=== PATIENT | female | born 1935 | race Caucasian/White ===

== ENCOUNTER 2016-10-30 19:25 | Inpatient (IN) ==
[2016-10-30 20:06] LABS: Basophils % 0.4 %; Eosinophils % 0.4 %; Hematocrit 40.5 % (35.3-44.9); Hemoglobin 13.5 g/dL (11.5-15.4); Immature Granulocytes % 0.4 % (0-4); Immature Platelets 3.4 % (1.1-6.1); Lymphocytes # 0.3 K/mcL (0.6-4.6); Mean Corpuscular HGB Conc 33.3 g/dL (31.6-35.5); Mean Corpuscular Volume 92.9 fL (83.0-100.0); Mean Platelet Volume 10.3 fL (9.4-12.4); Monocytes # 0.4 K/mcL (0.0-1.3); Monocytes % 6.9 %; Neutrophils # 4.7 K/mcL (1.6-8.9); Platelet Count 122 K/mcL (140-400); Red Blood Count 4.36 M/mcL (3.82-4.97); Red Cell Distribution Width 12.3 % (11.5-14.5); Segmented Neutrophils % 86.9 %
[2016-10-30] MEDS ORDERED: Acetaminophen 325 MG TABLET PO ONE (20:22)
[2016-10-30 20:23] LABS: Alanine Aminotransferase 12 Units/L (0-55); Albumin 3.7 g/dL (3.5-5.0); Albumin/Globulin Ratio 1.2 (1.1-2.2); Alkaline Phosphatase 88 Units/L (38-126); Aspartate Amino Transferase 28 Units/L (5-34); BUN/Creatinine Ratio 19 (6-26); Bilirubin,Total 0.8 mg/dL (0.2-1.2); Blood Urea Nitrogen 14 mg/dL (7-20); Calcium 8.6 mg/dL (8.6-10.8); Carbon Dioxide 18 mEq/L (19-29); Chloride 105 mEq/L (98-109); Glucose 116 mg/dL (70-99); Osmolality,Calculated 283 (280-300); Potassium 3.7 mEq/L (3.5-4.5); Sodium 136 mEq/L (136-145); Total Protein 6.7 g/dL (6.0-8.3); eGFR For African Americans > 60 (> 60); eGFR For Non-African Americans > 60 (> 60)
--- NOTE | 2016-10-30 20:27 | Emergency Department Note ---
Disposition Clinical Impression: Influenza B Disposition: Admitted As Inpatient Condition: Fair General Adult HPI - General Chief complaint: ED Weakness Stated complaint: generalized weakness Time Seen by Provider: 10/30/16 19:27 Source: patient, EMS Limitations: no limitations Nursing Notes Reviewed: Yes Vital Signs Reviewed: Yes - History of Present Illness HPI Narrative: 81 year old female with a past medical history of thyroid disease and HTN presented to the ED with a 4-5 day history of a non-productive cough that is causing headaches. She is also complaining of generalized fatigue and weakness. She has tried taking codeine to improve her cough but states that it did not relieve her symptoms. Associated fever and myalgias. Patient denies fever, chest pain, nausea, vomiting, diarrhea, and urinary symptoms. Pain Scale: 0 - Related Data Home Medications Medication Instructions Recorded Confirmed Clorazepate Dipotassium [Tranxene 7.5 mg PO BID PRN 10/30/16 10/30/16 T-Tab] Metoprolol XL (24 HR) Succ [Toprol 25 mg PO DAILY 10/30/16 10/30/16 XL] Sertraline [Zoloft] 25 mg PO DAILY 10/30/16 10/30/16 Allergies Allergy/AdvReac Type Severity Reaction Status Date / Time No Known Allergies Allergy Verified 10/30/16 19:29 All systems ED: reviewed and negative except as stated. Constitutional: Reports: chills, weakness Eyes: Denies: eye pain ENT ED: Denies: ear pain Cardiovascular: Denies: chest pain Respiratory: Reports: cough. Denies: dyspnea Gastrointestinal: Denies: abdominal pain, nausea Genitourinary: Denies: urgency, dysuria Musculoskeletal: Reports: other (myalgias) Integumentary: Denies: rash Neurological: Reports: headache Endocrine: Denies: fatigue Past Medical History - Past Medical History Attestation: Yes The following information was validated with the patient. Source: patient Medical history: Reports: hypertension, thyroid disease Psychiatric history: Reports: anxiety POSTER history: Reports: non-contributory - Social History Smoking Status: Never smoker Smokeless Tobacco Status: No Alcohol use: Reports: none Drug use: Reports: none Physical Exam - General Limitations: no limitations General appearance: alert, in no apparent distress - Head Head exam: atraumatic, normocephalic - Eye Eye exam: Present: normal appearance - ENT ENT exam: normal exam, normal oropharynx - Neck Neck exam: Present: normal inspection - Chest Chest inspection: Present: normal inspection, symmetric chest wall rise. Absent : tenderness - Respiratory Respiratory exam: Present: normal lung sounds bilaterally. Absent: respiratory distress, wheezes - Cardiovascular Cardiovascular exam: Present: normal rhythm, tachycardia - Abdominal Exam Abdominal exam: Present: soft, Non-Tender - Extremities Exam Extremities exam: Present: normal inspection. Absent: tenderness - Back Exam Back exam: Present: normal inspection. Absent: tenderness - Neurological Exam Neurological exam: Present: alert, oriented X3 - Psychiatric Psychiatric exam: Present: normal affect, normal mood Course - Reevaluation(s) Reevaluation #1: Patient has persistent tachycardia despite fluids. Patient's headache has required Tylenol as well as Toradol but remains. Discussed disposition with her and her family at this time she feels she is not to take care of herself and her has concerns about taking care of her home. In light of the patient's persistent tachycardia and influenza B+, it is reasonable to bring the patient in for continued observation and gentle fluid hydration. - Consultations Consultation #1: Dr. Iraheta accepts. Vital Signs Temperature 99.0 F 10/30/16 19:26 Pulse Rate 120 10/30/16 19:26 Respiratory Rate 28 10/30/16 19:26 Blood Pressure 152/81 10/30/16 19:26 O2 Sat by Pulse Oximetry 96 10/30/16 19:26 Temperature 98.1 F 10/31/16 00:49 Pulse Rate 101 10/31/16 00:49 Respiratory Rate 14 10/31/16 00:49 Blood Pressure 111/70 10/31/16 00:49 O2 Sat by Pulse Oximetry 95 10/31/16 00:49 Oxygen Delivery Oxygen Delivery Room Air Medical Decision Making - Medical Records Medical records reviewed: Yes I reviewed the patient's medical records. - Lab Data Lab results reviewed: Yes I reviewed the patient's lab results. Result diagrams: 10/30/16 19:57 10/30/16 19:57 Lab Results 10/30/16 10/30/16 10/30/16 Range/Units 19:34 19:57 19:57 WBC 5.4 (4.3-11.1) K/mcL RBC 4.36 (3.82-4.97) M/mcL Hgb 13.5 (11.5-15.4) g/dL Hct 40.5 (35.3-44.9) % MCV 92.9 (83.0-100.0) fL MCH 31.0 (28.0-33.3) pg MCHC 33.3 (31.6-35.5) g/dL RDW 12.3 (11.5-14.5) % Plt Count 122 L (140-400) K/mcL MPV 10.3 (9.4-12.4) fL Immature Gran % 0.4 (0-4) % Seg Neutrophils % 86.9 % Lymphocytes % 5.0 % Monocytes % 6.9 % Eosinophils % 0.4 % Basophils % 0.4 % Neutrophils # 4.7 (1.6-8.9) K/mcL Lymphocytes # 0.3 L (0.6-4.6) K/mcL Monocytes # 0.4 (0.0-1.3) K/mcL Eosinophils # 0.0 (0.0-0.6) K/mcL Basophils # 0.0 (0.0-0.2) K/mcL Immature Plt Fraction 3.4 (1.1-6.1) % Sodium 136 (136-145) mEq/L Potassium 3.7 (3.5-4.5) mEq/L Chloride 105 (98-109) mEq/L Carbon Dioxide 18 L (19-29) mEq/L BUN 14 (7-20) mg/dL Creatinine 0.72 (0.57-1.11) mg/dL Est GFR ( Amer) > 60 (> 60) Est GFR (Non-Af Amer) > 60 (> 60) BUN/Creatinine Ratio 19 (6-26) Glucose 116 H (70-99) mg/dL POC Glucose 120 H (58-89) Calculated Osmolality 283 (280-300) Calcium 8.6 (8.6-10.8) mg/dL Total Bilirubin 0.8 (0.2-1.2) mg/dL AST 28 (5-34) Units/L ALT 12 (0-55) Units/L Alkaline Phosphatase 88 (38-126) Units/L Troponin I (0-0.03) ng/mL Serum Total Protein 6.7 (6.0-8.3) g/dL Albumin 3.7 (3.5-5.0) g/dL Globulin 3.0 (2.4-3.5) g/dL Albumin/Globulin Ratio 1.2 (1.1-2.2) TSH 0.686 (0.350-4.840) mcIU/mL Ur Specimen Adequacy Urine Color (Yellow) Urine Clarity (Clear) Urine pH (5.0-8.0) pH Units Ur Specific Hammond (1.010-1.025) Urine Protein (Neg-Trace) mg/dL Urine Glucose (UA) (Normal) mg/dL Urine Ketones (Negative) mg/dL Urine Blood (Negative) Urine Nitrite (Negative) Urine Bilirubin (Negative) Urine Urobilinogen (Normal) mg/dL Ur Leukocyte Esterase (Negative) Urine Microscopic RBC (0-3) per hpf Urine Microscopic WBC (0-3) per hpf Ur Squamous Epith Cells (None-Few) per lpf Urine Bacteria (None-Few) per hpf Hyaline Casts (None-Few) per lpf Ur Culture Indicated? (NO) 10/30/16 10/30/16 Range/Units 19:57 22:41 WBC (4.3-11.1) K/mcL RBC (3.82-4.97) M/mcL Hgb (11.5-15.4) g/dL Hct (35.3-44.9) % MCV (83.0-100.0) fL MCH (28.0-33.3) pg MCHC (31.6-35.5) g/dL RDW (11.5-14.5) % Plt Count (140-400) K/mcL MPV (9.4-12.4) fL Immature Gran % (0-4) % Seg Neutrophils % % Lymphocytes % % Monocytes % % Eosinophils % % Basophils % % Neutrophils # (1.6-8.9) K/mcL Lymphocytes # (0.6-4.6) K/mcL Monocytes # (0.0-1.3) K/mcL Eosinophils # (0.0-0.6) K/mcL Basophils # (0.0-0.2) K/mcL Immature Plt Fraction (1.1-6.1) % Sodium (136-145) mEq/L Potassium (3.5-4.5) mEq/L Chloride (98-109) mEq/L Carbon Dioxide (19-29) mEq/L BUN (7-20) mg/dL Creatinine (0.57-1.11) mg/dL Est GFR ( Amer) (> 60) Est GFR (Non-Af Amer) (> 60) BUN/Creatinine Ratio (6-26) Glucose (70-99) mg/dL POC Glucose (58-89) Calculated Osmolality (280-300) Calcium (8.6-10.8) mg/dL Total Bilirubin (0.2-1.2) mg/dL AST (5-34) Units/L ALT (0-55) Units/L Alkaline Phosphatase (38-126) Units/L Troponin I 0.00 (0-0.03) ng/mL Serum Total Protein (6.0-8.3) g/dL Albumin (3.5-5.0) g/dL Globulin (2.4-3.5) g/dL Albumin/Globulin Ratio (1.1-2.2) TSH (0.350-4.840) mcIU/mL Ur Specimen Adequacy Urine Color Yellow (Yellow) Urine Clarity Cloudy A (Clear) Urine pH 6.0 (5.0-8.0) pH Units Ur Specific Hammond 1.022 (1.010-1.025) Urine Protein 30 H (Neg-Trace) mg/dL Urine Glucose (UA) Normal (Normal) mg/dL Urine Ketones >=160 H (Negative) mg/dL Urine Blood Large H (Negative) Urine Nitrite Negative (Negative) Urine Bilirubin Negative (Negative) Urine Urobilinogen Normal (Normal) mg/dL Ur Leukocyte Esterase Negative (Negative) Urine Microscopic RBC 0-3 (0-3) per hpf Urine Microscopic WBC 0-3 (0-3) per hpf Ur Squamous Epith Cells Many H (None-Few) per lpf Urine Bacteria None Seen (None-Few) per hpf Hyaline Casts None Seen (None-Few) per lpf Ur Culture Indicated? NO (NO) - Radiology Data Radiology results reviewed: Yes I reviewed the patient's radiology results. Attestation Statement - Attestation Attestation: For this encounter, I have reviewed the resident, BAGGAGE [employer]ER, or PA documentation, treatment plan, and medical decision making; and I have had face to face time with this patient. 81-year-old female presents with weakness and fatigue increasing over the past 2 -3 days. Patient states her symptoms have been present for the past week however are worse over the past couple days. Patient is tachycardic on the initial evaluation which improved mildly with IV fluids. Patient has lungs that are clear to auscultation bilaterally. Laboratory evaluation revealed influenza which is a likely cause of her symptoms. Patient is a high risk patient and will be given Tamiflu. After the treatment with IV fluids the patient improved mildly but did not feel safe returning home and had difficulty with ambulation. Patient felt comfortable with the plan for admission to the hospital for IV hydration and further evaluation and observation.
[2016-10-30] MEDS ORDERED: 0.9 % Sodium Chloride 1,000 ML IV ONE (21:00)
[2016-10-30 21:03] LABS: Thyroid Stimulating Hormone 0.686 mcIU/mL (0.350-4.840)
[2016-10-30] MEDS ORDERED: 0.9 % Sodium Chloride 500 ML IV ONE (21:32)
[2016-10-30] MEDS ORDERED: Ketorolac 15 MG/ML VIAL IVP ONE (21:52)
[2016-10-30 22:49] LABS: Bilirubin,Urine Negative (Negative); Blood,Urine Large (Negative); Clarity,Urine Cloudy (Clear); Color,Urine Yellow (Yellow); Glucose,Urine (UA) Normal (Normal); Ketones,Urine >=160 mg/dL (Negative); Leukocyte Esterase,Urine Negative (Negative); Nitrite,Urine Negative (Negative); Protein,Urine 30 mg/dL (Neg-Trace); Specific Gravity,Urine 1.022 (1.010-1.025); Urobilinogen,Urine Normal (Normal)
[2016-10-30 22:51] LABS: Bacteria,Urine None Seen per hpf (None-Few); Hyaline Casts,Urine None Seen per lpf (None-Few); RBC,Urine 0-3 per hpf (0-3); Squamous Epithelial Cell,Urine Many per lpf (None-Few); WBC,Urine 0-3 per hpf (0-3)
[2016-10-31] MEDS ORDERED: Acetaminophen 325 MG TABLET PO PRN (00:57)
[2016-10-31] MEDS ORDERED: *HR* Morphine 2 MG/ML SYRINGE IVP PRN (00:57)
[2016-10-31] MEDS ORDERED: *HR* OxyCODONE Immed Rel 5 MG TABLET PO PRN (00:57)
[2016-10-31] MEDS ORDERED: Pantoprazole 40 MG VIAL IVP STA (00:57)
[2016-10-31] MEDS ORDERED: Naloxone 0.4 MG/ML INJ IVP PRN (00:57)
[2016-10-31] MEDS ORDERED: Ipratropium/Albuterol Neb 3 ML IH PRN (01:00)
[2016-10-31] MEDS ORDERED: 0.9 % Sodium Chloride 1,000 ML IVC SCH (01:00)
[2016-10-31] MEDS ORDERED: Benzonatate 100 MG CAPSULE PO PRN ×2 (01:00→01:17)
[2016-10-31] MEDS ORDERED: Dextromethorphan Polistrx(12h) 30 MG/5 ML UDC PO PRN (01:17)
--- NOTE | 2016-10-31 01:23 | Internal Med History&Physical ---
Date of Encounter: 11/27/16 Time of Encounter: 23:00 Assessment and Plan (1) SIRS due to infectious process with acute organ dysfunction Status: Acute . (2) Metabolic acidosis Status: Acute . (3) Thrombocytopenia Status: Acute . (4) Frail elderly Status: Acute . (5) Influenza B Status: Acute . (6) Dehydration symptoms Status: Acute . (7) Cephalgia Status: Acute . Qualifiers: Headache type: unspecified Headache chronicity pattern: acute headache Intractability: not intractable Qualified Code(s): R51 - Headache (8) Acute viral syndrome Status: Acute . Internal Medicine - H&P: HPI Chief complaint: Generalized weakness Admitted From: Emergency Dept Plans for Post Hospital Care: Home History of present illness: Ms. Burdick is a 81 year old female with history notable for hypertension, depression and anxiety, H/O subclinical thyroid disorder, prior history of shingles, osteoarthritis, osteopenia, nonsmoker. The patient was visited and interviewed and examined. The patient is admitted to [facility] via the emergency department when she presents via EMS services from home with a five-day history of increasing generalized weakness nonproductive cough shortness of breath chills myalgias and malaise. Symptoms are worsened in the last 2 days. Cough noteworthy for aggravation of increasing headache frequency. Trial of codeine to suppress cough of the ineffective. No overt fevers nausea vomiting abdominal pain diarrhea or constipation or urinary symptoms reported. No focus of chest pain syncopal or presyncopal complaints noted. Findings In the ED: Vital signs no temperature 99 pulse 100-120 respirations 24- 28 BP 150-152/68-81. O2 saturation 96% room air. CBC 5.4 hemoglobin 13.5 platelets 122,000. Differential normal. Metabolic panel normal except carbon dioxide 18. BUN 14 creatinine 0.72. Glucose 116 osmolality 283. Hepatic function normal. Rapid influenza A and B swab positive for "B". Chest x-ray demonstrated no acute cardiopulmonary process. Cardiac and mediastinal silhouettes normal. Scattered calcified granulomata. Lung burgess clear. No evidence for effusion pneumothorax. Osseous structures are stable. Cumulative laboratory and radiographic data base will be considered and discussed. Pertinent ancillary medical records including ECW and PCI documentation when available was reviewed and considered. Given the patient's presenting concerns, past medical history, clinical findings and symptoms, she is admitted at this time will undergo further evaluation and disposition. Orders were written as per the computerized physician food service order clerk system.......................................................................... .................... Consultative opinions will be sought as clinical circumstances justify. Pain management needs will be addressed. Laboratory+ radiographic data base will be updated as appropriate. Studies include: Cultures of blood and urine and sputum cardiac injury panel, BNP, troponin metabolic and hematologic panel, magnesium phosphorus, ionized calcium , thyroid panel lipid profile, A1c C-peptide, CRP sedimentation rate, respiratory infection profile, respiratory virus panel, blood gas, lactic acid, serologies, etc. Precautions: Aspiration, fall, delirium protocol/surveillance initiated. Telemetry with continuous hemodynamic monitoring and pulse oximetry initiated. Empiric antibiotic coverage: Intravenous Rocephin and azithromycin pending culture data. Oral Tamiflu therapy initiated. Special studies: CT chest, chest x-ray, telemetry, EKG. Pulmonary toilet: Incentive spirometry, aerosol bronchodilator, mucolytic, antitussive, supplemental oxygen. Corticosteroid therapy. CPAP/BiPAP supplemental oxygen delivery employed. Aerosol Mucomyst therapy may be employed. Fluid and electrolyte repletion efforts will proceed. Careful attention to fluid balance and renal recovery will be emphasized. Avoidance of nephrotoxic exposure and adverse drug drug interaction in the setting of impaired renal function will be monitored closely. Acute coronary syndrome protocol/surveillance initiated. DVT and PUD prophylaxis initiated: PPI therapy, intermittent pneumatic cuffs. Subcutaneous heparin was held due to thrombocytopenia. Early ambulation will be encouraged. Immunization updates recommended. Influenza and pneumococcal vaccinations as part of ongoing preventative healthcare recommendations strongly recommended. Smoking cessation counseling briefly addressed. Patient is a nonsmoker. Advanced care directive discussion briefly addressed. Patient does not declare any healthcare restrictions at this time. Cardiovascular risk appraisal and cardiovascular risk reduction efforts will be emphasized. Physical +occupational therapy may be counseled to evaluate patient's functional capacity and progressi mobility of her circumstances justify. Nutrition/dietary education counseling may be considered as circumstances justify. Outpatient medication schedules will be reviewed, confirmed and facilitated as appropriate. Reconciliation of home treatments including adjustments, substitutions and reintroduction into the treatment regimen will address necessary maintenance therapies for chronic pre-existing medical conditions. Plan of care has been reviewed and discussed in detail with the patient. Questions addressed. Hospital course dictated by clinical findings, treatment response and potential consultative interventions. Patient is at risk for further acute clinical decline due to her age, chief complaints and comorbid conditions. Condition is serious. Prognosis is guarded. CODE STATUS is full. Past Med Surg Social Fam HX - Past Medical History Source: old records reviewed Medical history: arthritis, hypertension, osteoporosis, thyroid disease, other ( H/O shingles) Psychiatric history: anxiety, depression - Past Surgical History Surgical History: appendectomy, cholecystectomy, other - Social History Smoking Status: Never smoker Smokeless Tobacco Status: No Alcohol use: none Drug use: none Occupational status: retired Current living situation: With Family Activity Level: Independent ambulation, Mostly sedentary Recent Out of Country Travel Within the Last 8 Weeks: No Exposure or Possible Exposure to Illness During Travel: No Internal Medicine - H&P: Meds Clorazepate Dipotassium [Tranxene T-Tab] 7.5 mg PO BID PRN 10/30/16 [History] Metoprolol XL (24 HR) Succ [Toprol Xl] 25 mg PO DAILY 10/30/16 [History] Sertraline [Zoloft] 25 mg PO DAILY 10/30/16 [History] Calcium Carbonate [Tums] 1,000 mg PO TID 30 Days 11/05/16 [Rx] Lactobacillus [Culturelle] 2 each PO DAILY 30 Days 11/05/16 [Rx] Allergies No Known Allergies Allergy (Verified 10/30/16 19:29) All Systems PM: A 10-system review of systems was performed and is negative for pertinent findings except as documented above in the HPI. - Constitutional Constitutional: chills, malaise, weakness, no fever(s), no night sweats - EENT Eyes: as per HPI, no change in vision, no discharge, no pain, no photophobia Ears: as per HPI, no ear discharge, no ear pain, no tinnitus Nose, mouth and throat: as per HPI, nasal congestion, post-nasal drip, sinus pain, no dysphagia, no nasal discharge, no neck pain, no sore throat - Cardiovascular Cardiovascular ROS IM: as per HPI, no chest pain, no diaphoresis, no dyspnea, no edema, no lightheadedness, no palpitations, no syncope - Respiratory Respiratory: as per HPI, cough, dyspnea, dyspnea on exertion, wheezing, chest congestion, no hemoptysis, no excessive phlegm production - Gastrointestinal Gastrointestinal: as per HPI, no abdominal pain, no diarrhea, no hematemesis, no hematochezia, no melena, no nausea, no vomiting - Genitourinary Genitourinary: as per HPI, no change in urinary stream, no dysuria, no flank pain, no hematuria - Musculoskeletal Musculoskeletal ROS IM: as per HPI, myalgias, no numbness, no tingling - Integumentary Integumentary IM: as per HPI, no rash, no unusual bruising - Neurological Neurological ROS: as per HPI, headache(s), no confusion, no convulsions, no focal weakness, no numbness, no tingling, no tremor(s) - Psychiatric Psychiatric: as per HPI - Endocrine Endocrine IM: as per HPI - Hematologic/Lymphatic Hematologic/Lymphatic: as per HPI, no easy bruising - Allergic/Immunologic Allergic/Immunologic: as per HPI - Constitutional Vitals: Temp Pulse Resp BP Pulse Ox 98.1 F 101 14 111/70 95 10/31/16 00:49 10/31/16 00:49 10/31/16 00:49 10/31/16 00:49 10/31/16 00:49 General appearance: Present: cooperative, mild distress, A&O X 3, pleasant, answers questions appropriately - Head Head exam: Present: atraumatic, normocephalic - Eye Eye exam: Present: EOMI, PERRL, conjuntiva pink, sclera anicteric Pupils: Present: normal accommodation, PERRL - ENT ENT exam: Present: mucous membranes moist, normal oropharynx - Neck Neck exam general surgery: Present: full ROM, supple, trachea midline. Absent: lymphadenopathy - Respiratory Respiratory exam: Present: decreased breath sounds, rhonchi, wheezes. Absent: accessory muscle use, rales - Cardiovascular Cardiovascular exam: Present: distant heart sounds, RRR, +S1, +S2. Absent: diastolic murmur, gallop, rubs, systolic murmur - GI/Abdominal GI/Abdominal exam: Present: normal bowel sounds, soft, no peritoneal signs. Absent: distended, tenderness - Extremities Exam Extremities exam: Present: full ROM, warm, radial pulses palpable and symetrical. Absent: calf tenderness, cyanotic, pedal edema - Neurological Exam Neurological exam: Present: alert, CN II-XII intact, oriented X3, no focal deficits. Absent: pronater drift, facial droop, speech deficit - Psychiatric Psychiatric exam: Present: normal affect, normal mood - Skin Skin exam: Present: dry, intact, warm. Absent: petechiae, rash, urticaria, vesicles Internal Med - H&P Results - Labs CBC & Chem 7: 11/05/16 08:59 11/05/16 08:59 - Impressions Vital Signs Temp Pulse Resp BP Pulse Ox 10/31/16 00:49 98.1 F 101 14 111/70 95 10/30/16 23:42 0 0/0 10/30/16 23:37 103 16 130/58 98 10/30/16 22:00 108 20 142/64 97 10/30/16 21:30 108 22 134/52 95 10/30/16 21:00 112 24 131/57 96 10/30/16 20:00 112 24 150/68 96 10/30/16 19:26 99.0 F 120 28 152/81 96 Intake and Output 10/30/16 10/30/16 10/31/16 15:59 23:59 07:59 Intake Total 500 / 500 0 / 0 Output Total 0 / 0 Balance 500 / 500 0 / 0 Intake: IV Fluids 500 / 500 0.9 % Sodium Chloride 500 500 / 500 ML @ 9999 mls/hr IV BOLUS ONE Rx#:[id number] Oral 0 / 0 Output: Urine 0 / 0 Other: Weight 94 kg 45.7 kg Blood Glucose* 120 Patient Weight 10/31/16 23:59 Weight 45.7 kg Short CBC 10/30/16 Range/Units 19:57 WBC 5.4 (4.3-11.1) K/mcL Hgb 13.5 (11.5-15.4) g/dL Hct 40.5 (35.3-44.9) % Plt Count 122 L (140-400) K/mcL Neutrophils # 4.7 (1.6-8.9) K/mcL BMP 10/30/16 Range/Units 19:57 Sodium 136 (136-145) mEq/L Potassium 3.7 (3.5-4.5) mEq/L Chloride 105 (98-109) mEq/L Carbon Dioxide 18 L (19-29) mEq/L BUN 14 (7-20) mg/dL Creatinine 0.72 (0.57-1.11) mg/dL Glucose 116 H (70-99) mg/dL Calcium 8.6 (8.6-10.8) mg/dL Cardiac Enzymes 10/30/16 Range/Units 19:57 Troponin I 0.00 (0-0.03) ng/mL Liver Function 10/30/16 Range/Units 19:57 Total Bilirubin 0.8 (0.2-1.2) mg/dL AST 28 (5-34) Units/L ALT 12 (0-55) Units/L Alkaline Phosphatase 88 (38-126) Units/L Albumin 3.7 (3.5-5.0) g/dL Urine 10/30/16 Range/Units 22:41 Urine Color Yellow (Yellow) Urine Clarity Cloudy A (Clear) Urine pH 6.0 (5.0-8.0) pH Units Ur Specific [place] 1.022 (1.010-1.025) Urine Protein 30 H (Neg-Trace) mg/dL Urine Glucose (UA) Normal (Normal) mg/dL Abnormal lab results Plt Count 122 K/mcL (140-400) L 10/30/16 19:57 Lymphocytes # 0.3 K/mcL (0.6-4.6) L 10/30/16 19:57 Carbon Dioxide 18 mEq/L (19-29) L 10/30/16 19:57 Glucose 116 mg/dL (70-99) H 10/30/16 19:57 POC Glucose 120 (58-89) H 10/30/16 19:34 Urine Clarity Cloudy (Clear) A 10/30/16 22:41 Urine Protein 30 mg/dL (Neg-Trace) H 10/30/16 22:41 Urine Ketones >=160 mg/dL (Negative) H 10/30/16 22:41 Urine Blood Large (Negative) H 10/30/16 22:41 Ur Squamous Epith Cells Many per lpf (None-Few) H 10/30/16 22:41 Allergies Allergy/AdvReac Type Severity Reaction Status Date / Time No Known Allergies Allergy Verified 10/30/16 19:29 Laboratory Results WBC 5.4 K/mcL (4.3-11.1) 10/30/16 19:57 RBC 4.36 M/mcL (3.82-4.97) 10/30/16 19:57 Hgb 13.5 g/dL (11.5-15.4) 10/30/16 19:57 Hct 40.5 % (35.3-44.9) 10/30/16 19:57 MCV 92.9 fL (83.0-100.0) 10/30/16 19:57 MCH 31.0 pg (28.0-33.3) 10/30/16 19:57 MCHC 33.3 g/dL (31.6-35.5) 10/30/16 19:57 RDW 12.3 % (11.5-14.5) 10/30/16 19:57 Plt Count 122 K/mcL (140-400) L 10/30/16 19:57 MPV 10.3 fL (9.4-12.4) 10/30/16 19:57 Immature Gran % 0.4 % (0-4) 10/30/16 19:57 Seg Neutrophils % 86.9 % 10/30/16 19:57 Lymphocytes % 5.0 % 10/30/16 19:57 Monocytes % 6.9 % 10/30/16 19:57 Eosinophils % 0.4 % 10/30/16 19:57 Basophils % 0.4 % 10/30/16 19:57 Neutrophils # 4.7 K/mcL (1.6-8.9) 10/30/16 19:57 Lymphocytes # 0.3 K/mcL (0.6-4.6) L 10/30/16 19:57 Monocytes # 0.4 K/mcL (0.0-1.3) 10/30/16 19:57 Eosinophils # 0.0 K/mcL (0.0-0.6) 10/30/16 19:57 Basophils # 0.0 K/mcL (0.0-0.2) 10/30/16 19:57 Immature Plt Fraction 3.4 % (1.1-6.1) 10/30/16 19:57 Sodium 136 mEq/L (136-145) 10/30/16 19:57 Potassium 3.7 mEq/L (3.5-4.5) 10/30/16 19:57 Chloride 105 mEq/L (98-109) 10/30/16 19:57 Carbon Dioxide 18 mEq/L (19-29) L 10/30/16 19:57 BUN 14 mg/dL (7-20) 10/30/16 19:57 Creatinine 0.72 mg/dL (0.57-1.11) 10/30/16 19:57 Est GFR ( Amer) > 60 (> 60) 10/30/16 19:57 Est GFR (Non-Af Amer) > 60 (> 60) 10/30/16 19:57 BUN/Creatinine Ratio 19 (6-26) 10/30/16 19:57 Glucose 116 mg/dL (70-99) H 10/30/16 19:57 POC Glucose 120 (58-89) H 10/30/16 19:34 Calculated Osmolality 283 (280-300) 10/30/16 19:57 Calcium 8.6 mg/dL (8.6-10.8) 10/30/16 19:57 Total Bilirubin 0.8 mg/dL (0.2-1.2) 10/30/16 19:57 AST 28 Units/L (5-34) 10/30/16 19:57 ALT 12 Units/L (0-55) 10/30/16 19:57 Alkaline Phosphatase 88 Units/L (38-126) 10/30/16 19:57 Troponin I 0.00 ng/mL (0-0.03) 10/30/16 19:57 Serum Total Protein 6.7 g/dL (6.0-8.3) 10/30/16 19:57 Albumin 3.7 g/dL (3.5-5.0) 10/30/16 19:57 Globulin 3.0 g/dL (2.4-3.5) 10/30/16 19:57 Albumin/Globulin Ratio 1.2 (1.1-2.2) 10/30/16 19:57 TSH 0.686 mcIU/mL (0.350-4.840) 10/30/16 19:57 Ur Specimen Adequacy 10/30/16 22:41 Urine Color Yellow (Yellow) 10/30/16 22:41 Urine Clarity Cloudy (Clear) A 10/30/16 22:41 Urine pH 6.0 pH Units (5.0-8.0) 10/30/16 22:41 Ur Specific [place] 1.022 (1.010-1.025) 10/30/16 22:41 Urine Protein 30 mg/dL (Neg-Trace) H 10/30/16 22:41 Urine Glucose (UA) Normal mg/dL (Normal) 10/30/16 22:41 Urine Ketones >=160 mg/dL (Negative) H 10/30/16 22:41 Urine Blood Large (Negative) H 10/30/16 22:41 Urine Nitrite Negative (Negative) 10/30/16 22:41 Urine Bilirubin Negative (Negative) 10/30/16 22:41 Urine Urobilinogen Normal mg/dL (Normal) 10/30/16 22:41 Ur Leukocyte Esterase Negative (Negative) 10/30/16 22:41 Urine Microscopic RBC 0-3 per hpf (0-3) 10/30/16 22:41 Urine Microscopic WBC 0-3 per hpf (0-3) 10/30/16 22:41 Ur Squamous Epith Cells Many per lpf (None-Few) H 10/30/16 22:41 Urine Bacteria None Seen per hpf (None-Few) 10/30/16 22:41 Hyaline Casts None Seen per lpf (None-Few) 10/30/16 22:41 Ur Culture Indicated? NO (NO) 10/30/16 22:41 Impressions Chest X-Ray 10/30/16 19:45 IMPRESSION: No acute cardiopulmonary disease. D/ / Domenic Shoemaker MD / Domenic Sohemaker MD Interpreting Provider: Domenic Shoemaker MD ................................................................................ ................................................................................ .................................................... Allergies No Known Allergies Allergy (Verified 10/30/16 19:29) Home Medications Medication Instructions Recorded Confirmed Type Clorazepate Dipotassium [Tranxene 7.5 mg PO BID PRN 10/30/16 10/30/16 History T-Tab] Metoprolol XL (24 HR) Succ [Toprol 25 mg PO DAILY 10/30/16 10/30/16 History XL] Sertraline [Zoloft] 25 mg PO DAILY 10/30/16 10/30/16 History I & O 10/28/16 10/29/16 10/30/16 10/31/16 23:59 23:59 23:59 23:59 Intake Total 500 / 500 0 / 0 Output Total 0 / 0 Balance 500 / 500 0 / 0 Weight 94 kg 45.7 kg Intake: IV Fluids 500 / 500 0.9 % Sodium Chloride 500 500 / 500 ML @ 9999 mls/hr IV BOLUS ONE Rx#:[id number] Oral 0 / 0 Output: Urine 0 / 0 Other: Blood Glucose* 120 Medications Acetaminophen (Tylenol) 650 mg PO Q6HR PRN PRN Reason: Mild Pain (1-3) Stop: 05/02/17 00:58 Albuterol/Ipratropium (Duoneb) 3 ml IH [id number] PRN; Protocol PRN Reason: Shortness Of Breath/Wheezing Stop: 05/02/17 01:01 Benzonatate (Tessalon) 100 mg PO TID DIMITRI Stop: 05/02/17 01:31 Benzonatate (Tessalon) 100 mg PO TID PRN PRN Reason: Cough Stop: 05/02/17 01:01 Clorazepate Dipotassium (Tranxene) 7.5 mg PO BID PRN PRN Reason: Anxiety Dextromethorphan Polistirix (Delsym 12-Hr) 30 mg PO Q12HR PRN PRN Reason: Cough Stop: 05/02/17 01:18 Docusate Sodium (Colace) 100 mg PO BID PRN PRN Reason: Constipation Stop: 05/02/17 00:58 Famotidine (Pepcid) 20 mg IVP Q12HR [facility] Stop: 05/02/17 06:01 Guaifenesin (Mucinex) 600 mg PO BID [facility] Stop: 05/02/17 01:01 Heparin Sodium (Porcine) (Heparin) 5,000 unit SQ Q12HCO [facility] Stop: 05/02/17 07:01 Sodium Chloride (0.9 % Sodium Chloride) 1,000 mls @ 100 mls/hr IVC .Q10H [facility] Stop: 05/02/17 01:01 Azithromycin 500 mg/ Dextrose 250 mls @ 252 mls/hr IVPB Q24H [facility] Stop: 05/02/17 09:01 Ceftriaxone Sodium 1,000 mg/ (Dextrose) 100 mls @ 200 mls/hr IVPB Q24H [facility] Stop: 05/02/17 02:01 Loratadine (Claritin) 10 mg PO DAILY [facility] PRN Reason: Protocol Stop: 05/02/17 09:01 Metoprolol Succinate (Toprol Xl) 25 mg PO DAILY [facility] Stop: 05/02/17 09:01 Montelukast Sodium (Singulair) 10 mg PO HS [facility] Stop: 05/02/17 01:31 Morphine Sulfate (Morphine Sulfate) 2 mg IVP Q4HR PRN PRN Reason: Severe Pain (7-10) Stop: 05/02/17 00:58 Naloxone HCl (Narcan) 0.4 mg IVP Q2MIN PRN PRN Reason: Opioid Reversal Stop: 05/02/17 00:58 Ondansetron HCl (Zofran) 4 mg IVP Q8HR PRN PRN Reason: Nausea And Vomiting Stop: 05/02/17 00:58 Oseltamivir Phosphate (Tamiflu) 75 mg PO BID [facility] Stop: 11/04/16 09:01 Oxycodone HCl (Roxicodone) 5 mg PO Q6HR PRN PRN Reason: Moderate Pain (4-6) Stop: 05/02/17 00:58 Sertraline HCl (Zoloft) 25 mg PO DAILY [facility] Stop: 05/02/17 09:01 Discontinued Medications Acetaminophen (Tylenol) 650 mg PO ONCE ONE Stop: 10/30/16 20:23 Last Admin: 10/30/16 20:31 Dose: 650 mg Re-Assess: [facility] Pain Assessment Document 10/30/16 21:16 BAS (Rec: 10/30/16 21:51 BAS [id number]) Patient's Stated Pain Level Pain Intensity 4 Benzonatate (Tessalon) 200 mg PO TID PRN PRN Reason: Cough Stop: 05/02/17 01:01 Sodium Chloride (0.9 % Sodium Chloride) 1,000 mls @ 9,999 mls/hr IV BOLUS ONE Stop: 10/30/16 21:05 Sodium Chloride (0.9 % Sodium Chloride) 500 mls @ 9,999 mls/hr IV BOLUS ONE Stop: 10/30/16 21:34 Last Infusion: 10/30/16 23:40 Dose: 0 mls/hr Ketorolac Tromethamine (Toradol) 10 mg IVP ONCE ONE Stop: 10/30/16 21:53 Last Admin: 10/30/16 21:56 Dose: 10 mg Re-Assess: [facility] Pain Assessment Document 10/30/16 22:41 BAS (Rec: 10/30/16 22:49 [facility] [id number]) Patient's Stated Pain Level Pain Intensity 2 Re-Assess: Medication Waste Document 10/30/16 22:41 BAS (Rec: 10/30/16 22:49 [facility] [id number]) Waste Was medication wasted Yes Waste amount 5 Amount administered 10 Oseltamivir Phosphate (Tamiflu) 75 mg PO ONCE ONE Stop: 10/30/16 21:08 Last Admin: 10/30/16 21:11 Dose: 75 mg Pantoprazole Sodium (Protonix) 40 mg IVP NOW STA Stop: 10/31/16 00:58 Microbiology Results 10/30/16 20:19 Nasopharyngeal Influenza Types A,B Antigen (JAN) - Final Nursing Notes 10/30/16 23:00 Nurse Note by Laith Stack bag #1 of 0.9NS from EMs completed at this time. Initialized on 10/30/16 23:00 - END OF NOTE 10/30/16 22:47 Transport Report by Castro Wheeler Date: 10/30/16 Transport Method: Ambulatory No Known Allergies Allergy (Verified 10/30/16 19:29) Resuscitation Status 10/30/16 19:45 ECG 12 lead ECG [ECG] Stat Mode Of Transportation: Ambulatory Reason For Exam: weakness Exam Performed At:: [facility] Medical Oxygen: Mental Status: Fall Risk: Isolation: Nurse Required for Transport: No ___ Yes Limb Restrictions: No ___ Yes Behavioral issue/Risk for Elopement: No ___ Yes Telemetry Room Notification: Destination: MRI XRAY STRESS ULTRASOUND CT DIALYSIS ENDO OTHER: Depart Time: Nurse: Transporter: Arrive Time: Received by: ___ Return Time: Nurse: Transporter: ] Initialized on 02/20/17 22:47 - END OF NOTE 10/30/16 21:09 Nurse Note by Laith Stack A IVF hung per ems unclamped to a bolus rate Initialized on 10/30/16 21:09 - END OF NOTE 10/30/16 20:44 Nurse Note by Laith Stack A Patient placed in droplet precautions per facility policy Initialized on 10/30/16 20:44 - END OF NOTE Orders 10/30/16 19:34 POC Glucometer Test [POC] Routine 10/30/16 19:45 12 lead ECG assessment [RC] NOW XR chest 2V [XR] Stat Mode Of Transportation: Ambulatory Reason For Exam: cough. weakness Order Doctor: Bassam Celis Exam Performed At:: [facility] ECG 12 lead ECG [ECG] Stat Mode Of Transportation: Ambulatory Reason For Exam: weakness Exam Performed At:: [facility] 10/30/16 19:57 Complete Blood Count [HEME] Stat Comment: Specimen: Send someone from the department to collect Comprehensive Metabolic Panel Stat Comment: Specimen: Send someone from the department to collect Culture,Blood [BC] Stat Comment: JAN Source: Peripheral Venipuncture Quantity: 1 Specimen: Send someone from the department to collect Specimen Description: Thyroid Stimulating Hormone Stat Troponin I Stat Comment: Specimen: Send someone from the department to collect 10/30/16 20:19 Rapid Influenza [Influenza A/B Antigen] [VIR] Stat Comment: JAN Source: Nasopharyngeal Specimen: Send someone from the department to collect Specimen Description: 10/30/16 20:22 Acetaminophen [Tylenol] 650 mg PO ONCE ONE 10/30/16 21:00 0.9 % Sodium Chloride 1,000 ml IV BOLUS 10/30/16 21:07 Oseltamivir [Tamiflu] 75 mg PO ONCE ONE 10/30/16 21:32 0.9 % Sodium Chloride 500 ml IV BOLUS 10/30/16 21:52 Ketorolac [Toradol] 10 mg IVP ONCE ONE 10/30/16 22:[address] Stat Comment: Reason for Visit: Influenza B. Tachycardia. Weakness 10/30/16 22:41 Urinalysis Reflex Cult & Micro [URIN] Stat Comment: Specimen: Send someone from the department to collect Source of specimen:: Not Supplied 10/31/16 00:57 Bed rest [RC] .CONT Physician Instructions: Bed rest w/bedside commode [RC] .PRN Cardiac Monitoring Med/Surg [RC] .CONT Telemetry Reason: ACS/CP Continuous pulse oximetry [RC] CONT Comment: Measure intake and output [RC] QSHIFT Measure weight [RC] DAILY Oxygen via nasal cannula Nasal Cannula 2 lpm Comment: Titrate O2 to main O2 sat greater than: 92% Peripheral IV [RC] CONT Placement to Observation Routine Physician Instructions: Reason for Visit: Difficulty breathing. Is VTE Prophylaxis Indicated?: Yes RT has an order or consult [RC] NOW Vital Signs Assessment [RC] Q4H Acetaminophen [Tylenol] 650 mg PO Q6HR PRN Docusate [Colace] 100 mg PO BID PRN Morphine [Morphine Sulfate] 2 mg IVP Q4HR PRN Naloxone [Narcan] 0.4 mg IVP Q2MIN PRN Ondansetron [Zofran] 4 mg IVP Q8HR PRN OxyCODONE Immed Rel [Roxicodone] 5 mg PO Q6HR PRN Pantoprazole [Protonix] 40 mg IVP NOW STA 10/31/16 01:00 Apply anti-embolic stockings [RC] .NOW Incentive Spirometry [RC] .6 TIMES PER HR WHILE AWAKE Respiratory Infection Panel [MOLMIC] Stat Specimen: Send someone from the department to collect Viral Culture,Respiratory [] Stat Comment: [facility] Source: Nasopharyngeal Specimen: Send someone from the department to collect Specimen Description: 0.9 % Sodium Chloride 1,000 ml IVC 100 mls/hr Benzonatate [Tessalon] 200 mg PO TID PRN GuaiFENesin ER [Mucinex] 600 mg PO BID Ipratropium/Albuterol Neb [Duoneb] 3 ml IH [id number] PRN Up with Assist Daily Comment: Physician Instructions: 10/31/16 01:07 Consult to Nutrition [CONS] Stat Comment: Consulting Provider: NUTRITION Reason for Dietary Consult: MST Score 10/31/16 01:08 Clorazepate [Tranxene] 7.5 mg PO BID PRN How will this medication be supplied?: Pharmacy to Subsitute 10/31/16 01:17 Benzonatate [Tessalon] 100 mg PO TID PRN Dextromethorphan Polistrx(12h) [Delsym 12-HR] 30 mg PO Q12HR PRN 10/31/16 01:20 Aspiration precautions [RC] .CONTINUOUS Droplet precautions [RC] CONT Falls precautions (Lonny-Figueroa [RC] q12h 10/31/16 01:30 Benzonatate [Tessalon] 100 mg PO TID Montelukast [Singulair] 10 mg PO HS 10/31/16 02:00 Troponin I Q6H Comment: Specimen: Send someone from the department to collect CefTRIAXone [Rocephin] 1,000 mg D5% in Water (Mini-Bag+) [Dextrose 5% (Minibag +) 100 ML] 100 ml IVPB Q24H 10/31/16 04:00 B-Type Natriuretic Peptide AM 0400 Comment: Specimen: Send someone from the department to collect Basic Metabolic Panel AM 0400 Comment: Specimen: Send someone from the department to collect Complete Blood Count w/o Diff [HEME] AM 0400 Comment: Specimen: Send someone from the department to collect Magnesium AM 0400 Comment: Specimen: Send someone from the department to collect Phosphorous AM 0400 Comment: Specimen: Send someone from the department to collect 10/31/16 06:00 Famotidine [Pepcid] 20 mg IVP Q12HR 10/31/16 07:00 Heparin 5,000 unit SQ Q12HCO 10/31/16 08:00 Troponin I Q6H Comment: Specimen: Send someone from the department to collect 10/31/16 09:00 Azithromycin [Zithromax] 500 mg D5% in Water [Dextrose 5%] 250 ml IVPB Q24H Loratadine [Claritin] 10 mg PO DAILY Metoprolol XL (24 HR) Succ [Toprol XL] 25 mg PO DAILY Oseltamivir [Tamiflu] 75 mg PO BID Sertraline [Zoloft] 25 mg PO DAILY 10/31/16 14:00 Troponin I Q6H Comment: Specimen: Send someone from the department to collect 10/31/16 Breakfast Clear Liquid Diet Diet Modifications: 11/01/16 01:00 Up with Assist Daily Comment: Physician Instructions: 11/02/16 01:00 Up with Assist Daily Comment: Physician Instructions: Patient Problems Acute viral syndrome (Acute) Cephalgia (Acute) Dehydration symptoms (Acute) Frail elderly (Acute) Influenza B (Acute) Metabolic acidosis (Acute) SIRS due to infectious process with acute organ dysfunction (Acute) Thrombocytopenia (Acute) Vital Signs Temp Pulse Resp BP Pulse Ox 10/31/16 00:49 98.1 F 101 14 111/70 95 10/30/16 23:42 0 0/0 10/30/16 23:37 103 16 130/58 98 10/30/16 22:00 108 20 142/64 97 10/30/16 21:30 108 22 134/52 95 10/30/16 21:00 112 24 131/57 96 10/30/16 20:00 112 24 150/68 96 10/30/16 19:26 99.0 F 120 28 152/81 96 Laboratory Results 10/30/16 10/30/16 10/30/16 Range/Units 19:34 19:57 19:57 WBC 5.4 (4.3-11.1) K/mcL RBC 4.36 (3.82-4.97) M/mcL Hgb 13.5 (11.5-15.4) g/dL Hct 40.5 (35.3-44.9) % MCV 92.9 (83.0-100.0) fL MCH 31.0 (28.0-33.3) pg MCHC 33.3 (31.6-35.5) g/dL RDW 12.3 (11.5-14.5) % Plt Count 122 L (140-400) K/mcL MPV 10.3 (9.4-12.4) fL Immature Gran % 0.4 (0-4) % Seg Neutrophils % 86.9 % Lymphocytes % 5.0 % Monocytes % 6.9 % Eosinophils % 0.4 % Basophils % 0.4 % Neutrophils # 4.7 (1.6-8.9) K/mcL Lymphocytes # 0.3 L (0.6-4.6) K/mcL Monocytes # 0.4 (0.0-1.3) K/mcL Eosinophils # 0.0 (0.0-0.6) K/mcL Basophils # 0.0 (0.0-0.2) K/mcL Immature Plt Fraction 3.4 (1.1-6.1) % Sodium 136 (136-145) mEq/L Potassium 3.7 (3.5-4.5) mEq/L Chloride 105 (98-109) mEq/L Carbon Dioxide 18 L (19-29) mEq/L BUN 14 (7-20) mg/dL Creatinine 0.72 (0.57-1.11) mg/dL Est GFR ( Amer) > 60 (> 60) Est GFR (Non-Af Amer) > 60 (> 60) BUN/Creatinine Ratio 19 (6-26) Glucose 116 H (70-99) mg/dL POC Glucose 120 H (58-89) Calculated Osmolality 283 (280-300) Calcium 8.6 (8.6-10.8) mg/dL Total Bilirubin 0.8 (0.2-1.2) mg/dL AST 28 (5-34) Units/L ALT 12 (0-55) Units/L Alkaline Phosphatase 88 (38-126) Units/L Troponin I (0-0.03) ng/mL Serum Total Protein 6.7 (6.0-8.3) g/dL Albumin 3.7 (3.5-5.0) g/dL Globulin 3.0 (2.4-3.5) g/dL Albumin/Globulin Ratio 1.2 (1.1-2.2) TSH 0.686 (0.350-4.840) mcIU/mL Ur Specimen Adequacy Urine Color (Yellow) Urine Clarity (Clear) Urine pH (5.0-8.0) pH Units Ur Specific [place] (1.010-1.025) Urine Protein (Neg-Trace) mg/dL Urine Glucose (UA) (Normal) mg/dL Urine Ketones (Negative) mg/dL Urine Blood (Negative) Urine Nitrite (Negative) Urine Bilirubin (Negative) Urine Urobilinogen (Normal) mg/dL Ur Leukocyte Esterase (Negative) Urine Microscopic RBC (0-3) per hpf Urine Microscopic WBC (0-3) per hpf Ur Squamous Epith Cells (None-Few) per lpf Urine Bacteria (None-Few) per hpf Hyaline Casts (None-Few) per lpf Ur Culture Indicated? (NO) 10/30/16 10/30/16 Range/Units 19:57 22:41 WBC (4.3-11.1) K/mcL RBC (3.82-4.97) M/mcL Hgb (11.5-15.4) g/dL Hct (35.3-44.9) % MCV (83.0-100.0) fL MCH (28.0-33.3) pg MCHC (31.6-35.5) g/dL RDW (11.5-14.5) % Plt Count (140-400) K/mcL MPV (9.4-12.4) fL Immature Gran % (0-4) % Seg Neutrophils % % Lymphocytes % % Monocytes % % Eosinophils % % Basophils % % Neutrophils # (1.6-8.9) K/mcL Lymphocytes # (0.6-4.6) K/mcL Monocytes # (0.0-1.3) K/mcL Eosinophils # (0.0-0.6) K/mcL Basophils # (0.0-0.2) K/mcL Immature Plt Fraction (1.1-6.1) % Sodium (136-145) mEq/L Potassium (3.5-4.5) mEq/L Chloride (98-109) mEq/L Carbon Dioxide (19-29) mEq/L BUN (7-20) mg/dL Creatinine (0.57-1.11) mg/dL Est GFR ( Amer) (> 60) Est GFR (Non-Af Amer) (> 60) BUN/Creatinine Ratio (6-26) Glucose (70-99) mg/dL POC Glucose (58-89) Calculated Osmolality (280-300) Calcium (8.6-10.8) mg/dL Total Bilirubin (0.2-1.2) mg/dL AST (5-34) Units/L ALT (0-55) Units/L Alkaline Phosphatase (38-126) Units/L Troponin I 0.00 (0-0.03) ng/mL Serum Total Protein (6.0-8.3) g/dL Albumin (3.5-5.0) g/dL Globulin (2.4-3.5) g/dL Albumin/Globulin Ratio (1.1-2.2) TSH (0.350-4.840) mcIU/mL Ur Specimen Adequacy Urine Color Yellow (Yellow) Urine Clarity Cloudy A (Clear) Urine pH 6.0 (5.0-8.0) pH Units Ur Specific [place] 1.022 (1.010-1.025) Urine Protein 30 H (Neg-Trace) mg/dL Urine Glucose (UA) Normal (Normal) mg/dL Urine Ketones >=160 H (Negative) mg/dL Urine Blood Large H (Negative) Urine Nitrite Negative (Negative) Urine Bilirubin Negative (Negative) Urine Urobilinogen Normal (Normal) mg/dL Ur Leukocyte Esterase Negative (Negative) Urine Microscopic RBC 0-3 (0-3) per hpf Urine Microscopic WBC 0-3 (0-3) per hpf Ur Squamous Epith Cells Many H (None-Few) per lpf Urine Bacteria None Seen (None-Few) per hpf Hyaline Casts None Seen (None-Few) per lpf Ur Culture Indicated? NO (NO) Assessments/Treatments 12 lead ECG assessment Start: 10/30/16 19: 25 Freq: Status: Active Document 10/30/16 19:33 BAS (Rec: 10/30/16 19:34 BAS [id number]) EKG Time EKG Completed 19:31 EKG performed by Caroline VARELA EKG shown to and signed by Dr. Good Cardiac monitoring Start: 10/30/16 19: 25 Freq: Status: Active Document 10/30/16 19:30 BAS (Rec: 10/30/16 19:33 BAS [id number]) Cardiac Monitoring Heart Rate 118 Monitoring Method Telemetry Rhythm Sinus Tachycardia Monitor Number hardwire Collect Specimen Start: 10/30/16 19: 25 Freq: Status: Active Document 10/30/16 20:21 BAS (Rec: 10/30/16 20:22 BAS [id number]) Collect Specimen Right Nasal culture/flu swab collected as Yes ordered Specimen(s) labled in presence of Yes patient Specimen sent to lab via Tube system Document 10/30/16 22:43 BAS (Rec: 10/30/16 22:43 BAS [id number]) Collect Specimen Urine specimen collected as ordered Yes Urine specimen collected via Clean catch kit Urine tubes collected Urinalysis tube Urine culture tube Red top tube Specimen(s) labled in presence of Yes patient Specimen sent to lab via Tube system Critical Value Reporting Start: 10/30/16 20: 39 Freq: Status: Active Document 10/30/16 20:39 BAS (Rec: 10/30/16 20:39 BAS [id number]) Critical Values Reporting Test(s) and Results + flu B Time Results Received 20:39 Lab Results Repeated Back Yes Provider Notified Yes Time Provider Contacted 20:[address] Budi Time Provider Responded 20:39 Number of Attempts to Reach Provider 1 New Orders Received No ED Discharge Assessment Start: 10/30/16 19: 25 Freq: Status: Active Document 10/30/16 23:42 BAS (Rec: 10/30/16 23:43 BAS [id number]) ED Discharge Assessment ED Discharge Disposition Admitted Med Rec/Patient Pharmacy Completed? No Admitted to 3A Bed assigned 3a44 Transported by museum technician Report given to Nurse Care transferred to (name/credentials) Yumi RN Information relayed patient's care treatments medications given condition recent/anticipated changes Clinical Documentation Summary Provided Yes: emr Pain Scale 0 Pain Scale Used Standard (1-10) Blood Pressure 0/0 Heart rate 0 Respiratory Rate 0 Oxygen Saturation 0 Comment vitals deferred Critical Care Minutes 0 ED Weakness Assessment Start: 10/30/16 19: 25 Freq: Status: Active Document 10/30/16 19:30 BAS (Rec: 10/30/16 19:33 BAS [id number]) Weakness Assessment Symptoms/Complaint Generalized Weakness Duration Constant Level Of Consciousness Awake Alert Appropriate Follows Commands Patient Orientation Person Place Time right\\ Pupil Size (mm) 4 Pupil Reaction Brisk Pupil [place] PERRL Left Pupil Size (mm) 4 Pupil Reaction Brisk Pupil [place] PERRL Speech Pattern Clear Appropriate Coherent All Four Limbs Strength Severe Weakness Fall Precautions Acute Start: 10/30/16 23: 59 Freq: Q12H Status: Active Document 10/31/16 00:30 [id number] (Rec: 10/31/16 01:53 [id number]) [facility] Fall Risk Assessment Tool Age greater than or equal to 80 years (3 points) Fall History No falls within last 6 months (0 points) Elimination, Bowel, and Urine N/A (0 pts) Medications: Includes 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 IV infusions, chest tube, indwelling Mobility Requires assistance or supervision for transfer/ ambulation (2 points) Cognition N/A (0 points) Total Fall Risk Score 9 Fall Risk Category Moderate Risk (6-13) Fall Risk Interventions Low Risk Interventions Bed in lowest position Top side rails up x 2 Secure brake on bed Use properly fitting non-skid footwear Call light and frequently needed objects within reach Encourage patients/families to call for assistance when needed Fall education including risk assessment, injury risk and routine/ Inspect environment for safety and communication risk Supervise and assist with toileting/ADLs as needed Moderate Risk Interventions Institue fall-risk tooklit ( yellow flag, yellow non-skid socks and Falls precautions (Lonny-Figueroa) Start: 10/31/16 01: 20 Freq: q12h Status: Active Document 10/31/16 00:30 [id number] (Rec: 10/31/16 01:53 [id number]) Lonny-Figueroa Fall Risk Assessment Age 71 years or more Gender Female Mental Status: Oriented & Cooperative Physical Status: Generalized Muscle Weakness Elimination: Independent & Continent Impairments: None Gait or Balance: Unsteady walking, standing, walker, crutches, furniture History of falls in past 6 months No History Mood Stabilizer Medications Not taking prior to admission Benzodiazepines Not taking prior to admission Diuretics Not taking prior to admission Narcotics Taking prior to admission Sedatives/Hypnotics Not taking prior to admission Atypical Anti-Psychotics Not taking prior to admission Alcohol Withdrawal Protocol Not on Alcohol Withdrawal Protocol Fall Risk Score 8 Fall Risk Level High Risk Fall Prevention Interventions Interventions in Place Bed in lowest position Top side rails up times 2 Secure brake on bed Use properly fitting non-skid footwear Call light and frequently needed objects within reach *Call, Don't Fall* Sign posted in room Fall education information reviewed with patient and/or family Encourage patient to call for assistance if needed Inspect environment for safety during face/face handoff or change of s Supervise and assist with toileting/ADLS as needed Interventions in Place [place] fall-risk tool kit with yellow band Remain with patient during toileting Glucose, blood point of care measurement Start: 10/30/16 19: 25 Freq: Status: Active Document 10/30/16 19:35 BAS (Rec: 10/30/16 19:35 BAS [id number]) Blood Glucose Assessment Blood Glucose* 120 IV-Invasive Line Management Start: 10/30/16 23: 59 Freq: Q4H Status: Active Document 10/31/16 00:30 [id number] (Rec: 10/31/16 01:53 [id number]) IV/Invasive Line Assessment Date IV Line Discontinued 10/31/16 Time IV Line Discontinued 00:30 IV Line Discontinue Reason leaking Condition of IV Line Removed tip intact IV Line Removal Patient Tolerance Tolerated Well IV removed/ tip intact Bleeding Controlled Expresses Understanding Labs drawn from Line* No Initial Patient Assessment Start: 10/30/16 23: 59 Freq: .ONCE Status: Active Document 10/31/16 00:57 [id number] (Rec: 10/31/16 01:07 [id number]) General Questions Date of Arrival on Unit 10/31/16 Time of Arrival on Unit 00:30 Admitted From Emergency Dept Chief Complaint weakness and headache Onset of Chief Complaint 10/26/16 History Provided By Patient Orientation To Call Light Bed Phone TV Bathroom Smoking Policy Visiting Hours Procedures ID Bracelet On Emergency Contact Name karely burdick Relationship to Patient Emergency Contact Bands applied ID band Patient Health Portal Patient was provided information on Yes accessing patient portal Patient Requests Portal Enrollment No Reason No Portal Enrollment Patient Declines Malnutrition Screening Tool (MST) Have You Recently Lost Weight Without Yes Trying If Yes, How Much Weight Have You Lost 2-13 Pounds Have You Been Eating Poorly Because of a Yes Decreased Appetite MST Score 2 Advance Directives Advance Directives Yes Advance Directives Information Provided Yes Advance Directives on File No Living Will Yes Patient Rights Copy of Rights Given and Verbalizes Yes Understanding Tobacco Free [place]: Copy of [place] [employer] Yes Statement Given and Patient Verbalizes Understanding Communication Ability Primary Language Niuean Preferred Language Niuean Workshop Manager Required No Ability to Follow Directions Good Able to Read Yes Able to Write Yes Communication Tools None Learning Preferences One-on-One Instruction Hearing Ability Normal Visual Assistive Devices Glasses Pain Assessment Do You Have Any Ongoing (Chronic) Pain No Problems Educated on Pain Scale Yes Past Medical History Medical history hypertension thyroid disease Female Surgical History cholecystectomy Additional surgical history Psychiatric history anxiety Smoking Status Never smoker Smokeless Tobacco Status No Alcohol use none Drug use none Occupational status disabled Current living situation With Family Activity level Independent ambulation Recent Out of Country Travel Within the No Last 8 Weeks Exposure or Possible Exposure to Illness No During Travel Spiritual Needs Spiritual Referral None Psychosocial Over Age 75 and Lives Alone or Over Age Yes 80 Potential Need for Follow-up Care (ECF, No Home Health, ECT) Developmentally Disabled or History of No 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 Need or No Terminal Implications Responsible for Care of Others No Financial Concerns No Suspected Abuse or Neglect No Suicidal or Homicidal Ideation No Social Service Consult Needed No Functional Assessment Eating (Feeding) Ability Independent Bathing Ability Independent Upper Body Dressing Ability Independent Lower Body Dressing Ability Independent Ambulation Ability Independent Toileting Ability Independent Bladder Continent Bowel Continent Normal Bowel Pattern 1 to 3 Times Weekly Date of Last Known Bowel Movement 10/29/16 Intake and Output, Strict Start: 10/30/16 23: 59 Freq: Q8H Status: Active Document 10/31/16 00:49 LMO (Rec: 10/31/16 00:56 LMO [id number]) Intake and Output Intake, Oral Amount 0 Output, Urine Amount 0 Measure weight Start: 10/30/16 23: 59 Freq: Status: Active Document 10/31/16 00:56 LMO (Rec: 10/31/16 00:58 LMO [id number]) Height and Weight Weight 45.7 kg Weight Measurement Method Built in [place] [facility] [employer] Start: 10/30/16 22: 52 Freq: Status: Active Document 10/30/16 22:52 EJD (Rec: 10/30/16 22:52 EJD [id number]) Pharmacy Med Vdolg Tech Home Medicatons Reconciled? Yes Was this to catch up from previous day No Does patient take 10 or more medications No ? Does patient request medication No education Do home meds include Coumadin, Xarelto, No Pradaxa, Eliquis Added Patient Preferred Pharmacy Yes Verified Allergies Yes Would Patient Like to use [facility] No Patient Pharmacy Oxygen administration Start: 10/30/16 23: 59 Freq: Q12H Status: Active Document 10/31/16 00:30 [id number] (Rec: 10/31/16 01:53 [id number]) Oxygen Oxygen Delivery Method Room Air Patient Belongings Start: 10/30/16 23: 59 Freq: .ONCE Status: Active Document 10/31/16 00:57 [id number] (Rec: 10/31/16 01:07 [id number]) Patient Belongings Belongings With Patient on Admission Yes At Bedside Patient Belongings Pants Shirt Shoes Socks Belongings Comment watch Patient Rounding Start: 10/30/16 23: 59 Freq: Q1H Status: Active Document 10/31/16 00:30 [id number] (Rec: 10/31/16 01:53 [id number]) Hourly Rounding Hourly Rounding Checked for Patient Positioning Patient Personal Items Placed Within Reach Checked Patient Pain Level Hourly Rounding Completed Yes Patient Awake Equipment in Use Specialty Bed Safety Call Light Within Reach Bed Position Low Fall Precautions Phone Within Reach Bed Brake On Side Rails Up X2 Are the Floors Free From Trip Hazards? Yes Is the Room Free From Clutter? Yes Turn and Postion Bedrest No Turn Q 2HR No Patient Position Back Positioning Aides Pillows Document 10/31/16 00:49 LMO (Rec: 10/31/16 00:56 LMO [id number]) Hourly Rounding Hourly Rounding Checked for Patient Positioning Patient Personal Items Placed Within Reach Hourly Rounding Completed Yes Patient Awake Is family present? No Safety Call Light Within Reach Bed Position Low Phone Within Reach Bed Brake On Side Rails Up X2 Are the Floors Free From Trip Hazards? Yes Is the Room Free From Clutter? 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 Date of Insertion 10/30/16 Reason for IV Insertion Provide Access for IV Medication(s) IV Catheter Type Peripheral IV Gauge (gauge) 20 Site Observation Patent [place] Dressing Applied Transparent Dressing Skin Risk Assessment Scale Start: 10/30/16 23: 59 Freq: Q12H Status: Active Document 10/31/16 00:30 [id number] (Rec: 10/31/16 01:53 [id number]) Skin Risk Assessment Scale Moisture Risk Rarely Moist Sensory Perception Slightly Limited Activity Risk Walks Occasionally Mobility Risk Slightly Limited Nutrition Risk Probably Inadequate Friction & Shear Risk No Apparent Problem Skin Risk Total Score (points) 18 System Review Start: 10/30/16 23: 59 Freq: Q8H Status: Active Document 10/31/16 00:30 [id number] (Rec: 10/31/16 01:53 [id number]) Pain Assessment Pain Present Reports Pain Pain Intensity 2 Description Ache Scale Used Numeric (1 - 10) Pain Intervention Reduced Environmental Stimuli Darkened Room Neurological Assessment Eye Opening Spontaneous Motor Obeys Commands Verbal Oriented Coma Scale Total 15 Neurologic Status Alert Patient Orientation Person Place Time Arousable To Name Speech Pattern Normal rate Normal rhythm Normal tone Appropriate Clear Coherent Patient Behavior Cooperative Mood Description Calm Relaxed right\\ Pupil Reaction Reactive Pupil [place] Equal Scleral Edema No Left Pupil Reaction Reactive Pupil [place] Equal Scleral Edema No Art Objects Supervisor Strength Equal Push/Pull Equal Numbness/Tingling No Facial Symmetry Symmetrical Neurological Comment: a/o x3 Cardiovascular Assessment Heart Sounds S1 & S2 Jugular Vein Distention None Capillary Refill < 3 Seconds Circulatory Tenderness Description None Right Radial 2+ Left Radial 2+ Right Dorsalis Pedis 2+ Left Dorsalis Pedis 2+ Has Confirmed Diagnosis of DVT, PE or No VTE Mechanical Prophylaxis Yes Documentation of Mechanical Device Graduated compression elastic hosiery Mechanical Device Location Bilateral Lower Extremities Respiratory Assessment Respiratory Symptoms Shortness of Breath on Exertion Effort Spontaneous Non-Labored Depth Normal Respiratory Pattern Regular Chest Shape Normal Expansion Symmetrical All Lung Burg[place] Clear Oxygen Delivery Method Room Air Cough Description Involuntary Non-Productive Cough Frequency Intermittent Sputum Amount None Gastrointestinal Assessment Abdomen Description Flat Soft Non-Tender 3 or more loose stools, in less than 24 No hours Nausea/Vomiting Presence None All Four Quadrants Active Flatus Presence Present Genitourinary Assessment Bladder Pattern Normal Voiding Method Bedside Commode Bladder Distention None Suprapubic Tenderness with Palpation No Comment: have not assessed urine will continue to monitor Integumentary Assessment Fingernail Color Yellow Nail Bed Appearance Pale Temperature Warm Moisture Dry Turgor Normal Color Pale All Pressure Points Assessed No Evidence of Incision/Wounds/Breakdown No Mucous membranes moist, pink and intact Yes Integumentary Comment: scar below belly button healed from Musculoskeletal Assessment Musculoskeletal Symptoms Generalized Weakness Teaching Record Start: 10/30/16 23: 59 Freq: Q12H Status: Active Document 10/31/16 00:30 [id number] (Rec: 10/31/16 01:53 [id number]) Teaching Record: General Education Topics Hospital Environment Response Verbalize understanding Methods Discussion Recipient Patient Thrombosis Risk Factor Assessment Start: 10/30/16 23: 59 Freq: .ONCE Status: Active Document 10/31/16 00:57 [id number] (Rec: 10/31/16 01:07 [id number]) Thrombosis Risk Factor Assessment Other Risk Factors No Each Risk Factor Represents 3 Points Age over 75 years Other congenital or acquired No thrombophilia - If yes, enter Type in comment Total Risk Factor Score 3 Risk Level Higher Risk Triage Start: 10/30/16 19: 25 Freq: Status: Active Document 10/30/16 19:26 [facility] (Rec: 10/30/16 19:29 [facility] [id number]) Triage Chief Complaint triage ED Weakness Patient Stated Complaint generalized weakness BABAR 3 Onset (ago) month(s) General Appearance alert in no apparent distress Work Related Injury? No Mode of arrival EMS Arrival via EMS medic 4 Source patient EMS Limitations no limitations Ebola Risk: Travel/Contact With Anyone No From Affected Area/s Has Patient Experienced Ebola Symptoms No Temperature (97.6 F-99.6 F) 99.0 F Pulse Rate 120 Respiratory Rate 28 Blood Pressure 152/81 O2 Sat by Pulse Oximetry (95-100) 96 Oxygen Delivery Room Air Height 1.47 m Weight 94 kg Weight Measurement Method Stated by Patient Pain Scale 0 Pain Scale Used Standard (1-10) Medical history hypertension thyroid disease Female surgical history cholecystectomy Psychiatric history anxiety Smoking Status Never smoker Smokeless Tobacco Status No Alcohol Use none Drug Use none Patient resides with/at Spouse Safety Concerns Feels Safe At This Time Do you currently feel hopless, have No thoughts of self harm, or thoughts of harming others History of fall in last 14 days? 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 Vital Signs Assessment Start: 10/30/16 19: 25 Freq: Status: Active Document 10/30/16 20:00 [facility] (Rec: 10/30/16 20:23 [facility] [id number]) ED Vital Signs Pain Reported No Pain Reported Pain Scale 0 Pain Scale Used Standard (1-10) Blood Pressure 150/68 Pulse Rate 112 Respiratory Rate 24 Pulse Oximetry (95-100) 96 Oxygen Delivery Room Air Document 10/30/16 21:00 BAS (Rec: 10/30/16 21:13 [facility] [id number]) ED Vital Signs Pain Reported Pain Reported Pain Scale 4 Pain Scale Used Standard (1-10) Blood Pressure 131/57 Pulse Rate 112 Respiratory Rate 24 Pulse Oximetry (95-100) 96 Oxygen Delivery Room Air Document 10/30/16 21:30 BAS (Rec: 10/30/16 21:59 [facility] [id number]) ED Vital Signs Pain Reported Pain Reported Pain Scale 4 Pain Scale Used Standard (1-10) Blood Pressure 134/52 Pulse Rate 108 Respiratory Rate 22 Pulse Oximetry (95-100) 95 Document 10/30/16 22:00 BAS (Rec: 10/30/16 22:44 BAS [id number]) ED Vital Signs Pain Reported Pain Reported Pain Scale 2 Pain Scale Used Standard (1-10) Blood Pressure 142/64 Pulse Rate 108 Respiratory Rate 20 Pulse Oximetry (95-100) 97 Oxygen Delivery Room Air Document 10/30/16 23:37 BAS (Rec: 10/30/16 23:37 BAS [id number]) ED Vital Signs Pain Reported No Pain Reported Blood Pressure 130/58 Pulse Rate 103 Respiratory Rate 16 Pulse Oximetry (95-100) 98 Oxygen Delivery Room Air Vital Signs Assessment Start: 10/30/16 23: 59 Freq: Q4H Status: Active Document 10/31/16 00:49 LMO (Rec: 10/31/16 00:56 LMO [id number]) Vital Signs with MEWS Temperature (97.6 F-99.6 F) 98.1 F Temperature Source Oral Pulse Rate 101 Respiratory Rate 14 Pulse Oximetry (95-100) 95 Oxygen Delivery Room Air Blood Pressure 111/70 Blood Pressure Location Right Arm Source Automatic Cuff Position HOB Elevated Neuro Status *recalled from last Alert documentation MEWS Score 1 Wound Assessment Start: 10/30/16 23: 59 Freq: Q8H Status: Active Document 10/31/16 00:30 [id number] (Rec: 10/31/16 01:53 [id number]) Drains Tube/Drain Discontinued No Discharge Information ED Provider: Chris Good Status: Departed Time Seen by Provider: 10/30/16 19:27 Condition: Fair Triaged At: Emergency Discharge Date/Time: 10/30/16 23:43 Emergency Discharge Disposition: Admitted As Inpatient Clinical Impression Influenza B Emergency Discharge Comment: Admit Intervention Last Done ED Weakness Assessment 10/30/16 19:30 Query Result Weakness Symptoms/Complaint Generalized Weakness Weakness Duration Constant Level Of Consciousness Awake Alert Appropriate Follows Commands Patient Orientation Person Place Time Left -Pupil Size 4 -Pupil Reaction Brisk -Pupil [place] PERRL right\\ -Pupil Size 4 -Pupil Reaction Brisk -Pupil [place] PERRL Speech Pattern Clear Appropriate Coherent All Four Limbs -Muscle Strength (Extremity) Severe Weakness ED Discharge Assessment 10/30/16 23:42 Query Result ED Discharge Disposition Admitted Med Rec/Patient Phamracy completed? 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 Report given to Nurse Care transferred to Yumi RN Information relayed patient's care treatments medications given condition recent/anticipated change Clinical Documentation Summary Provided Yes: emr Severity scale (1-10) 0 Pain Scale Used Standard (1-10) Blood Pressure 0/0 Heart rate 0 Respiratory Rate 0 Pulse Oximetry Reading 0 Comment vitals deferred Critical Care Minutes 0 Observation Discharge Date/Time: Observation Discharge Disposition: Observation Discharge Comment: Instructions: Stand-Alone Forms: Prescriptions: Visit Report - Forms: - Referrals: Jayson Bull DO (Primary Care Provider) Radiology Results Chest X-Ray 10/30/16 19:45 IMPRESSION: No acute cardiopulmonary disease. D/ / Domenic Shoemaker MD / Domenic Shoemaker MD Interpreting Provider: Domenic Shoemaker MD - Attending Attestation ED Activity Last Name: Ilda Status: Departed First Name: Roselia Priority: 3 Middle: Shanice Condition: Fair Birthdate: 1935 Arrival Date/Time: 10/30/16 19:25 Age at Arrival: 81 Arrival Mode: Ambulance Sex: F Triaged At: Language: Niuean Time Seen by Provider: 10/30/16 19:27 Stated Complaint: generalized weakness Chief Complaint: ED Weakness ED Location: [facility] ED Area: Station: Group: N ED Provider: Chris Good ED Midlevel Provider: Bassam Celis ED Nurse: Primary Care Provider: Jayson Bull Other Provider: Ruben Zaidi Jr; Kassie Lam; Karla Sellers Status/Phase DtTm/Value User/Action Departed 11/02/16 22:19:47 Sahntell Perera Referrals (Provider) Per Bull Edit 10/30/16 23:43:56 Laith Stack Referrals (Provider) Per Bull Added Admitted Observation Patient 10/30/16 23:13:56 Sonny Cadena Attending Provider María Paulson Admitting Provider Gordon Paulson In Room 10/30/16 19:57:54 Juma Levy Primary Care Provider Per Paulson With Doctor 10/30/16 19:33:13 Bassam Celis Midlevel Provider Bassam Paulson 10/30/16 19:27:29 Chris Good Ed Provider Chris Paulson In Room 10/30/16 19:25:15 SreekanthLaith A Chief Complaint ED Weakness New Stated Complaint generalized weakness New Assessments and Treatments 12 lead ECG assessment Start: 10/30/16 19: 25 Freq: Status: Discharge Document 10/30/16 19:33 BAS (Rec: 10/30/16 19:34 BAS [id number]) EKG Time EKG Completed 19:31 EKG performed by Caroline VARELA EKG shown to and signed by Dr. Good Cardiac Monitoring Med/Surg Start: 10/31/16 00: 57 Freq: .CONT Status: Discharge Document 10/31/16 11:43 [id number] (Rec: 10/31/16 11:43 [id number]) Cardiac Monitoring Strip placed in Chart Yes Alarms/Limits Heart Rate 91 EKG Method Telemetry Rhythm Sinus Rhythm WY Interval 0.15 QRS Interval 0.08 QT Interval 0.34 Document 10/31/16 20:00 [id number] (Rec: 11/01/16 07:42 [id number]) Cardiac Monitoring Monitor Number [id number] Strip placed in Chart Yes Alarms/Limits HR Alarm 110/40 Heart Rate 84 EKG Method Telemetry Rhythm Sinus Rhythm WY Interval 0.17 QRS Interval 0.06 QT Interval 0.33 Document 11/01/16 00:00 [id number] (Rec: 11/01/16 07:42 [id number]) Cardiac Monitoring Monitor Number [id number] Strip placed in Chart Yes Alarms/Limits HR Alarm 110/40 Heart Rate 88 EKG Method Telemetry Rhythm Sinus Rhythm WY Interval 0.12 QRS Interval 0.06 QT Interval 0.30 Document 11/01/16 07:40 [id number] (Rec: 11/01/16 07:41 [id number]) Cardiac Monitoring Monitor Number [id number] Strip placed in Chart Yes Alarms/Limits HR Alarm 110/40 Heart Rate 92 EKG Method Telemetry Rhythm Sinus Rhythm WY Interval 0.13 QRS Interval 0.09 QT Interval 0.33 Document 11/01/16 07:42 [id number] (Rec: 11/01/16 07:43 [id number]) Cardiac Monitoring Monitor Number 8 Strip placed in Chart Yes Document 11/01/16 19:58 [facility] (Rec: 11/02/16 06:19 [facility]-[id number]) Cardiac Monitoring Monitor Number [id number] Strip placed in Chart Yes History Reviewed Yes Memory Cleared No Alarms/Limits HR Alarm 110/40 Heart Rate 87 EKG Method Telemetry Rhythm Sinus Rhythm W[place] Interval .10 QRS Interval .10 QT Interval .35 Document 11/02/16 00:18 [facility] (Rec: 11/02/16 06:19 [facility]-[id number]) Cardiac Monitoring Monitor Number 8 Strip placed in Chart Yes History Reviewed Yes Memory Cleared No Alarms/Limits HR Alarm 110/40 EKG Method Telemetry Rhythm Sinus Rhythm W[place] Interval .10 QRS Interval .10 QT Interval .33 Document 11/02/16 03:20 [facility] (Rec: 11/02/16 06:19 [facility]-[id number]) Cardiac Monitoring Monitor Number [id number] Strip placed in Chart Yes History Reviewed Yes Memory Cleared No Alarms/Limits HR Alarm 110/40 EKG Method Telemetry Rhythm Sinus Rhythm WY Interval .09 QRS Interval .14 QT Interval .31 Document 11/02/16 12:00 WDT (Rec: 11/02/16 18:31 WDT [id number]) Cardiac Monitoring Monitor Number [id number] Strip placed in Chart Yes History Reviewed Yes Alarms/Limits SBP Alarm 110 DBP Alarm 40 Heart Rate 84 EKG Method Telemetry Rhythm Sinus Rhythm WY Interval 0.11 QRS Interval 0.07 QT Interval 0.40 Document 11/03/16 11:56 JLR (Rec: 11/03/16 11:57 JLR [id number]) Cardiac Monitoring Monitor Number 8 Alarms/Limits SBP Alarm 110 DBP Alarm 40 Heart Rate 77 EKG Method Telemetry Rhythm Sinus Rhythm WY Interval 0.14 QRS Interval 0.11 QT Interval 0.37 Document 11/04/16 11:45 JLR (Rec: 11/04/16 11:46 JLR [id number]) Cardiac Monitoring Monitor Number 8 Strip placed in Chart Yes Memory Cleared No Alarms/Limits SBP Alarm 110 DBP Alarm 40 Heart Rate 70 EKG Method Telemetry Rhythm Sinus Rhythm WY Interval 0.16 QRS Interval 0.11 QT Interval 0.41 Cardiac monitoring Start: 10/30/16 19: 25 Freq: Status: Discharge Document 10/30/16 19:30 BAS (Rec: 10/30/16 19:33 BAS [id number]) Cardiac Monitoring Heart Rate 118 Monitoring Method Telemetry Rhythm Sinus Tachycardia Monitor Number shelbie Collect Specimen Start: 10/30/16 19: 25 Freq: Status: Discharge Document 10/30/16 20:21 BAS (Rec: 10/30/16 20:22 BAS [id number]) Collect Specimen Right Nasal culture/flu swab collected as Yes ordered Specimen(s) labled in presence of Yes patient Specimen sent to lab via Tube system Document 10/30/16 22:43 BAS (Rec: 10/30/16 22:43 BAS [id number]) Collect Specimen Urine specimen collected as ordered Yes Urine specimen collected via Clean catch kit Urine tubes collected Urinalysis tube Urine culture tube Red top tube Specimen(s) labled in presence of Yes patient Specimen sent to lab via Tube system Critical Value Reporting Start: 10/30/16 20: 39 Freq: Status: Discharge Document 10/30/16 20:39 BAS (Rec: 10/30/16 20:39 BAS [id number]) Critical Values Reporting Test(s) and Results + flu B Time Results Received 20:39 Lab Results Repeated Back Yes Provider Notified Yes Time Provider Contacted 20:[address] Good Time Provider Responded 20:39 Number of Attempts to Reach Provider 1 New Orders Received No Hot Braider Nutrition Assessment Start: 10/31/16 15: 18 Freq: Status: Discharge Document 10/31/16 15:18 CCP (Rec: 10/31/16 15:25 CCP [id number]) Nutritional Assessment - Hot Braider Subjective Data: MST of 2, 2-13# wt loss. 81 YOF, +influenza B, dehydration, SIRS. Pt c/o nausea with small amount of emesis this AM. Only able to take a few sips of lemon-tribe soda at [facility]. Pt reports decreased appetite and intakes over the past month, assumes wt loss but cannot give many details. Diet adavnced to full liquids at [facility] today. Hx: HTN, depression/anxiety Labs: BG 65, alb 3.7 Meds: Tamiflu, IVF @ 100ml/hr Sullivan Body Weight 95 Weight During Past 3 Months Has Decreased Comment CBW: 94# Diet full liquids Adequate Intake Prior to Admission No Gastrointestinal Symptoms Nausea Vomiting Calories Needed to Maintain Weight 1300kcal (30kcal/kg) Estimated Protein Needs 52gm (1.2gm/kg) Initial assessment face to face time Inadequate food/beverage with patient (mins) intake Nutrition Problem PES Statement r/t n/v aeb po intakes <25% today. Initial Assessment Face to face time 15 with patient (mins) (minutes) Nutrition Intervention: Meals and Snacks Comment 1. Diet: full liquids- recommend to advance as tolerated 2. Will assess need for addition of ONS once tolerance improves Nutrition Monitoring: Energy Intake Gastrointestinal Profile Comment f/u 11/02 Document 11/02/16 11:37 CCP (Rec: 11/02/16 11:45 CCP [id number]) Nutritional Assessment - Hot Braider Subjective Data: Pt with +influenza B. Reports appetite still poor, but denies any n/v. c/o some diarrhea the past couple of days. Was started on Culturelle. Only ate 20% at [facility]K this AM. Agreeable to Ensure. Electrolytes being replaced. Labs: WBC 1.7, K+ 3.2 Meds: D5.9 w/ KCl, Culturelle Sullivan Body Weight 95 Weight During Past 3 Months Has Decreased Comment CBW: 101# Diet Regular Feeding Problems Lack of Appetite Calories Needed to Maintain Weight 1300kcal (30kcal/kg) Estimated Protein Needs 52gm (1.2gm/kg) Initial assessment face to face time Inadequate food/beverage with patient (mins) intake Nutrition Problem PES Statement r/t n/v aeb po intakes <25% today. Subsequent Assessments Face to face time 15 with patient (mins) (minutes) Nutrition Intervention: Meals and Snacks Oral Nutrition Supplement Comment 1. Add Ensure PLUS, TID Nutrition Monitoring: Energy Intake Gastrointestinal Profile Comment f/u 11/07 Document 11/04/16 14:59 ADM (Rec: 11/04/16 15:01 ADM [id number]) Nutritional Assessment - Hot Braider Subjective Data: F/U - 11/04 - Nurse c/s for poor po intakes and pt not liking ensure. Will d/c van ensure and will send clear ensure tid. Documented po intakes 15% - D- 11/03, 100 % brk this am Sullivan Body Weight 95 Weight During Past 3 Months Has Decreased Comment CBW: 96 lbs Diet Regular Comment ensure van tid Adequate Intake Prior to Admission No Feeding Problems Lack of Appetite Calories Needed to Maintain Weight 1300kcal (30kcal/kg) Estimated Protein Needs 52gm (1.2gm/kg) Initial assessment face to face time Inadequate food/beverage with patient (mins) intake Nutrition Problem PES Statement r/t n/v aeb po intakes <25% today. Nutrition Intervention: Meals and Snacks Oral Nutrition Supplement Comment 1. D/C Vanilla ensure will try clear ensure tid Nutrition Monitoring: Energy Intake Gastrointestinal Profile Comment f/u 11/06 - supplement acceptance Discharge Assessment Start: 10/30/16 23: 13 Freq: Status: Discharge Document 11/05/16 12:39 MED (Rec: 11/05/16 12:42 MED [id number]) Discharge Assessment Discharge Disposition HOSPITAL TRANSFER Mode of Discharge Ambulance/EMS Accompanied By Ambulance Personnel Belongings sent with patient Yes Summary of Care Provided Yes Patient was provided information on Yes accessing patient portal Level Of Consciousness Awake Alert Appropriate Eating (Feeding) Ability Independent Bathing Ability Independent Upper Body Dressing Ability Independent Lower Body Dressing Ability Independent Ambulation Ability Minimum Assistance 1 Person Assist Toileting Ability Independent Bowel Continent Bladder Continent Has Patient Been in Isolation During Yes Hospital Stay Isolation Droplet Doctor's Appointment Made Yes Patient Education Given Yes Discharge Instructions Given To Patient Family Member Discharge Instructions Address Activity Diet Medications Follow Up Problems Was patient discharged on Warfarin for No confirmed VTE diagnosis? Was patient discharged with diagnosis of No ischemic or hemmorrhagic stroke? Flu Vaccine Given No Reason Flu Vaccine Not Given No indications present Vaccine administration documented on Yes EMAR Droplet precautions Start: 10/31/16 01: 20 Freq: CONT Status: Discharge Document 10/31/16 08:29 [id number] (Rec: 10/31/16 08:34 [id number]) Document 11/01/16 08:00 DH (Rec: 11/01/16 11:27 DH [id number]) Document 11/02/16 08:20 WDT (Rec: 11/02/16 16:39 WDT [id number]) Document 11/03/16 09:00 JLR (Rec: 11/03/16 10:47 JLR [id number]) Document 11/04/16 09:00 JLR (Rec: 11/04/16 10:38 JLR [id number]) Document 11/05/16 13:32 MED (Rec: 11/05/16 13:32 MED [id number]) ED Discharge Assessment Start: 10/30/16 19: 25 Freq: Status: Discharge Document 10/30/16 23:42 BAS (Rec: 10/30/16 23:43 BAS [id number]) ED Discharge Assessment ED Discharge Disposition Admitted Med Rec/Patient Pharmacy Completed? No Admitted to 3A Bed assigned 3a44 Transported by museum technician Report given to Nurse Care transferred to (name/credentials) Yumi RN Information relayed patient's care treatments medications given condition recent/anticipated changes Clinical Documentation Summary Provided Yes: emr Pain Scale 0 Pain Scale Used Standard (1-10) Blood Pressure (mm Hg) 0/0 Heart rate 0 Respiratory Rate (breaths/min) 0 Oxygen Saturation 0 Comment vitals deferred Critical Care Minutes 0 ED Weakness Assessment Start: 10/30/16 19: 25 Freq: Status: Discharge Document 10/30/16 19:30 BAS (Rec: 10/30/16 19:33 BAS [id number]) Weakness Assessment Symptoms/Complaint Generalized Weakness Duration Constant Level Of Consciousness Awake Alert Appropriate Follows Commands Patient Orientation Person Place Time right\\ Pupil Size (mm) 4 Pupil Reaction Brisk Pupil [place] PERRL Left Pupil Size (mm) 4 Pupil Reaction Brisk Pupil [place] PERRL Speech Pattern Clear Appropriate Coherent All Four Limbs Strength Severe Weakness Fall Precautions Acute Start: 10/30/16 23: 59 Freq: Q12H Status: Discharge Document 10/31/16 00:30 [id number] (Rec: 10/31/16 01:53 [id number]) [facility] Fall Risk Assessment Tool Age greater than or equal to 80 years (3 points) Fall History No falls within last 6 months (0 points) Elimination, Bowel, and Urine N/A (0 pts) Medications: Includes 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 IV infusions, chest tube, indwelling Mobility Requires assistance or supervision for transfer/ ambulation (2 points) Cognition N/A (0 points) Total Fall Risk Score 9 Fall Risk Category Moderate Risk (6-13) Fall Risk Interventions Low Risk Interventions Bed in lowest position Top side rails up x 2 Secure brake on bed Use properly fitting non-skid footwear Call light and frequently needed objects within reach Encourage patients/families to call for assistance when needed Fall education including risk assessment, injury risk and routine/ Inspect environment for safety and communication risk Supervise and assist with toileting/ADLs as needed Moderate Risk Interventions Institue fall-risk tooklit ( yellow flag, yellow non-skid socks and Document 10/31/16 08:29 [id number] (Rec: 10/31/16 08:34 [id number]) [facility] Fall Risk Assessment Tool Age greater than or equal to 80 years (3 points) Fall History No falls within last 6 months (0 points) Elimination, Bowel, and Urine N/A (0 pts) Medications: Includes 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 IV infusions, chest tube, indwelling Mobility Requires assistance or supervision for transfer/ ambulation (2 points) Cognition N/A (0 points) Total Fall Risk Score 9 Fall Risk Category Moderate Risk (6-13) Fall Risk Interventions Low Risk Interventions Bed in lowest position Top side rails up x 2 Secure brake on bed Use properly fitting non-skid footwear Call light and frequently needed objects within reach Encourage patients/families to call for assistance when needed Fall education including risk assessment, injury risk and routine/ Inspect environment for safety and communication risk Supervise and assist with toileting/ADLs as needed Moderate Risk Interventions Institue fall-risk tooklit ( yellow flag, yellow non-skid socks and Frequent reorientation for confused patients Document 10/31/16 20:45 [id number] (Rec: 10/31/16 23:27 [id number]) [facility] Fall Risk Assessment Tool Age greater than or equal to 80 years (3 points) Fall History No falls within last 6 months (0 points) Elimination, Bowel, and Urine N/A (0 pts) Medications: Includes 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 IV infusions, chest tube, indwelling Mobility Requires assistance or supervision for transfer/ ambulation (2 points) Cognition N/A (0 points) Total Fall Risk Score 9 Fall Risk Category Moderate Risk (6-13) Fall Risk Interventions Low Risk Interventions Bed in lowest position Top side rails up x 2 Secure brake on bed Use properly fitting non-skid footwear Call light and frequently needed objects within reach Encourage patients/families to call for assistance when needed Fall education including risk assessment, injury risk and routine/ Inspect environment for safety and communication risk Supervise and assist with toileting/ADLs as needed Moderate Risk Interventions Institue fall-risk tooklit ( yellow flag, yellow non-skid socks and Document 11/01/16 08:00 (Rec: 11/01/16 11:27 [id number] Fall Risk Assessment Tool Age greater than or equal to 80 years (3 points) Fall History No falls within last 6 months (0 points) Elimination, Bowel, and Urine N/A (0 pts) Medications: Includes 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 IV infusions, chest tube, indwelling Mobility Requires assistance or supervision for transfer/ ambulation (2 points) Cognition N/A (0 points) Total Fall Risk Score 9 Fall Risk Category Moderate Risk (6-13) Fall Risk Interventions Low Risk Interventions Bed in lowest position Top side rails up x 2 Secure brake on bed Use properly fitting non-skid footwear Call light and frequently needed objects within reach Encourage patients/families to call for assistance when needed Fall education including risk assessment, injury risk and routine/ Inspect environment for safety and communication risk Supervise and assist with toileting/ADLs as needed Moderate Risk Interventions Institue fall-risk tooklit ( yellow flag, yellow non-skid socks and Document 11/01/16 21:15 [facility] (Rec: 11/01/16 23:17 [id number] Fall Risk Assessment Tool Age greater than or equal to 80 years (3 points) Fall History No falls within last 6 months (0 points) Elimination, Bowel, and Urine N/A (0 pts) Medications: Includes 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 IV infusions, chest tube, indwelling Mobility Requires assistance or supervision for transfer/ ambulation (2 points) Cognition N/A (0 points) Total Fall Risk Score 9 Fall Risk Category Moderate Risk (6-13) Fall Risk Interventions Low Risk Interventions Bed in lowest position Top side rails up x 2 Secure brake on bed Use properly fitting non-skid footwear Call light and frequently needed objects within reach Encourage patients/families to call for assistance when needed Fall education including risk assessment, injury risk and routine/ Inspect environment for safety and communication risk Supervise and assist with toileting/ADLs as needed Moderate Risk Interventions Institue fall-risk tooklit ( yellow flag, yellow non-skid socks and Document 11/02/16 08:20 [facility] (Rec: 11/02/16 16:39 [id number] Fall Risk Assessment Tool Age greater than or equal to 80 years (3 points) Fall History No falls within last 6 months (0 points) Elimination, Bowel, and Urine N/A (0 pts) Medications: Includes 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 IV infusions, chest tube, indwelling Mobility Requires assistance or supervision for transfer/ ambulation (2 points) Cognition N/A (0 points) Total Fall Risk Score 9 Fall Risk Category Moderate Risk (6-13) Fall Risk Interventions Low Risk Interventions Bed in lowest position Top side rails up x 2 Secure brake on bed Use properly fitting non-skid footwear Call light and frequently needed objects within reach Encourage patients/families to call for assistance when needed Fall education including risk assessment, injury risk and routine/ Inspect environment for safety and communication risk Supervise and assist with toileting/ADLs as needed Moderate Risk Interventions Institue fall-risk tooklit ( yellow flag, yellow non-skid socks and Document 11/02/16 20:34 [facility] (Rec: 11/02/16 21:21 [facility] [id number]) [facility] Fall Risk Assessment Tool Age greater than or equal to 80 years (3 points) Fall History No falls within last 6 months (0 points) Elimination, Bowel, and Urine N/A (0 pts) Medications: Includes 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 IV infusions, chest tube, indwelling Mobility Requires assistance or supervision for transfer/ ambulation (2 points) Cognition N/A (0 points) Total Fall Risk Score 9 Fall Risk Category Moderate Risk (6-13) Fall Risk Interventions Low Risk Interventions Bed in lowest position Top side rails up x 2 Secure brake on bed Use properly fitting non-skid footwear Call light and frequently needed objects within reach Encourage patients/families to call for assistance when needed Fall education including risk assessment, injury risk and routine/ Inspect environment for safety and communication risk Supervise and assist with toileting/ADLs as needed Moderate Risk Interventions Institue fall-risk tooklit ( yellow flag, yellow non-skid socks and Document 11/03/16 09:00 JLR (Rec: 11/03/16 10:47 JLR [id number]) [facility] Fall Risk Assessment Tool Age greater than or equal to 80 years (3 points) Fall History No falls within last 6 months (0 points) Elimination, Bowel, and Urine N/A (0 pts) Medications: Includes 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 IV infusions, chest tube, indwelling Mobility Requires assistance or supervision for transfer/ ambulation (2 points) Cognition N/A (0 points) Total Fall Risk Score 9 Fall Risk Category Moderate Risk (6-13) Fall Risk Interventions Low Risk Interventions Bed in lowest position Top side rails up x 2 Secure brake on bed Use properly fitting non-skid footwear Call light and frequently needed objects within reach Encourage patients/families to call for assistance when needed Fall education including risk assessment, injury risk and routine/ Inspect environment for safety and communication risk Supervise and assist with toileting/ADLs as needed Moderate Risk Interventions Institue fall-risk tooklit ( yellow flag, yellow non-skid socks and Document 11/03/16 21:00 [id number] (Rec: 11/03/16 23:44 [id number]) [facility] Fall Risk Assessment Tool Age greater than or equal to 80 years (3 points) Fall History No falls within last 6 months (0 points) Elimination, Bowel, and Urine N/A (0 pts) Medications: Includes 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 IV infusions, chest tube, indwelling Mobility Requires assistance or supervision for transfer/ ambulation (2 points) Cognition N/A (0 points) Total Fall Risk Score 9 Fall Risk Category Moderate Risk (6-13) Fall Risk Interventions Low Risk Interventions Bed in lowest position Top side rails up x 2 Secure brake on bed Use properly fitting non-skid footwear Call light and frequently needed objects within reach Encourage patients/families to call for assistance when needed Fall education including risk assessment, injury risk and routine/ Inspect environment for safety and communication risk Supervise and assist with toileting/ADLs as needed High Risk Interventions Remain with patient while toileting Activate bed/chair exit Move patient to room with best visual access Obtain pharmacy consult for review of medications Obtain PT consult, if pat Document 11/04/16 09:00 ALY (Rec: 11/04/16 10:38 ALY [id number]) [facility] Fall Risk Assessment Tool Age greater than or equal to 80 years (3 points) Fall History No falls within last 6 months (0 points) Elimination, Bowel, and Urine N/A (0 pts) Medications: Includes 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 IV infusions, chest tube, indwelling Mobility Requires assistance or supervision for transfer/ ambulation (2 points) Cognition N/A (0 points) Total Fall Risk Score 9 Fall Risk Category Moderate Risk (6-13) Fall Risk Interventions Low Risk Interventions Bed in lowest position Top side rails up x 2 Secure brake on bed Use properly fitting non-skid footwear Call light and frequently needed objects within reach Encourage patients/families to call for assistance when needed Fall education including risk assessment, injury risk and routine/ Inspect environment for safety and communication risk Supervise and assist with toileting/ADLs as needed Moderate Risk Interventions Institue fall-risk tooklit ( yellow flag, yellow non-skid socks and High Risk Interventions Remain with patient while toileting Activate bed/chair exit Move patient to room with best visual access Obtain pharmacy consult for review of medications Obtain PT consult, if pat Document 11/04/16 19:00 [id number] (Rec: 11/04/16 20:01 [id number]) [facility] Fall Risk Assessment Tool Age greater than or equal to 80 years (3 points) Fall History No falls within last 6 months (0 points) Elimination, Bowel, and Urine N/A (0 pts) Medications: Includes 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 IV infusions, chest tube, indwelling Mobility Requires assistance or supervision for transfer/ ambulation (2 points) Cognition N/A (0 points) Total Fall Risk Score 9 Fall Risk Category Moderate Risk (6-13) Fall Risk Interventions Low Risk Interventions Bed in lowest position Top side rails up x 2 Secure brake on bed Use properly fitting non-skid footwear Call light and frequently needed objects within reach Encourage patients/families to call for assistance when needed Fall education including risk assessment, injury risk and routine/ Inspect environment for safety and communication risk Supervise and assist with toileting/ADLs as needed High Risk Interventions Remain with patient while toileting Activate bed/chair exit Move patient to room with best visual access Obtain pharmacy consult for review of medications Obtain PT consult, if pat Document 11/05/16 09:20 MED (Rec: 11/05/16 13:22 MED [id number]) [facility] Fall Risk Assessment Tool Age greater than or equal to 80 years (3 points) Fall History No falls within last 6 months (0 points) Elimination, Bowel, and Urine N/A (0 pts) Medications: Includes 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 IV infusions, chest tube, indwelling Mobility Requires assistance or supervision for transfer/ ambulation (2 points) Cognition N/A (0 points) Total Fall Risk Score 9 Fall Risk Category Moderate Risk (6-13) Fall Risk Interventions Low Risk Interventions Bed in lowest position Top side rails up x 2 Secure brake on bed Use properly fitting non-skid footwear Call light and frequently needed objects within reach Encourage patients/families to call for assistance when needed Fall education including risk assessment, injury risk and routine/ Inspect environment for safety and communication risk Supervise and assist with toileting/ADLs as needed Moderate Risk Interventions Institue fall-risk tooklit ( yellow flag, yellow non-skid socks and High Risk Interventions Remain with patient while toileting Activate bed/chair exit Move patient to room with best visual access Obtain pharmacy consult for review of medications Obtain PT consult, if pat Falls precautions (Mark) Start: 10/31/16 01: 20 Freq: q12h Status: Complete Document 10/31/16 00:30 [id number] (Rec: 10/31/16 01:53 [id number]) [facility] Fall Risk Assessment Age 71 years or more Gender Female Mental Status: Oriented & Cooperative Physical Status: Generalized Muscle Weakness Elimination: Independent & Continent Impairments: None Gait or Balance: Unsteady walking, standing, walker, crutches, furniture History of falls in past 6 months No History Mood Stabilizer Medications Not taking prior to admission Benzodiazepines Not taking prior to admission Diuretics Not taking prior to admission Narcotics Taking prior to admission Sedatives/Hypnotics Not taking prior to admission Atypical Anti-Psychotics Not taking prior to admission Alcohol Withdrawal Protocol Not on Alcohol Withdrawal Protocol Fall Risk Score 8 Fall Risk Level High Risk Fall Prevention Interventions Interventions in Place Bed in lowest position Top side rails up times 2 Secure brake on bed Use properly fitting non-skid footwear Call light and frequently needed objects within reach *Call, Don't Fall* Sign posted in room Fall education information reviewed with patient and/or family Encourage patient to call for assistance if needed Inspect environment for safety during face/face handoff or change of s Supervise and assist with toileting/ADLS as needed Interventions in Place [place] fall-risk tool kit with yellow band Remain with patient during toileting Flu Vaccine Screen Start: 10/30/16 23: 13 Freq: Status: Discharge Document 11/05/16 12:39 MED (Rec: 11/05/16 12:42 MED [id number]) Flu Vaccine Screen Flu Vaccine Contraindications No indications present Patient meets criteria for vaccination No and consents to receive it Glucose, blood point of care measurement Start: 10/30/16 19: 25 Freq: Status: Discharge Document 10/30/16 19:35 BAS (Rec: 10/30/16 19:35 BAS [id number]) Blood Glucose Assessment Blood Glucose* 120 Hygiene activity Start: 10/30/16 23: 59 Freq: .PRN Status: Discharge Document 11/01/16 10:42 MVJ (Rec: 11/01/16 10:42 MVJ [id number]) Hygiene Bath Type Postpone Until Later IV-Invasive Line Management Start: 10/30/16 23: 59 Text: *No BP or peripheral blood draws in affected Status: Discharge extremity *Use in-line filters for all IV infusions. *Change IV tubing every 96 hours and every 24 hours for TPN *Begin infusions through new PICC with new tubing. *Do not use smaller than 10cc syringe to flush PICC * Flush each line with 10ml normal saline before and after each use, or every 12 hours or PRN while in the hospital *Flush each lumen with 20ml normal saline with each TPN bag change or disconnect, and replace the positive displacement cap. *When flushing the PICC line, flush turbulently using a "[id number]" method * Notify provider if unable to aspirate blood from either lumen * Notify Vascular Access Team of questions or concerns that arise regarding care/use of PICC Freq: Q4H Document 10/31/16 00:30 [id number] (Rec: 10/31/16 01:53 [id number]) IV/Invasive Line Assessment Date IV Line Discontinued 10/31/16 Time IV Line Discontinued 00:30 IV Line Discontinue Reason leaking Condition of IV Line Removed tip intact IV Line Removal Patient Tolerance Tolerated Well IV removed/ tip intact Bleeding Controlled Expresses Understanding Labs drawn from Line* No Document 10/31/16 08:29 [id number] (Rec: 10/31/16 08:34 [id number]) IV/Invasive Line Assessment Right Hand Reason for Line Insertion/Rationale for Replace Lost Fluids Insertion Maintain Electrolyte Balance Provide Access for IV Medication(s) Provide Access for Blood Provide Access for Emergency Gauge (gauge) 22 IV Catheter Type Peripheral IV Site Observation Intervention Inspected Line Dressing Applied Transparent Dressing Dry/Intact Line Care Saline Flush Document 10/31/16 13:42 [id number] (Rec: 10/31/16 13:42 [id number]) IV/Invasive Line Assessment Right Hand Reason for Line Insertion/Rationale for Replace Lost Fluids Insertion Maintain Electrolyte Balance Provide Access for IV Medication(s) Provide Access for Blood Provide Access for Emergency Gauge (gauge) 22 IV Catheter Type Peripheral IV Site Observation Patent Site Observation Intervention Inspected Line Dressing Applied Transparent Dressing Dry/Intact Line Care Saline Flush Document 10/31/16 17:53 [id number] (Rec: 10/31/16 18:06 [id number]) IV/Invasive Line Assessment Right Hand Reason for Line Insertion/Rationale for Replace Lost Fluids Insertion Maintain Electrolyte Balance Provide Access for IV Medication(s) Provide Access for Blood Provide Access for Emergency Gauge (gauge) 22 IV Catheter Type Peripheral IV Site Observation Patent Site Observation Intervention Inspected Line Dressing Applied Transparent Dressing Dry/Intact Line Care Saline Flush Document 10/31/16 20:45 [id number] (Rec: 10/31/16 23:27 [id number]) IV/Invasive Line Assessment Right Hand Reason for Line Insertion/Rationale for Replace Lost Fluids Insertion Provide Access for IV Medication(s) Provide Access for Emergency Gauge (gauge) 22 IV Catheter Type Peripheral IV Site Observation Patent Site Observation Intervention Inspected Line Dressing Applied Transparent Dressing Dry/Intact Line Care Saline Flush Labs drawn from Line* No Document 11/01/16 06:15 [id number] (Rec: 11/01/16 06:15 [id number]) IV/Invasive Line Assessment Right Hand Reason for Line Insertion/Rationale for Replace Lost Fluids Insertion Provide Access for IV Medication(s) Provide Access for Emergency Gauge (gauge) 22 IV Catheter Type Peripheral IV Site Observation Patent Site Observation Intervention Inspected Line Dressing Applied Transparent Dressing Dry/Intact Line Care Saline Flush Document 11/01/16 10:11 [facility] (Rec: 11/01/16 10:12 [id number] IV/Invasive Line Assessment Left Antecubital Date of Insertion 11/01/16 Time of Insertion 10:06 Insertion Attempts 2 Reason for Line Insertion/Rationale for Replace Lost Fluids Insertion Provide Access for IV Medication(s) Provide Access for Emergency Line Insertion Patient Tolerance Tolerated Well Gauge (gauge) 20 IV Catheter Type Peripheral IV Site Observation Patent Site Observation Intervention [place] IV Inserted Dressing Applied Transparent Dressing Dry/Intact Date Dressing Last Changed 11/01/16 Line Care Saline Flush Check Blood Return Labs drawn from Line* No Document 11/01/16 14:00 (Rec: 11/01/16 14:41 [id number] IV/Invasive Line Assessment Left Antecubital Date of Insertion 11/01/16 Time of Insertion 10:06 Insertion Attempts 2 Reason for Line Insertion/Rationale for Replace Lost Fluids Insertion Provide Access for IV Medication(s) Provide Access for Emergency Line Insertion Patient Tolerance Tolerated Well Gauge (gauge) 20 IV Catheter Type Peripheral IV Site Observation Patent Site Observation Intervention [place] IV Inserted Dressing Applied Transparent Dressing Dry/Intact Date Dressing Last Changed 11/01/16 Line Care Saline Flush Check Blood Return Document 11/01/16 16:00 (Rec: 11/01/16 19:13 [id number] IV/Invasive Line Assessment Left Antecubital Date of Insertion 11/01/16 Time of Insertion 10:06 Insertion Attempts 2 Reason for Line Insertion/Rationale for Replace Lost Fluids Insertion Provide Access for IV Medication(s) Provide Access for Emergency Line Insertion Patient Tolerance Tolerated Well Gauge (gauge) 20 IV Catheter Type Peripheral IV Site Observation Patent Site Observation Intervention [place] IV Inserted Dressing Applied Transparent Dressing Dry/Intact Date Dressing Last Changed 11/01/16 Line Care Saline Flush Check Blood Return Document 11/01/16 21:15 [facility] (Rec: 11/01/16 23:17 [facility] [id number]) IV/Invasive Line Assessment Left Antecubital Reason for Line Insertion/Rationale for Replace Lost Fluids Insertion Provide Access for IV Medication(s) Provide Access for Emergency Gauge (gauge) 20 IV Catheter Type Peripheral IV Site Observation Patent Site Observation Intervention [place] IV Inserted Dressing Applied Transparent Dressing Dry/Intact Line Care Saline Flush Check Blood Return Document 11/02/16 00:38 [facility] (Rec: 11/02/16 00:40 [facility] [id number]) IV/Invasive Line Assessment Left Antecubital Reason for Line Insertion/Rationale for Replace Lost Fluids Insertion Provide Access for IV Medication(s) Provide Access for Emergency Gauge (gauge) 20 IV Catheter Type Peripheral IV Site Observation Patent Site Observation Intervention [place] IV Inserted Dressing Applied Transparent Dressing Dry/Intact Line Care Saline Flush Check Blood Return Labs drawn from Line* No Document 11/02/16 08:20 WDT (Rec: 11/02/16 16:39 WDT [id number]) IV/Invasive Line Assessment Left Antecubital Reason for Line Insertion/Rationale for Replace Lost Fluids Insertion Provide Access for IV Medication(s) Provide Access for Emergency Gauge (gauge) 20 IV Catheter Type Peripheral IV Site Observation Patent Site Observation Intervention [place] IV Inserted Dressing Applied Transparent Dressing Dry/Intact Line Care Saline Flush Date IV Line Discontinued 10/31/16 Time IV Line Discontinued 00:30 IV Line Discontinue Reason leaking Condition of IV Line Removed tip intact IV Line Removal Patient Tolerance Tolerated Well IV removed/ tip intact Bleeding Controlled Expresses Understanding Labs drawn from Line* No Document 11/02/16 11:20 WDT (Rec: 11/02/16 14:48 WDT [id number]) IV/Invasive Line Assessment Left Antecubital Reason for Line Insertion/Rationale for Replace Lost Fluids Insertion Provide Access for IV Medication(s) Provide Access for Emergency Gauge (gauge) 20 IV Catheter Type Peripheral IV Site Observation Patent Site Observation Intervention [place] IV Inserted Dressing Applied Transparent Dressing Dry/Intact Line Care Saline Flush Check Blood Return Date IV Line Discontinued 10/31/16 Time IV Line Discontinued 00:30 IV Line Discontinue Reason leaking Condition of IV Line Removed tip intact IV Line Removal Patient Tolerance Tolerated Well IV removed/ tip intact Bleeding Controlled Expresses Understanding Labs drawn from Line* No Document 11/02/16 15:20 WDT (Rec: 11/02/16 18:30 WDT [id number]) IV/Invasive Line Assessment Left Antecubital Reason for Line Insertion/Rationale for Replace Lost Fluids Insertion Provide Access for IV Medication(s) Provide Access for Emergency Gauge (gauge) 20 IV Catheter Type Peripheral IV Site Observation Patent Site Observation Intervention Inspected Line Dressing Applied Transparent Dressing Dry/Intact Line Care Saline Flush Date IV Line Discontinued 10/31/16 Time IV Line Discontinued 00:30 IV Line Discontinue Reason leaking Condition of IV Line Removed tip intact IV Line Removal Patient Tolerance Tolerated Well IV removed/ tip intact Bleeding Controlled Expresses Understanding Labs drawn from Line* No Document 11/02/16 20:34 [facility] (Rec: 11/02/16 21:21 [id number]) IV/Invasive Line Assessment Left Antecubital Reason for Line Insertion/Rationale for Replace Lost Fluids Insertion Provide Access for IV Medication(s) Provide Access for Emergency Gauge (gauge) 20 IV Catheter Type Peripheral IV Site Observation Patent Site Observation Intervention Inspected Line Dressing Applied Transparent Dressing Dry/Intact Line Care Saline Flush Labs drawn from Line* No Document 11/03/16 00:35 [facility] (Rec: 11/03/16 00:35 [id number]) IV/Invasive Line Assessment Left Antecubital Reason for Line Insertion/Rationale for Replace Lost Fluids Insertion Provide Access for IV Medication(s) Provide Access for Emergency Gauge (gauge) 20 IV Catheter Type Peripheral IV Site Observation Patent Site Observation Intervention Inspected Line Dressing Applied Transparent Dressing Dry/Intact Line Care Saline Flush Date IV Line Discontinued 10/31/16 Time IV Line Discontinued 00:30 IV Line Discontinue Reason leaking Condition of IV Line Removed tip intact IV Line Removal Patient Tolerance Tolerated Well IV removed/ tip intact Bleeding Controlled Expresses Understanding Labs drawn from Line* No Document 11/03/16 02:34 [facility] (Rec: 11/03/16 02:36 [id number]) IV/Invasive Line Assessment Left Antecubital Reason for Line Insertion/Rationale for Replace Lost Fluids Insertion Provide Access for IV Medication(s) Provide Access for Emergency Gauge (gauge) 20 IV Catheter Type Peripheral IV Site Observation Patent Site Observation Intervention Inspected Line Dressing Applied Transparent Dressing Dry/Intact Line Care Saline Flush Labs drawn from Line* No Document 11/03/16 09:00 JLR (Rec: 11/03/16 10:47 JLR [id number]) IV/Invasive Line Assessment Left Antecubital Reason for Line Insertion/Rationale for Replace Lost Fluids Insertion Provide Access for IV Medication(s) Provide Access for Emergency Gauge (gauge) 20 IV Catheter Type Peripheral IV Site Observation Patent Site Observation Intervention Inspected Line Dressing Applied Transparent Dressing Dry/Intact Line Care Saline Flush Labs drawn from Line* No Document 11/03/16 11:56 JLR (Rec: 11/03/16 11:57 JLR [id number]) IV/Invasive Line Assessment Left Antecubital Reason for Line Insertion/Rationale for Replace Lost Fluids Insertion Provide Access for IV Medication(s) Provide Access for Emergency Gauge (gauge) 20 IV Catheter Type Peripheral IV Site Observation Patent Site Observation Intervention Inspected Line Dressing Applied Transparent Dressing Dry/Intact Line Care Saline Flush Labs drawn from Line* No Document 11/03/16 17:00 JLR (Rec: 11/03/16 18:35 JLR [id number]) IV/Invasive Line Assessment Left Antecubital Reason for Line Insertion/Rationale for Replace Lost Fluids Insertion Provide Access for IV Medication(s) Provide Access for Emergency Gauge (gauge) 20 IV Catheter Type Peripheral IV Site Observation Patent Site Observation Intervention Inspected Line Dressing Applied Transparent Dressing Dry/Intact Line Care Saline Flush Labs drawn from Line* No Document 11/03/16 21:00 [id number] (Rec: 11/03/16 23:44 [id number]) IV/Invasive Line Assessment Left Antecubital Reason for Line Insertion/Rationale for Replace Lost Fluids Insertion Maintain Electrolyte Balance Provide Access for IV Medication(s) Provide Access for Blood Provide Access for Emergency Gauge (gauge) 20 IV Catheter Type Peripheral IV Site Observation Patent Site Observation Intervention Inspected Line Dressing Applied Transparent Dressing Dry/Intact Line Care Saline Flush Labs drawn from Line* No Document 11/04/16 01:40 [id number] (Rec: 11/04/16 02:25 [id number]) IV/Invasive Line Assessment Left Antecubital Reason for Line Insertion/Rationale for Replace Lost Fluids Insertion Maintain Electrolyte Balance Provide Access for IV Medication(s) Provide Access for Blood Provide Access for Emergency Gauge (gauge) 20 IV Catheter Type Peripheral IV Site Observation Patent Site Observation Intervention Inspected Line Dressing Applied Transparent Dressing Dry/Intact Line Care Saline Flush Labs drawn from Line* No Document 11/04/16 05:00 [id number] (Rec: 11/04/16 05:06 [id number]) IV/Invasive Line Assessment Left Antecubital Reason for Line Insertion/Rationale for Replace Lost Fluids Insertion Maintain Electrolyte Balance Provide Access for IV Medication(s) Provide Access for Blood Provide Access for Emergency Gauge (gauge) 20 IV Catheter Type Peripheral IV Site Observation Patent Site Observation Intervention Inspected Line Dressing Applied Transparent Dressing Dry/Intact Line Care Saline Flush Labs drawn from Line* No Document 11/04/16 09:00 JLR (Rec: 11/04/16 10:38 JLR [id number]) IV/Invasive Line Assessment Left Antecubital Reason for Line Insertion/Rationale for Replace Lost Fluids Insertion Maintain Electrolyte Balance Provide Access for IV Medication(s) Provide Access for Blood Provide Access for Emergency Gauge (gauge) 20 IV Catheter Type Peripheral IV Site Observation Patent Site Observation Intervention Inspected Line Dressing Applied Transparent Dressing Dry/Intact Line Care Saline Flush Labs drawn from Line* No Document 11/04/16 11:45 JLR (Rec: 11/04/16 11:46 JLR [id number]) IV/Invasive Line Assessment Left Antecubital Reason for Line Insertion/Rationale for Replace Lost Fluids Insertion Maintain Electrolyte Balance Provide Access for IV Medication(s) Provide Access for Blood Provide Access for Emergency Gauge (gauge) 20 IV Catheter Type Peripheral IV Site Observation Patent Site Observation Intervention Inspected Line Dressing Applied Transparent Dressing Dry/Intact Line Care Saline Flush Labs drawn from Line* No Document 11/04/16 15:34 JLR (Rec: 11/04/16 15:39 JLR [id number]) IV/Invasive Line Assessment Left Antecubital Reason for Line Insertion/Rationale for Replace Lost Fluids Insertion Maintain Electrolyte Balance Provide Access for IV Medication(s) Provide Access for Blood Provide Access for Emergency Gauge (gauge) 20 IV Catheter Type Peripheral IV Site Observation Patent Site Observation Intervention Inspected Line Dressing Applied Transparent Dressing Dry/Intact Line Care Saline Flush Labs drawn from Line* No Document 11/04/16 19:00 [id number] (Rec: 11/04/16 20:01 [id number]) IV/Invasive Line Assessment Left Antecubital Reason for Line Insertion/Rationale for Replace Lost Fluids Insertion Maintain Electrolyte Balance Provide Access for IV Medication(s) Provide Access for Blood Provide Access for Emergency Gauge (gauge) 20 IV Catheter Type Peripheral IV Site Observation Patent Site Observation Intervention Inspected Line Dressing Applied Transparent Dressing Dry/Intact Line Care Saline Flush Labs drawn from Line* No Document 11/05/16 02:00 [id number] (Rec: 11/05/16 03:01 [id number]) IV/Invasive Line Assessment Left Antecubital Reason for Line Insertion/Rationale for Replace Lost Fluids Insertion Maintain Electrolyte Balance Provide Access for IV Medication(s) Provide Access for Blood Provide Access for Emergency Gauge (gauge) 20 IV Catheter Type Peripheral IV Site Observation Patent Site Observation Intervention Inspected Line Dressing Applied Transparent Dressing Dry/Intact Line Care Saline Flush Labs drawn from Line* No Document 11/05/16 06:00 [id number] (Rec: 11/05/16 06:11 [id number]) IV/Invasive Line Assessment Left Antecubital Reason for Line Insertion/Rationale for Replace Lost Fluids Insertion Maintain Electrolyte Balance Provide Access for IV Medication(s) Provide Access for Blood Provide Access for Emergency Gauge (gauge) 20 IV Catheter Type Peripheral IV Site Observation Patent Site Observation Intervention Inspected Line Dressing Applied Transparent Dressing Dry/Intact Line Care Saline Flush Labs drawn from Line* No Document 11/05/16 09:20 MED (Rec: 11/05/16 13:22 MED [id number]) IV/Invasive Line Assessment Left Antecubital Reason for Line Insertion/Rationale for Replace Lost Fluids Insertion Maintain Electrolyte Balance Provide Access for IV Medication(s) Provide Access for Blood Provide Access for Emergency Gauge (gauge) 20 IV Catheter Type Peripheral IV Site Observation Patent Site Observation Intervention Inspected Line Dressing Applied Transparent Dressing Dry/Intact Line Care Saline Flush Labs drawn from Line* No Initial Patient Assessment Start: 10/30/16 23: 59 Freq: .ONCE Status: Complete Document 10/31/16 00:57 [id number] (Rec: 10/31/16 01:07 [id number]) General Questions Date of Arrival on Unit 10/31/16 Time of Arrival on Unit 00:30 Admitted From Emergency Dept Chief Complaint weakness and headache Onset of Chief Complaint 10/26/16 History Provided By Patient Orientation To Call Light Bed Phone TV Bathroom Smoking Policy Visiting Hours Procedures ID Bracelet On Emergency Contact Name karely burdick Relationship to Patient Emergency Contact Bands applied ID band Patient Health Portal Patient was provided information on Yes accessing patient portal Patient Requests Portal Enrollment No Reason No Portal Enrollment Patient Declines Malnutrition Screening Tool (MST) Have You Recently Lost Weight Without Yes Trying If Yes, How Much Weight Have You Lost 2-13 Pounds Have You Been Eating Poorly Because of a Yes Decreased Appetite MST Score 2 Advance Directives Advance Directives Yes Advance Directives Information Provided Yes Advance Directives on File No Living Will Yes Patient Rights Copy of Rights Given and Verbalizes Yes Understanding Tobacco Free [place]: Copy of AHS Yes Statement Given and Patient Verbalizes Understanding Communication Ability Primary Language Niuean Preferred Language Niuean Workshop Manager Required No Ability to Follow Directions Good Able to Read Yes Able to Write Yes Communication Tools None Learning Preferences One-on-One Instruction Hearing Ability Normal Visual Assistive Devices Glasses Pain Assessment Do You Have Any Ongoing (Chronic) Pain No Problems Educated on Pain Scale Yes Past Medical History Medical history hypertension thyroid disease Female Surgical History cholecystectomy Additional surgical history Psychiatric history anxiety Smoking Status Never smoker Smokeless Tobacco Status No Alcohol use none Drug use none Occupational status disabled Current living situation With Family Activity level Independent ambulation Recent Out of Country Travel Within the No Last 8 Weeks Exposure or Possible Exposure to Illness No During Travel Spiritual Needs Spiritual Referral None Psychosocial Over Age 75 and Lives Alone or Over Age Yes 80 Potential Need for Follow-up Care (ECF, No Home Health, ECT) Developmentally Disabled or History of No 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 Need or No Terminal Implications Responsible for Care of Others No Financial Concerns No Suspected Abuse or Neglect No Suicidal or Homicidal Ideation No Social Service Consult Needed No Functional Assessment Eating (Feeding) Ability Independent Bathing Ability Independent Upper Body Dressing Ability Independent Lower Body Dressing Ability Independent Ambulation Ability Independent Toileting Ability Independent Bladder Continent Bowel Continent Normal Bowel Pattern 1 to 3 Times Weekly Date of Last Known Bowel Movement 10/29/16 Intake and Output, Strict Start: 10/30/16 23: 59 Text: Status: Discharge Freq: Q8H Document 10/31/16 00:49 LMO (Rec: 10/31/16 00:56 LMO [id number]) Intake and Output Intake, Oral Amount (ml) 0 Output, Urine Amount (ml) 0 Document 10/31/16 03:54 LMO (Rec: 10/31/16 03:56 LMO [id number]) Intake and Output Intake, Oral Amount (ml) 0 Output, Urine Amount (ml) 0 Document 10/31/16 16:51 LEB (Rec: 10/31/16 16:52 LEB [id number]) Intake and Output Output, Urine Amount (ml) 300 Urine Color Bright Yellow Document 10/31/16 19:18 LEB (Rec: 10/31/16 19:18 LEB [id number]) Intake and Output Intake, Oral Amount (ml) 0 Meal Dinner Percent of Meal Consumed 0% Document 10/31/16 23:25 TMC (Rec: 11/01/16 01:35 TMC [id number]) Intake and Output Intake, Oral Amount (ml) 0 Output, Urine Amount (ml) 0 Document 11/01/16 03:20 TMC (Rec: 11/01/16 03:58 TMC [id number]) Intake and Output Intake, Oral Amount (ml) 0 Output, Urine Amount (ml) 400 Urine Color Bright Yellow Document 11/01/16 07:30 MVJ (Rec: 11/01/16 07:30 MVJ [id number]) Intake and Output Stool Size Moderate Stool Consistency liquid Stool Color Brown Document 11/01/16 09:28 MDD (Rec: 11/01/16 09:28 MDD [id number]) Intake and Output Intake, Oral Amount (ml) 120 Meal Breakfast Document 11/01/16 10:42 MVJ (Rec: 11/01/16 10:42 MVJ [id number]) Intake and Output Number of Voids 1 Document 11/01/16 12:55 MDD (Rec: 11/01/16 12:56 MDD [id number]) Intake and Output Intake, Oral Amount (ml) 120 Meal Lunch Percent of Meal Consumed 5% Document 11/01/16 18:14 MDD (Rec: 11/01/16 18:14 MDD [id number]) Intake and Output Intake, Oral Amount (ml) 240 Meal Dinner Percent of Meal Consumed 100% Document 11/01/16 19:18 TMC (Rec: 11/01/16 19:24 [id number]) Intake and Output Intake, Oral Amount (ml) 0 Output, Urine Amount (ml) 0 Document 11/02/16 00:52 TMC (Rec: 11/02/16 00:53 [id number]) Intake and Output Intake, Oral Amount (ml) 200 Output, Urine Amount (ml) 0 Document 11/02/16 04:25 TMC (Rec: 11/02/16 05:37 [id number]) Intake and Output Intake, Oral Amount (ml) 100 Output, Urine Amount (ml) 0 Document 11/02/16 07:35 [id number] (Rec: 11/02/16 07:36 [id number]) Intake and Output Intake, Oral Amount (ml) 0 Output, Urine Amount (ml) 800 Urine Color Bright Yellow Document 11/02/16 08:20 WDT (Rec: 11/02/16 16:39 WDT [id number]) Intake and Output Intake, Oral Amount (ml) 0 Output, Urine Amount (ml) 0 Document 11/02/16 09:38 KEB (Rec: 11/02/16 09:38 KEB [id number]) Intake and Output Intake, Oral Amount (ml) 0 Meal Breakfast Percent of Meal Consumed 20% Document 11/02/16 09:56 [id number] (Rec: 11/02/16 09:56 [id number]) Intake and Output Intake, Oral Amount (ml) 0 Meal Breakfast Percent of Meal Consumed 20% Document 11/02/16 11:52 [id number] (Rec: 11/02/16 11:53 GC7514 [id number]) Intake and Output Intake, Oral Amount (ml) 0 Output, Urine Amount (ml) 400 Urine Color Bright Yellow Document 11/02/16 15:51 [id number] (Rec: 11/02/16 15:52 [id number]) Intake and Output Intake, Oral Amount (ml) 0 Output, Urine Amount (ml) 0 Number of Bowel Movement Diapers (0-100 1 void) Document 11/02/16 17:57 [id number] (Rec: 11/02/16 17:57 EU4566 [id number]) Intake and Output Intake, Oral Amount (ml) 0 Meal Dinner Percent of Meal Consumed 5% Document 11/02/16 19:30 TMC (Rec: 11/02/16 19:46 TMC [id number]) Intake and Output Intake, Oral Amount (ml) 0 Output, Urine Amount (ml) 600 Urine Color Pale Document 11/02/16 23:25 TMC (Rec: 11/02/16 23:26 TMC [id number]) Intake and Output Intake, Oral Amount (ml) 200 Output, Urine Amount (ml) 300 Urine Color Pale Document 11/03/16 03:23 TMC (Rec: 11/03/16 03:34 TMC [id number]) Intake and Output Intake, Oral Amount (ml) 200 Output, Urine Amount (ml) 400 Urine Color Bright Yellow Document 11/03/16 07:30 LEB (Rec: 11/03/16 07:31 LEB [id number]) Intake and Output Output, Urine Amount (ml) 350 Urine Color Pale Bright Yellow Document 11/03/16 10:10 SMT (Rec: 11/03/16 10:10 SMT [id number]) Intake and Output Meal Breakfast Percent of Meal Consumed 15% Document 11/03/16 12:41 LEB (Rec: 11/03/16 12:42 LEB [id number]) Intake and Output Output, Urine Amount (ml) 300 Urine Color Pale Bright Yellow Document 11/03/16 13:15 JMW (Rec: 11/03/16 17:29 JMW [id number]) Intake and Output Output, Urine Amount (ml) 300 Urine Color Pale Document 11/03/16 17:00 JMW (Rec: 11/03/16 17:29 JMW [id number]) Intake and Output Output, Urine Amount (ml) 400 Urine Color Pale Document 11/03/16 19:16 LMO (Rec: 11/03/16 19:25 LMO [id number]) Intake and Output Intake, Oral Amount (ml) 0 Output, Urine Amount (ml) 0 Document 11/04/16 00:31 EGH (Rec: 11/04/16 00:38 EGH [id number]) Intake and Output Intake, Oral Amount (ml) 0 Output, Urine Amount (ml) 0 Document 11/04/16 05:00 [id number] (Rec: 11/04/16 05:06 [id number]) Intake and Output Intake, Oral Amount (ml) 60 Output, Urine Amount (ml) 300 Urine Color Dark Yellow Document 11/04/16 07:22 BEH (Rec: 11/04/16 07:23 BEH [id number]) Intake and Output Intake, Oral Amount (ml) 1,000 Output, Urine Amount (ml) 0 Document 11/04/16 10:04 BEH (Rec: 11/04/16 10:04 BEH [id number]) Intake and Output Intake, Oral Amount (ml) 120 Meal Breakfast Percent of Meal Consumed 100% Document 11/04/16 10:45 BEH (Rec: 11/04/16 10:45 BEH [id number]) Intake and Output Intake, Oral Amount (ml) 100 Output, Urine Amount (ml) 300 Urine Color Bright Yellow Document 11/04/16 15:14 BEH (Rec: 11/04/16 15:14 BEH [id number]) Intake and Output Intake, Oral Amount (ml) 0 Output, Urine Amount (ml) 0 Document 11/04/16 19:00 [id number] (Rec: 11/04/16 20:01 [id number]) Intake and Output Intake, Oral Amount (ml) 120 Meal Dinner Percent of Meal Consumed 50% Oral Supplements* Ensure clear 6.8 oz bottle Output, Urine Amount (ml) 400 Stool Consistency loose Stool Characteristics Mucoid Stool Color Brown Document 11/04/16 22:11 [facility] (Rec: 11/04/16 22:12 [id number]) Intake and Output Intake, Oral Amount (ml) 0 Output, Urine Amount (ml) 300 Urine Color Straw Document 11/05/16 00:42 CMT (Rec: 11/05/16 00:43 CMT [id number]) Intake and Output Intake, Oral Amount (ml) 100 Output, Urine Amount (ml) 0 Document 11/05/16 04:11 CMT (Rec: 11/05/16 04:11 [id number]) Intake and Output Intake, Oral Amount (ml) 0 Output, Urine Amount (ml) 0 Document 11/05/16 06:55 BEH (Rec: 11/05/16 07:03 BEH [id number]) Intake and Output Intake, Oral Amount (ml) 1,000 Output, Urine Amount (ml) 0 Document 11/05/16 08:53 JSB (Rec: 11/05/16 08:54 JSB [id number]) Intake and Output Intake, Oral Amount (ml) 0 Meal Breakfast Percent of Meal Consumed 0% Document 11/05/16 09:20 MED (Rec: 11/05/16 13:24 MED [id number]) Intake and Output Output, Urine Amount (ml) 600 Urine Color Pale Document 11/05/16 11:30 BEH (Rec: 11/05/16 11:31 BEH [id number]) Intake and Output Intake, Oral Amount (ml) 400 Output, Urine Amount (ml) 500 Urine Color Bright Yellow Measure intake and output Start: 10/31/16 00: 57 Freq: QSHIFT Status: Complete Document 10/31/16 12:00 LEB (Rec: 10/31/16 12:26 LEB [id number]) Intake and Output Number of Voids 1 Stool Size Large Stool Consistency liquid soft formed Stool Color Brown Document 10/31/16 19:41 EGH (Rec: 10/31/16 19:47 EGH [id number]) Intake and Output Intake, Oral Amount (ml) 0 Output, Urine Amount (ml) 0 Measure weight Start: 10/30/16 23: 59 Freq: Status: Discharge Document 10/31/16 00:56 LMO (Rec: 10/31/16 00:58 LMO [id number]) Height and Weight Weight 45.7 kg Weight Measurement Method [facility] in [facility] Measure weight Start: 10/31/16 00: 57 Freq: DAILY Status: Discharge Document 10/31/16 05:33 LMO (Rec: 10/31/16 05:34 LMO [id number]) Height and Weight Weight 92.6 kg Weight Measurement Method Built in [facility] Document 11/01/16 03:20 TMC (Rec: 11/01/16 03:58 C [id number]) Height and Weight Weight 46.437 kg Weight Measurement Method Built in [facility] Document 11/02/16 04:25 TMC (Rec: 11/02/16 05:37 TMC [id number]) Height and Weight Weight 45.948 kg Weight Measurement Method Built in [facility] Document 11/03/16 03:23 TMC (Rec: 11/03/16 03:34 C [id number]) Height and Weight Weight 43.743 kg Weight Measurement Method Built in [facility] Document 11/05/16 05:04 CMT (Rec: 11/05/16 05:04 CMT [id number]) Height and Weight Weight 43.6 kg Weight Measurement Method Built in [facility] Rec Tech Start: 10/30/16 22: 52 Freq: Status: Complete Document 10/30/16 22:52 EJD (Rec: 10/30/16 22:52 EJD [id number]) Pharmacy Med Rec Tech Home Medicatons Reconciled? Yes Was this to catch up from previous day No Does patient take 10 or more medications No ? Does patient request medication No education Do home meds include Coumadin, Xarelto, No Pradaxa, Eliquis Added Patient Preferred Pharmacy Yes Verified Allergies Yes Would Patient Like to use [place] [facility] No Patient Pharmacy Neutropenic precautions Start: 11/02/16 11: 55 Freq: NOW Status: Discharge Document 11/03/16 11:56 JLR (Rec: 11/03/16 11:57 JLR [id number]) Document 11/04/16 09:00 JLR (Rec: 11/04/16 10:38 JLR [id number]) Document 11/05/16 09:20 MED (Rec: 11/05/16 13:22 MED [id number]) Oxygen administration Start: 10/30/16 23: 59 Freq: Q12H Status: Discharge Document 10/31/16 00:30 [id number] (Rec: 10/31/16 01:53 [id number]) Oxygen Oxygen Delivery Method Room Air Document 10/31/16 13:42 [id number] (Rec: 10/31/16 13:42 [id number]) Oxygen Oxygen Delivery Method Room Air Document 10/31/16 20:45 [id number] (Rec: 10/31/16 23:27 [id number]) Oxygen O2 Sat by Pulse Oximetry (95-100 %) 95 Oxygen Delivery Method Room Air Document 11/01/16 08:00 DH (Rec: 11/01/16 11:27 DH [id number]) Oxygen O2 Sat by Pulse Oximetry (95-100 %) 94 L Oxygen Delivery Method Room Air Document 11/01/16 21:15 [facility] (Rec: 11/01/16 23:17 [id number]) Oxygen Oxygen Delivery Method Room Air Document 11/02/16 20:34 [facility] (Rec: 11/02/16 21:21 C [id number]) Oxygen O2 Sat by Pulse Oximetry (95-100 %) 96 Oxygen Delivery Method Room Air Document 11/03/16 21:00 [id number] (Rec: 11/03/16 23:44 [id number]) Oxygen Oxygen Delivery Method Room Air Document 11/04/16 19:00 [id number] (Rec: 11/04/16 20:01 [id number]) Oxygen Oxygen Delivery Method Room Air Document 11/05/16 09:20 MED (Rec: 11/05/16 13:22 MED [id number]) Oxygen O2 Sat by Pulse Oximetry (95-100 %) 97 Oxygen Delivery Method Room Air PT Acute Daily Note. Start: 11/02/16 10: 17 Freq: Status: Discharge Document 11/03/16 11:30 ADH (Rec: 11/03/16 11:33 ADH [id number]) General/Subjective Date of Admission 11/02/16 Referring Provider Ruth Ann Goyal PT Visit # 2 Diagnosis Influenza due to other identified influenza virus with other respiratory manifestations PT Treatment Diagnosis Weakness Additional PT Treatment Diagnosis/ R26.2 Clarification R27.8 Subjective Pt was in supine this date stating to be feeling bad and requiring ample encouragement to particpate with therapist. Pt agreed to in bed exercises only at this time. Restrictions/Precautions None Objective General Exercise Trunk/Lower Extremity Gluteal Set Supine Hip Abduction/Adduction Unilateral Supine Heel Slides Supine Quad Set Ankle Pumps Regional Exercise Completed Bilateral Lower Extremity Exercise Type Active Range of Motion # Sets 1 Repetitions 10 Exercise Tolerance Good Exercise Comment Pt performed well despite not feeling good this morning. Pt was cued for form on occassion with note of decreased ROM towards final set of exercises . Rehab Education Education Topic Home Exercise Program Teaching Recipient Patient Teaching Method Verbal Response to Teaching Verbalize understanding Education Provided: Details Pt edu on HEP this date. Assessment and Plan Assessment Pt required ample enouragement to participate due to not feeling well this morning. Pt successfully fulfilled all exercises assigned. Disposition at end of Eval/Treatment In bed Bed Alarm Call light/phone within reach Tray table within reach All needs met Plan Progress to EOB if tolerated. Time Started 10:30 Time Ended 10:40 Total Treatment Time (Min) (min) 10 Timed Code Treatment Minutes (min) 8 Estimated PT Needs at Discharge Inpatient Rehab/Swing Bed Charge Sheet Therapeutic Exercise 1 PT Charges/Documentation Finished? Yes Is patient being discharged from PT No today? PT Acute Eval Start: 11/02/16 10: 17 Freq: Status: Discharge Document 11/02/16 10:17 RLM (Rec: 11/02/16 10:24 RL [id number]) Inpatient Rehab Intake Date of Admission 10/30/16 Chief Complaint WEAKNESS PMH/Surgical History Relevant to Rehab pancytopenia, metabolic acidosis, SIRS, hypomagnesium, hypophosphate, Thyroid, HTN,anxiety, Factors/Comorbidities Impacting POC HTN Diagnosis Influenza due to other identified influenza virus with other respiratory manifestations Reason for Referral/Orders A41.9- SIRS PT evaluate develop and implement POC History of falls in past 6 months No History Restrictions/Precautions None History Provided By Patient Spouse Lives With: Spouse Type of Dwelling Single Family Home Number of Floors (Floors) 1 Number of Stairs to Enter (Stairs) 3 Are there handrails? 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 Patient/Family Goal Pt has no plans at this time for rehab needs at discharge is open to rehab Pain Assessment Pain Present Reports Pain Functional Mobility Assessment Bed Mobility Ability Modified Independent Bed Mobility Assistive Devices Bed Rail Bed Transfer Ability Minimum Assistance 1 Person Assist Static Sitting Balance Ability Fair Dynamic Sitting Balance Ability Fair - Static Standing Balance Ability Fair - Dynamic Standing Balance Ability Fair - Ambulation Assistive Devices 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 Pt will benefit from the use of a 2 ww walker Gross Strength/ROM Gross UE Strength 4- Gross UE ROM Within Functional Limits Gross LE Strength 4- Gross LE ROM Within Functional Limits Gross Head/Neck ROM Within Functional Limits Gross Trunk Strength 4- Gross Trunk ROM Within Functional Limits Limitations/Factors of Tone Muscle Tone Description Normal Edema/Skin Integrity Comment Grossly intact Gross Sensorimotor Gross Sensation No Deficit Noted Sensation Response to Light Touch Intact/Normal Stimulus Sensation Response to Kinesthesia ( Intact/Normal Movement) Stimulus Gross Coordination No Deficit Noted Fine Motor Coordination No Deficit Noted Coordination Assessment Gross Coordination No Deficit Noted Cognition/Visual Assessment Level of Alertness Alert Able to Remain Focused on Simple Task Patient Orientation Person Place Name Date of Mental Status Lethargic Safety Awareness Patient Is Aware of Their Safety Patient Is Aware of Others Safety Situational Awareness Understands Safety Issues Attention to Task Unable to Organize Plans Unable to Remember Details Visual Acuity No Deficits Noted Vision Comment reading glasses Visual Spatial Deficit No Deficits Noted Hearing Ability Normal Ability to Follow Directions Follows Complex Comprehension Ability Understands Concepts Patient Behavior Appropriate Cooperative Fatigued Speech Pattern Clear Appropriate Eye Contact Maintains Eye Contact Problem Solving Ability Able To Solve Simple Problems Memory Description Recent Intact Panel Instrument 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 AM-PAC PT Basic Mobility Raw Score 13 AM-PAC CMS 0-100% Impaired Score 52 Problems/Impairments/Functional Decreased Functional Endurance Limitation Decreased Standing Tolerance Impaired Gait Decreased Strength Assessment Pt evaluation is completed this date. Pt demonstrates the need for skilled PT to address the following areas: global strengthening, gait, balance, transfers and bed mobility. PT recommends for this patient to discharge to in pt swingbed/rehab to address her loss of safe functional (I) mobility. Rehab Potential Good Disposition at end of Eval/Treatment In bed Lines intact Family in room Call light/phone within reach Tray table within reach All needs met PT Treatment Diagnosis Weakness Additional PT Treatment Diagnosis/ R26.2 Clarification R27.8 Planned Interventions Therapeutic Exercise Therapeutic Activity Gait Training Neuromuscular Reeducation PT Treatment Frequency Once a Day, Mon-Fri Duration of Treatment 10 Goals Determined With Patient/Family Yes Estimated PT Needs at Discharge Inpatient Rehab/Swing Bed Pt. will perform all bed mobility with__ Modified Independent ___to increase functional indendence. Pt. will perform all transfers with Supervision to increase safe functional mobility and independence. Pt. will demonstrate static/dynamic Good balance during all functional activities allowing increased safety awareness. Pt. will demonstrate gait feet 75ft w/ ww no LOB no c/o with assist using to fatigue SBA x 1 increase functional mobility, strength, and/or endurance. Pt. will participate in of 15 minutes continuous activity allowing increased endurance while completing ADLs improving quality of life. Pt. will verbally recall precautions Walker Safety/Assistive Device without cues for increased safety & compliance in discharge environment. Pt. will perform therapeutic exercise Minimal Cues with to improve functional ROM, strength, and endurance during all functional activities. Physical Therapy STG's Pt to increase AM-PAC score to an 19 demonstrating improved safe functional mobility. Supervising Therapist Shantell Blackburnal and Re-Bereal Charges Evaluation Time: Minutes with Patient 20 Physical Therapy Evaluation Low Yes Complexity PT Charges/Documentation Finished? No Is patient being discharged from PT No today? Please Select All That Apply To Today's G-godes Documented Visit Financial Class MCRADV Secondary Payer Y PT G-code Therapy Billing Start: 11/02/16 10: 17 Freq: Status: Discharge Document 11/02/16 10:17 RL (Rec: 11/02/16 10:24 [facility] [id number]) PT G-codes G-code Required For This Visit Yes PT Current Status Mobility PT Current Status Modifier At least 20% but less than 40% impaired, limited or restricted PT Goal Status Mobility PT Goal Status Modifer At least 1% but less than 20% impaired, limited or restricted Patient Belongings Start: 10/30/16 23: 59 Freq: .ONCE Status: Complete Document 10/31/16 00:57 [id number] (Rec: 10/31/16 01:07 [id number]) Patient Belongings Belongings With Patient on Admission Yes At Bedside Patient Belongings Pants Shirt Shoes Socks Belongings Comment watch Patient Rounding Start: 10/30/16 23: 59 Freq: Q1H Status: Discharge Document 10/31/16 00:30 [id number] (Rec: 10/31/16 01:53 [id number]) Hourly Rounding Hourly Rounding Checked for Patient Positioning Patient Personal Items Placed Within Reach Checked Patient Pain Level Hourly Rounding Completed Yes Patient Awake Equipment in Use Specialty Bed Safety Call Light Within Reach Bed Position Low Fall Precautions Phone Within Reach Bed Brake On Side Rails Up X2 Are the Floors Free From Trip Hazards? Yes Is the Room Free From Clutter? Yes Turn and Postion Bedrest No Turn Q 2HR No Patient Position Back Positioning Aides Pillows Document 10/31/16 00:49 LMO (Rec: 10/31/16 00:56 LMO [id number]) Hourly Rounding Hourly Rounding Checked for Patient Positioning Patient Personal Items Placed Within Reach Hourly Rounding Completed Yes Patient Awake Is family present? No Safety Call Light Within Reach Bed Position Low Phone Within Reach Bed Brake On Side Rails Up X2 Are the Floors Free From Trip Hazards? Yes Is the Room Free From Clutter? Yes Turn and Postion Bedrest No Turn Q 2HR No Patient Position Back Document 10/31/16 03:54 LMO (Rec: 10/31/16 03:56 LMO [id number]) Hourly Rounding Hourly Rounding Patient Helped to Bathroom or Assisted with Bedpan or Urinal Checked Patient Pain Level Hourly Rounding Completed Yes Patient Awake Is family present? No Safety Call Light Within Reach Bed Position Low Phone Within Reach Bed Brake On Side Rails Up X2 Are the Floors Free From Trip Hazards? Yes Is the Room Free From Clutter? Yes Precautions Droplet Precautions Turn and Postion Bedrest No Turn Q 2HR No Patient Position Back Document 10/31/16 05:33 LMO (Rec: 10/31/16 05:34 LMO [id number]) Hourly Rounding Hourly Rounding Checked for Patient Positioning Patient Personal Items Placed Within Reach Hourly Rounding Completed Yes Patient Awake Is family present? No Safety Call Light Within Reach Bed Position Low Phone Within Reach Bed Brake On Side Rails Up X2 Are the Floors Free From Trip Hazards? Yes Is the Room Free From Clutter? Yes Turn and Postion Bedrest No Turn Q 2HR No Patient Position Back Document 10/31/16 08:29 [id number] (Rec: 10/31/16 08:34 [id number]) Hourly Rounding Hourly Rounding Checked for Patient Positioning Patient Helped to Bathroom or Assisted with Bedpan or Urinal Patient Personal Items Placed Within Reach Checked Patient Pain Level Hourly Rounding Completed Yes Patient Awake Is family present? No Equipment in Use Specialty Bed Safety Call Light Within Reach Bed Position Low Fall Precautions Phone Within Reach Bed Brake On Side Rails Up X2 Are the Floors Free From Trip Hazards? Yes Is the Room Free From Clutter? Yes Precautions Droplet Precautions Turn and Postion Bedrest No Turn Q 2HR No Patient Position Back Document 10/31/16 10:39 [id number] (Rec: 10/31/16 10:39 [id number]) Hourly Rounding Hourly Rounding Checked for Patient Positioning Patient Personal Items Placed Within Reach Checked Patient Pain Level Hourly Rounding Completed Yes Patient Sleeping Is family present? No Equipment in Use Specialty Bed Safety Call Light Within Reach Bed Position Low Fall Precautions Phone Within Reach Bed Brake On Side Rails Up X2 Are the Floors Free From Trip Hazards? Yes Is the Room Free From Clutter? Yes Precautions Droplet Precautions Turn and Postion Bedrest No Turn Q 2HR No Patient Position Back Document 10/31/16 12:00 LEB (Rec: 10/31/16 12:26 LEB [id number]) Hourly Rounding Hourly Rounding Checked for Patient Positioning Patient Helped to Bathroom or Assisted with Bedpan or Urinal Patient Personal Items Placed Within Reach Hourly Rounding Completed Yes Patient Awake Is family present? Yes Safety Call Light Within Reach Bed Position Low Phone Within Reach Bed Brake On Side Rails Up X2 Are the Floors Free From Trip Hazards? Yes Is the Room Free From Clutter? Yes Precautions Droplet Precautions Turn and Postion Bedrest No Turn Q 2HR No Document 10/31/16 13:42 [id number] (Rec: 10/31/16 13:42 [id number]) Hourly Rounding Hourly Rounding Checked for Patient Positioning Patient Personal Items Placed Within Reach Checked Patient Pain Level Hourly Rounding Completed Yes Patient Awake Is family present? Yes Equipment in Use Specialty Bed Safety Call Light Within Reach Bed Position Low Fall Precautions Phone Within Reach Bed Brake On Side Rails Up X2 Are the Floors Free From Trip Hazards? Yes Is the Room Free From Clutter? Yes Precautions Droplet Precautions Turn and Postion Bedrest No Turn Q 2HR No Patient Position Back Document 10/31/16 16:51 LEB (Rec: 10/31/16 16:52 LEB [id number]) Hourly Rounding Hourly Rounding Checked for Patient Positioning Patient Personal Items Placed Within Reach Hourly Rounding Completed Yes Patient Awake Is family present? No Safety Call Light Within Reach Bed Position Low Phone Within Reach Bed Brake On Side Rails Up X2 Are the Floors Free From Trip Hazards? Yes Is the Room Free From Clutter? Yes Turn and Postion Bedrest No Turn Q 2HR No Document 10/31/16 17:53 [id number] (Rec: 10/31/16 18:06 [id number]) Hourly Rounding Hourly Rounding Checked for Patient Positioning Patient Personal Items Placed Within Reach Checked Patient Pain Level Hourly Rounding Completed Yes Patient Awake Is family present? No Equipment in Use Specialty Bed Safety Call Light Within Reach Bed Position Low Fall Precautions Phone Within Reach Bed Brake On Side Rails Up X2 Are the Floors Free From Trip Hazards? Yes Is the Room Free From Clutter? Yes Precautions Droplet Precautions Turn and Postion Bedrest No Turn Q 2HR No Patient Position Sitting on Side of Bed Document 10/31/16 18:00 [id number] (Rec: 10/31/16 18:43 [id number]) Hourly Rounding Hourly Rounding Checked for Patient Positioning Patient Personal Items Placed Within Reach Checked Patient Pain Level Hourly Rounding Completed Yes Patient Awake Is family present? Yes Equipment in Use Specialty Bed Safety Call Light Within Reach Bed Position Low Fall Precautions Phone Within Reach Bed Brake On Side Rails Up X2 Are the Floors Free From Trip Hazards? Yes Is the Room Free From Clutter? Yes Precautions Droplet Precautions Turn and Postion Bedrest No Turn Q 2HR No Patient Position Sitting on Side of Bed Document 10/31/16 19:41 [facility] (Rec: 10/31/16 19:47 [id number]) Hourly Rounding Hourly Rounding Checked for Patient Positioning Patient Personal Items Placed Within Reach Hourly Rounding Completed Yes Patient Awake Is family present? No Safety Call Light Within Reach Bed Position Low Phone Within Reach Bed Brake On Side Rails Up X2 Are the Floors Free From Trip Hazards? Yes Is the Room Free From Clutter? Yes Precautions Droplet Precautions Turn and Postion Bedrest No Turn Q 2HR No Document 10/31/16 20:45 [id number] (Rec: 10/31/16 23:27 [id number]) Hourly Rounding Hourly Rounding Checked for Patient Positioning Patient Personal Items Placed Within Reach Checked Patient Pain Level Hourly Rounding Completed Yes Patient Awake Is family present? No Equipment in Use Specialty Bed Safety Call Light Within Reach Bed Position Low Fall Precautions Phone Within Reach Bed Brake On Side Rails Up X2 Are the Floors Free From Trip Hazards? Yes Is the Room Free From Clutter? Yes Precautions Droplet Precautions Turn and Postion Bedrest No Turn Q 2HR No Patient Position Sitting up in Bed Document 10/31/16 23:25 [facility] (Rec: 11/01/16 01:35 [id number]) Hourly Rounding Hourly Rounding Checked for Patient Positioning Patient Personal Items Placed Within Reach Hourly Rounding Completed Yes Patient Sleeping Is family present? No Safety Call Light Within Reach Bed Position Low Phone Within Reach Bed Brake On Side Rails Up X2 Are the Floors Free From Trip Hazards? Yes Is the Room Free From Clutter? Yes Precautions Droplet Precautions Turn and Postion Bedrest No Turn Q 2HR No Patient Position Right Side Document 11/01/16 03:20 [facility] (Rec: 11/01/16 03:58 [facility] [id number]) Hourly Rounding Hourly Rounding Checked for Patient Positioning Patient Personal Items Placed Within Reach Checked Patient Pain Level Hourly Rounding Completed Yes Patient Awake Is family present? No Safety Call Light Within Reach Bed Position Low Phone Within Reach Bed Brake On Side Rails Up X2 Are the Floors Free From Trip Hazards? Yes Is the Room Free From Clutter? Yes Precautions Droplet Precautions 11/01/16 03:54 Nurse Note by Rasta Kumar Patient stated she had heard people being loud and noisy all night right across the [place]. This SALES DEVELOPMENT MANAGER told here it may have been up the hallway and apologize. The patient stated no it was that room right across the [place] there. Then stated her was here and had went to the restroom. This SALES DEVELOPMENT MANAGER let the patient know that her was not in the room all night and at the time it was only her and I in the room. Initialized on 11/01/16 03:54 - END OF NOTE Turn and Postion Bedrest No Turn Q 2HR No Patient Position Sitting up in Bed Document 11/01/16 06:11 [id number] (Rec: 11/01/16 06:14 [id number]) Hourly Rounding Hourly Rounding Checked for Patient Positioning Patient Personal Items Placed Within Reach Checked Patient Pain Level Hourly Rounding Completed Yes Patient Awake Is family present? No Equipment in Use Specialty Bed Safety Call Light Within Reach Bed Position Low Phone Within Reach Bed Brake On Side Rails Up X2 Are the Floors Free From Trip Hazards? Yes Is the Room Free From Clutter? Yes Precautions Droplet Precautions Turn and Postion Bedrest No Turn Q 2HR No Patient Position Sitting up in Bed Document 11/01/16 08:00 (Rec: 11/01/16 11:27 [id number] Hourly Rounding Hourly Rounding Checked for Patient Positioning Patient Personal Items Placed Within Reach Checked Patient Pain Level Hourly Rounding Completed Yes Patient Awake Is family present? No Equipment in Use Specialty Bed Safety Call Light Within Reach Bed Position Low Phone Within Reach Bed Brake On Side Rails Up X2 Are the Floors Free From Trip Hazards? Yes Is the Room Free From Clutter? Yes Precautions Droplet Precautions Turn and Postion Bedrest No Turn Q 2HR No Patient Position Back Document 11/01/16 08:56 MVJ (Rec: 11/01/16 08:57 MVJ [id number]) Hourly Rounding Hourly Rounding Checked for Patient Positioning Hourly Rounding Completed Yes Patient Awake Safety Call Light Within Reach Are the Floors Free From Trip Hazards? Yes Is the Room Free From Clutter? Yes Turn and Postion Bedrest No Turn Q 2HR No Document 11/01/16 10:08 [facility] (Rec: 11/01/16 10:13 [id number]) Hourly Rounding Hourly Rounding Checked for Patient Positioning Patient Personal Items Placed Within Reach Hourly Rounding Completed Yes Patient Awake Is family present? No Safety Call Light Within Reach Bed Position Low Phone Within Reach Bed Brake On Side Rails Up X2 Are the Floors Free From Trip Hazards? Yes Is the Room Free From Clutter? Yes Precautions Contact Precautions Turn and Postion Bedrest No Turn Q 2HR No Patient Position Back Document 11/01/16 13:20 MV (Rec: 11/01/16 13:20 [id number]) Hourly Rounding Hourly Rounding Checked for Patient Positioning Hourly Rounding Completed Yes Patient Awake Safety Call Light Within Reach Are the Floors Free From Trip Hazards? Yes Is the Room Free From Clutter? Yes Turn and Postion Bedrest No Turn Q 2HR No Document 11/01/16 14:00 DH (Rec: 11/01/16 14:41 [id number] Hourly Rounding Hourly Rounding Checked for Patient Positioning Patient Personal Items Placed Within Reach Checked Patient Pain Level Hourly Rounding Completed Yes Patient Awake Equipment in Use Specialty Bed Safety Call Light Within Reach Bed Position Low Phone Within Reach Bed Brake On Side Rails Up X2 Are the Floors Free From Trip Hazards? Yes Is the Room Free From Clutter? Yes Turn and Postion Bedrest No Turn Q 2HR No Document 11/01/16 15:00 DH (Rec: 11/01/16 15:27 [id number] Hourly Rounding Hourly Rounding Checked for Patient Positioning Patient Personal Items Placed Within Reach Checked Patient Pain Level Hourly Rounding Completed Yes Patient Awake Equipment in Use Specialty Bed Safety Call Light Within Reach Bed Position Low Phone Within Reach Bed Brake On Side Rails Up X2 Are the Floors Free From Trip Hazards? Yes Is the Room Free From Clutter? Yes Precautions Contact Precautions Turn and Postion Bedrest No Turn Q 2HR No Patient Position Back Document 11/01/16 16:00 (Rec: 11/01/16 19:13 [id number]) Hourly Rounding Hourly Rounding Checked for Patient Positioning Patient Personal Items Placed Within Reach Checked Patient Pain Level Hourly Rounding Completed Yes Patient Awake Is family present? Yes Equipment in Use Specialty Bed Safety Call Light Within Reach Bed Position Low Fall Precautions Phone Within Reach Bed Brake On Side Rails Up X2 Are the Floors Free From Trip Hazards? Yes Is the Room Free From Clutter? Yes Turn and Postion Bedrest No Turn Q 2HR No Patient Position Back Document 11/01/16 19:00 [facility] (Rec: 11/01/16 23:18 [id number][facility] Hourly Rounding Hourly Rounding Checked for Patient Positioning Patient Personal Items Placed Within Reach Checked Patient Pain Level Hourly Rounding Completed Yes Patient Awake Is family present? No Equipment in Use Specialty Bed Safety Call Light Within Reach Bed Position Low Phone Within Reach Bed Brake On Side Rails Up X2 Are the Floors Free From Trip Hazards? Yes Is the Room Free From Clutter? Yes Precautions Droplet Precautions Turn and Postion Bedrest No Turn Q 2HR No Patient Position Back Document 11/01/16 19:18 [facility] (Rec: 11/01/16 19:24 [id number] Hourly Rounding Hourly Rounding Checked for Patient Positioning Patient Personal Items Placed Within Reach Checked Patient Pain Level Hourly Rounding Completed Yes Patient Awake Is family present? No Safety Call Light Within Reach Bed Position Low Phone Within Reach Bed Brake On Side Rails Up X2 Are the Floors Free From Trip Hazards? Yes Is the Room Free From Clutter? Yes Precautions Droplet Precautions Turn and Postion Bedrest No Turn Q 2HR No Patient Position Back Document 11/01/16 21:00 [facility] (Rec: 11/01/16 23:18 [facility] [id number]) Hourly Rounding Hourly Rounding Checked for Patient Positioning Patient Personal Items Placed Within Reach Checked Patient Pain Level Hourly Rounding Completed Yes Patient Awake Is family present? No Equipment in Use Specialty Bed Safety Call Light Within Reach Bed Position Low Phone Within Reach Bed Brake On Side Rails Up X2 Are the Floors Free From Trip Hazards? Yes Is the Room Free From Clutter? Yes Precautions Droplet Precautions Turn and Postion Bedrest No Turn Q 2HR No Patient Position Back Document 11/01/16 23:00 [facility] (Rec: 11/01/16 23:18 [facility]-[id number]) Hourly Rounding Hourly Rounding Checked for Patient Positioning Patient Personal Items Placed Within Reach Checked Patient Pain Level Hourly Rounding Completed Yes Patient Awake Is family present? No Equipment in Use Specialty Bed Safety Call Light Within Reach Bed Position Low Phone Within Reach Bed Brake On Side Rails Up X2 Are the Floors Free From Trip Hazards? Yes Is the Room Free From Clutter? Yes Precautions Droplet Precautions Turn and Postion Bedrest No Turn Q 2HR No Patient Position Back Document 11/02/16 00:52 [facility] (Rec: 11/02/16 00:53 [id number]) Hourly Rounding Hourly Rounding Checked for Patient Positioning Patient Personal Items Placed Within Reach Checked Patient Pain Level Hourly Rounding Completed Yes Patient Resting With Eyes Closed Is family present? No Safety Call Light Within Reach Bed Position Low Phone Within Reach Bed Brake On Side Rails Up X2 Are the Floors Free From Trip Hazards? Yes Is the Room Free From Clutter? Yes Precautions Droplet Precautions Turn and Postion Bedrest No Turn Q 2HR No Patient Position Back Document 11/02/16 01:00 [facility] (Rec: 11/02/16 05:37 [id number]) Hourly Rounding Hourly Rounding Checked for Patient Positioning Patient Personal Items Placed Within Reach Hourly Rounding Completed Yes Patient Sleeping Is family present? No Safety Call Light Within Reach Bed Position Low Phone Within Reach Bed Brake On Side Rails Up X2 Are the Floors Free From Trip Hazards? Yes Is the Room Free From Clutter? Yes Turn and Postion Bedrest No Turn Q 2HR No Patient Position Back Document 11/02/16 03:00 [facility] (Rec: 11/02/16 06:07 [facility] [id number]) Hourly Rounding Hourly Rounding Checked for Patient Positioning Patient Personal Items Placed Within Reach Hourly Rounding Completed Yes Patient Sleeping Is family present? No Safety Call Light Within Reach Bed Position Low Phone Within Reach Bed Brake On Side Rails Up X2 Are the Floors Free From Trip Hazards? Yes Is the Room Free From Clutter? Yes Turn and Postion Bedrest No Turn Q 2HR No Patient Position Back Document 11/02/16 04:25 [facility] (Rec: 11/02/16 05:37 [facility] [id number]) Hourly Rounding Hourly Rounding Checked for Patient Positioning Patient Personal Items Placed Within Reach Checked Patient Pain Level Hourly Rounding Completed Yes Patient Resting With Eyes Closed Is family present? No Safety Call Light Within Reach Bed Position Low Phone Within Reach Bed Brake On Side Rails Up X2 Are the Floors Free From Trip Hazards? Yes Is the Room Free From Clutter? Yes Turn and Postion Bedrest No Turn Q 2HR No Patient Position Back Document 11/02/16 05:00 [facility] (Rec: 11/02/16 06:21 [facility] [id number]) Hourly Rounding Hourly Rounding Checked for Patient Positioning Patient Personal Items Placed Within Reach Checked Patient Pain Level Hourly Rounding Completed Yes Patient Awake Is family present? No Equipment in Use Specialty [facility] Safety Call Light Within Reach Bed Position Low Phone Within Reach Bed Brake On Side Rails Up X2 Are the Floors Free From Trip Hazards? Yes Is the Room Free From Clutter? Yes Precautions Droplet Precautions Turn and Postion Bedrest No Turn Q 2HR No Patient Position Back Document 11/02/16 07:05 [facility] (Rec: 11/02/16 08:18 [facility] [id number]) Hourly Rounding Hourly Rounding Checked for Patient Positioning Patient Personal Items Placed Within Reach Checked Patient Pain Level Hourly Rounding Completed Yes Patient Awake Is family present? No Equipment in Use Specialty Bed Safety Call Light Within Reach Bed Position Low Phone Within Reach Bed Brake On Side Rails Up X2 Are the Floors Free From Trip Hazards? Yes Is the Room Free From Clutter? Yes Precautions Droplet Precautions Turn and Postion Bedrest No Turn Q 2HR No Patient Position Back Head of Bed Position (degrees) 25 Document 11/02/16 07:35 [id number] (Rec: 11/02/16 07:36 [id number]) Hourly Rounding Hourly Rounding Checked for Patient Positioning Patient Personal Items Placed Within Reach Hourly Rounding Completed Yes Patient Awake Is family present? No Safety Call Light Within Reach Bed Position Low Phone Within Reach Bed Brake On Side Rails Up X2 Are the Floors Free From Trip Hazards? Yes Is the Room Free From Clutter? Yes Turn and Postion Bedrest No Turn Q 2HR No Patient Position Back Document 11/02/16 08:20 WDT (Rec: 11/02/16 16:39 WDT [id number]) Hourly Rounding Hourly Rounding Checked for Patient Positioning Patient Personal Items Placed Within Reach Checked Patient Pain Level Hourly Rounding Completed Yes Patient Awake Is family present? No Equipment in Use Specialty Bed Safety Call Light Within Reach Bed Position Low Fall Precautions Phone Within Reach Bed Brake On Side Rails Up X2 Are the Floors Free From Trip Hazards? Yes Is the Room Free From Clutter? Yes Precautions Droplet Precautions Turn and Postion Bedrest No Turn Q 2HR No Patient Position Back Head of Bed Position (degrees) 25 Document 11/02/16 09:20 WDT (Rec: 11/02/16 14:45 T [id number]) Hourly Rounding Hourly Rounding Checked for Patient Positioning Patient Personal Items Placed Within Reach Checked Patient Pain Level Hourly Rounding Completed Yes Patient Awake Is family present? No Equipment in Use Specialty Bed Safety Call Light Within Reach Bed Position Low Fall Precautions Phone Within Reach Bed Brake On Side Rails Up X2 Are the Floors Free From Trip Hazards? Yes Is the Room Free From Clutter? Yes Precautions Droplet Precautions Turn and Postion Bedrest No Turn Q 2HR No Patient Position Back Head of Bed Position (degrees) 25 Document 11/02/16 11:20 WDT (Rec: 11/02/16 14:48 T [id number]) Hourly Rounding Hourly Rounding Checked for Patient Positioning Patient Personal Items Placed Within Reach Checked Patient Pain Level Hourly Rounding Completed Yes Patient Awake Is family present? Yes Equipment in Use Specialty Bed Safety Call Light Within Reach Bed Position Low Fall Precautions Phone Within Reach Bed Brake On Side Rails Up X2 Are the Floors Free From Trip Hazards? Yes Is the Room Free From Clutter? Yes Precautions Droplet Precautions Turn and Postion Bedrest No Turn Q 2HR No Patient Position Back Head of Bed Position (degrees) 35 Document 11/02/16 11:52 [id number] (Rec: 11/02/16 11:53 [id number]) Hourly Rounding Hourly Rounding Checked for Patient Positioning Patient Personal Items Placed Within Reach Hourly Rounding Completed Yes Patient Awake Is family present? Yes Safety Call Light Within Reach Bed Position Low Fall Precautions Phone Within Reach Bed Brake On Side Rails Up X2 Are the Floors Free From Trip Hazards? Yes Is the Room Free From Clutter? Yes Precautions Droplet Precautions Turn and Postion Bedrest No Turn Q 2HR No Patient Position Back Document 11/02/16 13:20 WDT (Rec: 11/02/16 14:50 WDT [id number]) Hourly Rounding Hourly Rounding Checked for Patient Positioning Patient Personal Items Placed Within Reach Checked Patient Pain Level Hourly Rounding Completed Yes Patient Awake Is family present? Yes Equipment in Use Specialty Bed Safety Call Light Within Reach Bed Position Low Fall Precautions Phone Within Reach Bed Brake On Side Rails Up X2 Are the Floors Free From Trip Hazards? Yes Is the Room Free From Clutter? Yes Precautions Droplet Precautions Turn and Postion Bedrest No Turn Q 2HR No Patient Position Back Head of Bed Position (degrees) 30 Document 11/02/16 15:20 WDT (Rec: 11/02/16 18:32 WDT [id number]) Hourly Rounding Hourly Rounding Checked for Patient Positioning Patient Personal Items Placed Within Reach Checked Patient Pain Level Hourly Rounding Completed Yes Patient Awake Is family present? Yes Equipment in Use Specialty Bed Safety Call Light Within Reach Bed Position Low Fall Precautions Phone Within Reach Bed Brake On Side Rails Up X2 Are the Floors Free From Trip Hazards? Yes Is the Room Free From Clutter? Yes Precautions Droplet Precautions Turn and Postion Bedrest No Turn Q 2HR No Patient Position Back Head of Bed Position (degrees) 30 Document 11/02/16 15:51 [id number] (Rec: 11/02/16 15:52 [id number]) Hourly Rounding Hourly Rounding Checked for Patient Positioning Patient Personal Items Placed Within Reach Hourly Rounding Completed Yes Patient Awake Is family present? Yes Safety Call Light Within Reach Bed Position Low Fall Precautions Phone Within Reach Bed Brake On Side Rails Up X2 Are the Floors Free From Trip Hazards? Yes Is the Room Free From Clutter? Yes Precautions Droplet Precautions Turn and Postion Bedrest No Turn Q 2HR No Patient Position Back Document 11/02/16 17:20 WDT (Rec: 11/02/16 18:33 WDT [id number]) Hourly Rounding Hourly Rounding Checked for Patient Positioning Patient Personal Items Placed Within Reach Checked Patient Pain Level Hourly Rounding Completed Yes Patient Awake Is family present? Yes Equipment in Use Specialty Bed Safety Call Light Within Reach Bed Position Low Fall Precautions Phone Within Reach Bed Brake On Side Rails Up X2 Are the Floors Free From Trip Hazards? Yes Is the Room Free From Clutter? Yes Precautions Droplet Precautions Turn and Postion Bedrest No Turn Q 2HR No Patient Position Back Head of Bed Position (degrees) 35 Document 11/02/16 19:30 [facility] [place] (Rec: 11/02/16 19:46 [id number]) Hourly Rounding Hourly Rounding Checked for Patient Positioning Patient Personal Items Placed Within Reach Checked Patient Pain Level Hourly Rounding Completed Yes Patient Awake Is family present? No Safety Call Light Within Reach Bed Position Low Fall Precautions Phone Within Reach Bed Brake On Side Rails Up X2 Are the Floors Free From Trip Hazards? Yes Is the Room Free From Clutter? Yes Precautions Droplet Precautions Turn and Postion Bedrest No Turn Q 2HR No Patient Position Sitting on Side of Bed Document 11/02/16 20:34 [facility] [place] (Rec: 11/02/16 21:21 [id number]) Hourly Rounding Hourly Rounding Checked for Patient Positioning Patient Personal Items Placed Within Reach Checked Patient Pain Level Hourly Rounding Completed Yes Patient Awake Is family present? No Equipment in Use Specialty Bed Safety Call Light Within Reach Bed Position Low Fall Precautions Phone Within Reach Bed Brake On Side Rails Up X2 Are the Floors Free From Trip Hazards? Yes Is the Room Free From Clutter? Yes Precautions Droplet Precautions Turn and Postion Bedrest No Turn Q 2HR No Patient Position Sitting on Side of Bed Document 11/02/16 23:25 [facility] [place] (Rec: 11/02/16 23:26 [id number]) Hourly Rounding Hourly Rounding Checked for Patient Positioning Patient Personal Items Placed Within Reach Checked Patient Pain Level Hourly Rounding Completed Yes Patient Awake Is family present? No Safety Call Light Within Reach Bed Position Low Fall Precautions Phone Within Reach Bed Brake On Side Rails Up X2 Are the Floors Free From Trip Hazards? Yes Is the Room Free From Clutter? Yes Precautions Droplet Precautions Turn and Postion Bedrest No Turn Q 2HR No Patient Position Back 11/02/16 23:25 Nurse Note by Rasta Kumar Battery was changed in her tele box Initialized on 11/02/16 23:25 - END OF NOTE Document 02/24/17 00:35 [facility] [place] (Rec: 11/03/16 00:35 [id number] Hourly Rounding Hourly Rounding Checked for Patient Positioning Patient Personal Items Placed Within Reach Checked Patient Pain Level Hourly Rounding Completed Yes Patient Awake Is family present? No Equipment in Use Specialty Bed Safety Call Light Within Reach Bed Position Low Fall Precautions Phone Within Reach Bed Brake On Side Rails Up X2 Are the Floors Free From Trip Hazards? Yes Is the Room Free From Clutter? Yes Precautions Droplet Precautions Turn and Postion Bedrest No Turn Q 2HR No Patient Position Back Document 11/03/16 02:34 [facility] [place] (Rec: 11/03/16 02:36 [facility] [place] [id number]) Hourly Rounding Hourly Rounding Checked for Patient Positioning Patient Personal Items Placed Within Reach Checked Patient Pain Level Hourly Rounding Completed Yes Patient Awake Is family present? No Equipment in Use Specialty Bed Safety Call Light Within Reach Bed Position Low Fall Precautions Phone Within Reach Bed Brake On Side Rails Up X2 Are the Floors Free From Trip Hazards? Yes Is the Room Free From Clutter? Yes Precautions Droplet Precautions Turn and Postion Bedrest No Turn Q 2HR No Patient Position Back Document 11/03/16 03:23 [facility] [place] (Rec: 11/03/16 03:34 [facility] [place] [id number]) Hourly Rounding Hourly Rounding Checked for Patient Positioning Patient Personal Items Placed Within Reach Hourly Rounding Completed Yes Patient Sleeping Is family present? No Safety Call Light Within Reach Bed Position Low Fall Precautions Phone Within Reach Bed Brake On Side Rails Up X2 Are the Floors Free From Trip Hazards? Yes Is the Room Free From Clutter? Yes Precautions Droplet Precautions Turn and Postion Bedrest No Turn Q 2HR No Patient Position Back Document 11/03/16 05:11 [facility] [place] (Rec: 11/03/16 05:11 [facility] [place] [id number]) Hourly Rounding Hourly Rounding Checked for Patient Positioning Patient Personal Items Placed Within Reach Hourly Rounding Completed Yes Patient Sleeping Is family present? No Equipment in Use Specialty Bed Safety Call Light Within Reach Bed Position Low Fall Precautions Phone Within Reach Bed Brake On Side Rails Up X2 Are the Floors Free From Trip Hazards? Yes Is the Room Free From Clutter? Yes Precautions Droplet Precautions Turn and Postion Bedrest No Turn Q 2HR No Patient Position Back Document 11/03/16 07:30 [facility] (Rec: 11/03/16 07:31 [facility] [id number]) Hourly Rounding Hourly Rounding Checked for Patient Positioning Patient Personal Items Placed Within Reach Hourly Rounding Completed Yes Patient Awake Is family present? No Safety Call Light Within Reach Bed Position Low Phone Within Reach Bed Brake On Side Rails Up X2 Are the Floors Free From Trip Hazards? Yes Is the Room Free From Clutter? Yes Precautions Droplet Precautions Turn and Postion Bedrest No Turn Q 2HR No Document 11/03/16 09:00 [facility] (Rec: 11/03/16 10:47 J[facility] [id number]) Hourly Rounding Hourly Rounding Checked for Patient Positioning Patient Personal Items Placed Within Reach Checked Patient Pain Level Hourly Rounding Completed Yes Patient Awake Is family present? No Equipment in Use Specialty Bed Safety Call Light Within Reach Bed Position Low Phone Within Reach Bed Brake On Side Rails Up X2 Are the Floors Free From Trip Hazards? Yes Is the Room Free From Clutter? Yes Precautions Droplet Precautions Turn and Postion Bedrest No Turn Q 2HR No Patient Position Back Document 11/03/16 11:56 JLR (Rec: 11/03/16 11:57 J[facility] [id number]) Hourly Rounding Hourly Rounding Checked for Patient Positioning Patient Personal Items Placed Within Reach Checked Patient Pain Level Hourly Rounding Completed Yes Patient Awake Is family present? No Safety Call Light Within Reach Bed Position Low Phone Within Reach Bed Brake On Side Rails Up X2 Are the Floors Free From Trip Hazards? Yes Is the Room Free From Clutter? Yes Precautions Droplet Precautions Neutropenic Precuations Turn and Postion Bedrest No Turn Q 2HR No Patient Position Sitting up in Bed Document 11/03/16 12:41 [facility] (Rec: 11/03/16 12:42 [facility] [id number]) Hourly Rounding Hourly Rounding Checked for Patient Positioning Patient Personal Items Placed Within Reach Hourly Rounding Completed Yes Patient Awake Is family present? Yes Safety Call Light Within Reach Bed Position Low Bed Exit Alarm Fall Precautions Phone Within Reach Bed Brake On Side Rails Up X2 Are the Floors Free From Trip Hazards? Yes Is the Room Free From Clutter? Yes Turn and Postion Bedrest No Turn Q 2HR No Document 11/03/16 13:00 JLR (Rec: 11/03/16 14:14 JLR [id number]) Hourly Rounding Hourly Rounding Checked for Patient Positioning Patient Personal Items Placed Within Reach Checked Patient Pain Level Hourly Rounding Completed Yes Patient Awake Is family present? Yes Equipment in Use Specialty Bed Safety Call Light Within Reach Bed Position Low Bed Exit Alarm Fall Precautions Phone Within Reach Bed Brake On Side Rails Up X2 Are the Floors Free From Trip Hazards? Yes Is the Room Free From Clutter? Yes Precautions Droplet Precautions Neutropenic Precuations Turn and Postion Bedrest No Turn Q 2HR No Patient Position Sitting up in Bed Document 11/03/16 15:00 JLR (Rec: 11/03/16 18:31 R [id number]) Hourly Rounding Hourly Rounding Checked for Patient Positioning Patient Personal Items Placed Within Reach Checked Patient Pain Level Hourly Rounding Completed Yes Patient Awake Is family present? Yes Safety Call Light Within Reach Bed Position Low Bed Exit Alarm Fall Precautions Phone Within Reach Bed Brake On Side Rails Up X2 Are the Floors Free From Trip Hazards? Yes Is the Room Free From Clutter? Yes Precautions Droplet Precautions Neutropenic Precuations Turn and Postion Bedrest No Turn Q 2HR No Patient Position Sitting up in Bed Document 11/03/16 17:00 JLR (Rec: 11/03/16 18:31 R [id number]) Hourly Rounding Hourly Rounding Checked for Patient Positioning Patient Personal Items Placed Within Reach Checked Patient Pain Level Hourly Rounding Completed Yes Patient Awake Is family present? Yes Equipment in Use Specialty Bed Safety Call Light Within Reach Bed Position Low Bed Exit Alarm Fall Precautions Phone Within Reach Bed Brake On Side Rails Up X2 Are the Floors Free From Trip Hazards? Yes Is the Room Free From Clutter? Yes Precautions Droplet Precautions Neutropenic Precuations Turn and Postion Bedrest No Turn Q 2HR No Patient Position Sitting up in Bed Document 11/03/16 19:16 LMO (Rec: 11/03/16 19:25 LMO [id number]) Hourly Rounding Hourly Rounding Checked for Patient Positioning Patient Personal Items Placed Within Reach Hourly Rounding Completed Yes Patient Awake Is family present? No Safety Call Light Within Reach Bed Position Low Phone Within Reach Bed Brake On Side Rails Up X2 Are the Floors Free From Trip Hazards? Yes Is the Room Free From Clutter? Yes Precautions Contact Precautions Droplet Precautions Turn and Postion Bedrest No Turn Q 2HR No Patient Position Left Side Document 11/03/16 21:00 [id number] (Rec: 11/03/16 23:44 [id number]) Hourly Rounding Hourly Rounding Checked for Patient Positioning Patient Personal Items Placed Within Reach Checked Patient Pain Level Hourly Rounding Completed Yes Patient Awake Is family present? No Equipment in Use Specialty Bed Safety Call Light Within Reach Bed Position Low Phone Within Reach Bed Brake On Side Rails Up X2 Are the Floors Free From Trip Hazards? Yes Is the Room Free From Clutter? Yes Turn and Postion Bedrest No Turn Q 2HR No Patient Position Left Side Document 11/03/16 23:00 [id number] (Rec: 11/03/16 23:45 [id number]) Hourly Rounding Hourly Rounding Checked for Patient Positioning Patient Personal Items Placed Within Reach Hourly Rounding Completed Yes Patient Sleeping Is family present? No Equipment in Use Specialty Bed Safety Call Light Within Reach Bed Position Low Phone Within Reach Bed Brake On Side Rails Up X2 Are the Floors Free From Trip Hazards? Yes Is the Room Free From Clutter? Yes Turn and Postion Bedrest No Turn Q 2HR No Patient Position Back Document 11/04/16 00:31 [facility] (Rec: 11/04/16 00:38 [id number] Hourly Rounding Hourly Rounding Checked for Patient Positioning Patient Personal Items Placed Within Reach Hourly Rounding Completed Yes Patient Resting With Eyes Closed Is family present? No Safety Call Light Within Reach Bed Position Low Fall Precautions Phone Within Reach Bed Brake On Side Rails Up X2 Are the Floors Free From Trip Hazards? Yes Is the Room Free From Clutter? Yes Precautions Contact Precautions Turn and Postion Bedrest No Turn Q 2HR No Document 11/04/16 01:40 [id number] (Rec: 11/04/16 02:25 [id number]) Hourly Rounding Hourly Rounding Checked for Patient Positioning Patient Personal Items Placed Within Reach Hourly Rounding Completed Yes Patient Sleeping Is family present? No Equipment in Use Specialty Bed Safety Call Light Within Reach Bed Position Low Fall Precautions Phone Within Reach Bed Brake On Side Rails Up X2 Are the Floors Free From Trip Hazards? Yes Is the Room Free From Clutter? Yes Precautions Contact Precautions Turn and Postion Bedrest No Turn Q 2HR No Patient Position Back Document 11/04/16 03:00 [id number] (Rec: 11/04/16 03:24 [id number]) Hourly Rounding Hourly Rounding Checked for Patient Positioning Patient Personal Items Placed Within Reach Hourly Rounding Completed Yes Patient Sleeping Is family present? No Equipment in Use Specialty Bed Safety Call Light Within Reach Bed Position Low Fall Precautions Phone Within Reach Bed Brake On Side Rails Up X2 Are the Floors Free From Trip Hazards? Yes Is the Room Free From Clutter? Yes Turn and Postion Bedrest No Turn Q 2HR No Patient Position Back Document 11/04/16 04:39 CDP (Rec: 11/04/16 04:50 CDP [id number]) Hourly Rounding Hourly Rounding Checked for Patient Positioning Patient Personal Items Placed Within Reach Checked Patient Pain Level Hourly Rounding Completed Yes Patient Awake Is family present? No Comment Vitals assessment completed, no other needs. Equipment in Use Specialty Bed Safety Call Light Within Reach Bed Position Low Fall Precautions Phone Within Reach Bed Brake On Side Rails Up X1 Side Rails Up X2 Are the Floors Free From Trip Hazards? Yes Is the Room Free From Clutter? Yes Precautions Contact Precautions Droplet Precautions Turn and Postion Bedrest No Turn Q 2HR No Patient Position Back Positioning Aides Pillows Document 11/04/16 05:00 [id number] (Rec: 11/04/16 05:06 [id number]) Hourly Rounding Hourly Rounding Checked for Patient Positioning Patient Personal Items Placed Within Reach Checked Patient Pain Level Hourly Rounding Completed Yes Patient Awake Is family present? No Equipment in Use Specialty Bed Safety Call Light Within Reach Bed Position Low Fall Precautions Phone Within Reach Bed Brake On Side Rails Up X1 Side Rails Up X2 Are the Floors Free From Trip Hazards? Yes Is the Room Free From Clutter? Yes Turn and Postion Bedrest No Turn Q 2HR No Patient Position Right Side Positioning Aides Pillows Document 11/04/16 06:00 [id number] (Rec: 11/04/16 06:59 [id number]) Hourly Rounding Hourly Rounding Checked for Patient Positioning Patient Personal Items Placed Within Reach Checked Patient Pain Level Hourly Rounding Completed Yes Patient Sleeping Is family present? No Equipment in Use Specialty Bed Safety Call Light Within Reach Bed Position Low Fall Precautions Phone Within Reach Bed Brake On Side Rails Up X1 Side Rails Up X2 Are the Floors Free From Trip Hazards? Yes Is the Room Free From Clutter? Yes Precautions Contact Precautions Droplet Precautions Turn and Postion Bedrest No Turn Q 2HR No Patient Position Right Side Positioning Aides Pillows Document 11/04/16 07:22 [facility] (Rec: 11/04/16 07:23 BE[facility] [id number]) Hourly Rounding Hourly Rounding Checked for Patient Positioning Patient Personal Items Placed Within Reach Hourly Rounding Completed Yes Patient Awake Is family present? No Safety Call Light Within Reach Bed Position Low Phone Within Reach Bed Brake On Side Rails Up X2 Are the Floors Free From Trip Hazards? Yes Is the Room Free From Clutter? Yes Precautions Contact Precautions Airborne Precautions Turn and Postion Bedrest No Turn Q 2HR No Document 11/04/16 09:00 JLR (Rec: 11/04/16 10:38 JLR [id number]) Hourly Rounding Hourly Rounding Checked for Patient Positioning Patient Personal Items Placed Within Reach Checked Patient Pain Level Hourly Rounding Completed Yes Patient Awake Is family present? No Safety Call Light Within Reach Bed Position Low Phone Within Reach Bed Brake On Side Rails Up X2 Are the Floors Free From Trip Hazards? Yes Is the Room Free From Clutter? Yes Precautions Airborne Precautions Neutropenic Precuations Turn and Postion Bedrest No Turn Q 2HR No Patient Position Sitting up in Bed Document 11/04/16 10:45 [facility] (Rec: 11/04/16 10:45 [facility] [id number]) Hourly Rounding Hourly Rounding Checked for Patient Positioning Patient Personal Items Placed Within Reach Hourly Rounding Completed Yes Patient Awake Is family present? No Safety Call Light Within Reach Bed Position Low Phone Within Reach Bed Brake On Side Rails Up X2 Are the Floors Free From Trip Hazards? Yes Is the Room Free From Clutter? Yes Precautions Contact Precautions Droplet Precautions Turn and Postion Bedrest No Turn Q 2HR No Document 11/04/16 11:45 JLR (Rec: 11/04/16 11:46 JLR [id number]) Hourly Rounding Hourly Rounding Checked for Patient Positioning Patient Personal Items Placed Within Reach Hourly Rounding Completed Yes Patient Sleeping Is family present? No Safety Call Light Within Reach Bed Position Low Phone Within Reach Bed Brake On Side Rails Up X2 Are the Floors Free From Trip Hazards? Yes Is the Room Free From Clutter? Yes Precautions Contact Precautions Droplet Precautions Turn and Postion Bedrest No Turn Q 2HR No Patient Position Back Document 11/04/16 13:00 JLR (Rec: 11/04/16 15:33 JLR [id number]) Hourly Rounding Hourly Rounding Checked for Patient Positioning Patient Personal Items Placed Within Reach Checked Patient Pain Level Hourly Rounding Completed Yes Patient Awake Is family present? No Safety Call Light Within Reach Bed Position Low Phone Within Reach Bed Brake On Side Rails Up X2 Are the Floors Free From Trip Hazards? Yes Is the Room Free From Clutter? Yes Precautions Droplet Precautions Neutropenic Precuations Turn and Postion Bedrest No Turn Q 2HR No Patient Position Back Document 11/04/16 15:14 [facility] (Rec: 11/04/16 15:14 BEH [id number]) Hourly Rounding Hourly Rounding Checked for Patient Positioning Patient Personal Items Placed Within Reach Hourly Rounding Completed Yes Patient Awake Is family present? No Safety Call Light Within Reach Bed Position Low Phone Within Reach Bed Brake On Side Rails Up X2 Are the Floors Free From Trip Hazards? Yes Is the Room Free From Clutter? Yes Precautions Contact Precautions Droplet Precautions Turn and Postion Bedrest No Turn Q 2HR No Document 11/04/16 15:34 JLR (Rec: 11/04/16 15:39 JLR [id number]) Hourly Rounding Hourly Rounding Checked for Patient Positioning Patient Personal Items Placed Within Reach Checked Patient Pain Level Hourly Rounding Completed Yes Patient Awake Is family present? No Equipment in Use Specialty Bed Safety Call Light Within Reach Bed Position Low Phone Within Reach Bed Brake On Side Rails Up X2 Are the Floors Free From Trip Hazards? Yes Is the Room Free From Clutter? Yes Precautions Droplet Precautions Neutropenic Precuations Turn and Postion Bedrest No Turn Q 2HR No Patient Position Back Document 11/04/16 19:00 [id number] (Rec: 11/04/16 20:01 [id number]) Hourly Rounding Hourly Rounding Checked for Patient Positioning Patient Personal Items Placed Within Reach Checked Patient Pain Level Hourly Rounding Completed Yes Patient Awake Is family present? No Equipment in Use Specialty Bed Safety Call Light Within Reach Bed Position Low Phone Within Reach Bed Brake On Side Rails Up X2 Are the Floors Free From Trip Hazards? Yes Is the Room Free From Clutter? Yes Turn and Postion Bedrest No Turn Q 2HR No Patient Position Back Document 11/04/16 22:11 [facility] (Rec: 11/04/16 22:12 [id number] Hourly Rounding Hourly Rounding Checked for Patient Positioning Patient Personal Items Placed Within Reach Hourly Rounding Completed Yes Patient Awake Is family present? No Safety Call Light Within Reach Bed Position Low Phone Within Reach Side Rails Up X2 Are the Floors Free From Trip Hazards? Yes Is the Room Free From Clutter? Yes Turn and Postion Bedrest No Turn Q 2HR No Patient Position Back Document 11/05/16 00:42 [facility] (Rec: 11/05/16 00:43 [id number] Hourly Rounding Hourly Rounding Checked for Patient Positioning Patient Personal Items Placed Within Reach Hourly Rounding Completed Yes Patient Awake Is family present? No Safety Call Light Within Reach Bed Position Low Phone Within Reach Side Rails Up X2 Are the Floors Free From Trip Hazards? Yes Is the Room Free From Clutter? Yes Precautions Contact Precautions Turn and Postion Bedrest No Turn Q 2HR No Patient Position Back Document 11/05/16 02:00 [id number] (Rec: 11/05/16 03:01 [id number]) Hourly Rounding Hourly Rounding Checked for Patient Positioning Patient Personal Items Placed Within Reach Checked Patient Pain Level Hourly Rounding Completed Yes Patient Awake Is family present? No Equipment in Use Specialty Bed Safety Call Light Within Reach Bed Position Low Phone Within Reach Side Rails Up X2 Are the Floors Free From Trip Hazards? Yes Is the Room Free From Clutter? Yes Turn and Postion Bedrest No Turn Q 2HR No Patient Position Back Document 11/05/16 04:11 [facility] (Rec: 11/05/16 04:11 [id number] Hourly Rounding Hourly Rounding Checked for Patient Positioning Patient Personal Items Placed Within Reach Hourly Rounding Completed Yes Patient Awake Is family present? No Safety Call Light Within Reach Bed Position Low Phone Within Reach Side Rails Up X2 Are the Floors Free From Trip Hazards? Yes Is the Room Free From Clutter? Yes Precautions Contact Precautions Turn and Postion Bedrest No Turn Q 2HR No Patient Position Back Document 11/05/16 05:00 [id number] (Rec: 11/05/16 06:06 [id number]) Hourly Rounding Hourly Rounding Checked for Patient Positioning Patient Personal Items Placed Within Reach Hourly Rounding Completed Yes Patient Sleeping Is family present? No Equipment in Use Specialty Bed Safety Call Light Within Reach Bed Position Low Phone Within Reach Side Rails Up X2 Are the Floors Free From Trip Hazards? Yes Is the Room Free From Clutter? Yes Precautions Contact Precautions Turn and Postion Bedrest No Turn Q 2HR No Patient Position Back Document 11/05/16 06:00 [id number] (Rec: 11/05/16 06:11 [id number]) Hourly Rounding Hourly Rounding Checked for Patient Positioning Patient Personal Items Placed Within Reach Checked Patient Pain Level Hourly Rounding Completed Yes Patient Awake Is family present? No Equipment in Use Specialty Bed Safety Call Light Within Reach Bed Position Low Phone Within Reach Side Rails Up X2 Are the Floors Free From Trip Hazards? Yes Is the Room Free From Clutter? Yes Precautions Contact Precautions Turn and Postion Bedrest No Turn Q 2HR No Patient Position Back Document 11/05/16 06:55 [facility] (Rec: 11/05/16 07:03 BEH [id number]) Hourly Rounding Hourly Rounding Checked for Patient Positioning Patient Personal Items Placed Within Reach Hourly Rounding Completed Yes Patient Awake Is family present? No Safety Call Light Within Reach Bed Position Low Phone Within Reach Bed Brake On Side Rails Up X2 Are the Floors Free From Trip Hazards? Yes Is the Room Free From Clutter? Yes Precautions Contact Precautions Droplet Precautions Turn and Postion Bedrest No Turn Q 2HR No Document 11/05/16 09:20 MED (Rec: 11/05/16 13:22 MED [id number]) Hourly Rounding Hourly Rounding Checked for Patient Positioning Patient Personal Items Placed Within Reach Checked Patient Pain Level Hourly Rounding Completed Yes Patient Awake Is family present? No Equipment in Use Specialty Bed Safety Call Light Within Reach Bed Position Low Phone Within Reach Bed Brake On Side Rails Up X2 Are the Floors Free From Trip Hazards? Yes Is the Room Free From Clutter? Yes Precautions Contact Precautions Droplet Precautions Turn and Postion Bedrest No Turn Q 2HR No Document 11/05/16 10:06 [facility] (Rec: 11/05/16 10:06 BEH [id number]) Hourly Rounding Hourly Rounding Checked for Patient Positioning Patient Personal Items Placed Within Reach Hourly Rounding Completed Yes Patient Awake Is family present? No Safety Call Light Within Reach Bed Position Low Phone Within Reach Bed Brake On Side Rails Up X2 Are the Floors Free From Trip Hazards? Yes Is the Room Free From Clutter? Yes Precautions Contact Precautions Droplet Precautions Turn and Postion Bedrest No Turn Q 2HR No Document 11/05/16 11:30 [facility] (Rec: 11/05/16 11:31 BEH [id number]) Hourly Rounding Hourly Rounding Checked for Patient Positioning Patient Personal Items Placed Within Reach Hourly Rounding Completed Yes Patient Awake Is family present? No Safety Call Light Within Reach Bed Position Low Phone Within Reach Bed Brake On Side Rails Up X2 Are the Floors Free From Trip Hazards? Yes Is the Room Free From Clutter? Yes Precautions Contact Precautions Droplet Precautions Turn and Postion Bedrest No Turn Q 2HR No Peripheral venous cannula mgmt/flush Start: 10/31/16 00: 57 Freq: CONT Status: Complete Document 10/31/16 08:29 [id number] (Rec: 10/31/16 08:34 [id number]) RT Continuous Pulse Oximetry Start: 10/31/16 00: 57 Freq: CONT Status: Discharge Document 10/31/16 08:29 [id number] (Rec: 10/31/16 08:34 [id number]) Pulse Oximetry Oxygen Delivery Method Room Air RT has an order or consult Start: 10/31/16 00: 57 Freq: NOW Status: Discharge Document 11/03/16 21:00 [id number] (Rec: 11/03/16 23:44 [id number]) Document 11/04/16 19:00 [id number] (Rec: 11/04/16 20:01 [id number]) Saline lock insertion/management Start: 10/30/16 19: 25 Freq: Status: Discharge Document 10/30/16 19:33 BAS (Rec: 10/30/16 19:33 BAS [id number]) IV Insertion/Site Assessment 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 Date of Insertion 10/30/16 Reason for IV Insertion Provide Access for IV Medication(s) IV Catheter Type Peripheral IV Gauge (gauge) 20 Site Observation Patent [place] Dressing Applied Transparent Dressing Sepsis Screening Start: 10/30/16 23: 59 Freq: Q8H Status: Discharge Document 10/31/16 01:58 [id number] (Rec: 10/31/16 01:59 [id number]) Sepsis Screening Sepsis Infection Criteria Present confirmed infection Sepsis SIRS Criteria HR > 90 bpm Sepsis Organ Dysfunction Criteria none Present Sepsis Screen No Definite Risk Sepsis Action Taken no action required Document 10/31/16 08:29 [id number] (Rec: 10/31/16 08:34 [id number]) Sepsis Screening Sepsis Infection Criteria Present confirmed infection Sepsis SIRS Criteria HR > 90 bpm Sepsis Screen No Definite Risk Sepsis Action Taken no action required Document 10/31/16 17:53 [id number] (Rec: 10/31/16 18:06 [id number]) Sepsis Screening Sepsis Infection Criteria Present confirmed infection Sepsis SIRS Criteria HR > 90 bpm Sepsis Screen No Definite Risk Sepsis Action Taken no action required Document 10/31/16 20:45 [id number] (Rec: 10/31/16 23:27 [id number]) Sepsis Screening Sepsis Infection Criteria Present confirmed infection Sepsis SIRS Criteria HR > 90 bpm Sepsis Screen No Definite Risk Sepsis Action Taken no action required Document 11/01/16 06:11 [id number] (Rec: 11/01/16 06:14 [id number]) Sepsis Screening Sepsis Infection Criteria Present confirmed infection Sepsis SIRS Criteria HR > 90 bpm Sepsis Screen No Definite Risk Sepsis Action Taken no action required Document 11/01/16 08:00 (Rec: 11/01/16 11:27 [id number] Sepsis Screening Sepsis Infection Criteria Present confirmed infection Sepsis SIRS Criteria HR > 90 bpm Sepsis Screen No Definite Risk Sepsis Action Taken no action required Document 11/01/16 16:00 (Rec: 11/01/16 19:13 [id number]) Sepsis Screening Sepsis Infection Criteria Present confirmed infection Sepsis SIRS Criteria HR > 90 bpm Sepsis Screen No Definite Risk Sepsis Action Taken no action required Document 11/01/16 21:15 [facility] (Rec: 11/01/16 23:17 [facility]-[id number]) Sepsis Screening Sepsis Infection Criteria Present confirmed infection Sepsis SIRS Criteria HR > 90 bpm Sepsis Screen No Definite Risk Sepsis Action Taken no action required Document 11/02/16 00:38 [facility] (Rec: 11/02/16 00:40 [facility]-[id number]) Sepsis Screening Sepsis Infection Criteria Present confirmed infection Sepsis SIRS Criteria HR > 90 bpm Sepsis Screen No Definite Risk Sepsis Action Taken no action required Document 11/02/16 08:20 WDT (Rec: 11/02/16 16:39 WDT [id number]) Sepsis Screening Sepsis Infection Criteria Present confirmed infection Sepsis SIRS Criteria HR > 90 bpm Sepsis Screen No Definite Risk Sepsis Action Taken no action required Document 11/02/16 20:34 [facility] (Rec: 11/02/16 21:21 [id number] Sepsis Screening Sepsis Infection Criteria Present confirmed infection Sepsis SIRS Criteria none Sepsis Screen No Definite Risk Sepsis Action Taken no action required Document 11/03/16 02:34 [facility] (Rec: 11/03/16 02:36 [id number] Sepsis Screening Sepsis Infection Criteria Present confirmed infection Sepsis SIRS Criteria none Sepsis Screen No Definite Risk Sepsis Action Taken no action required Document 11/03/16 09:00 JLR (Rec: 11/03/16 10:47 JLR [id number]) Sepsis Screening Sepsis Infection Criteria Present confirmed infection Sepsis SIRS Criteria none Sepsis Screen No Definite Risk Sepsis Action Taken no action required Document 11/03/16 17:00 JLR (Rec: 11/03/16 18:35 JLR [id number]) Sepsis Screening Sepsis Infection Criteria Present confirmed infection Sepsis SIRS Criteria WBC > 12k or < 4k or bands > 10% Sepsis Screen No Definite Risk Sepsis Action Taken no action required Document 11/03/16 21:00 [id number] (Rec: 11/03/16 23:44 [id number]) Sepsis Screening Sepsis Infection Criteria Present confirmed infection Sepsis SIRS Criteria WBC > 12k or < 4k or bands > 10% Sepsis Screen No Definite Risk Sepsis Action Taken no action required Document 11/04/16 05:00 [id number] (Rec: 11/04/16 05:06 [id number]) Sepsis Screening Sepsis Infection Criteria Present confirmed infection Sepsis SIRS Criteria WBC > 12k or < 4k or bands > 10% Sepsis Screen No Definite Risk Sepsis Action Taken no action required Document 11/04/16 09:00 JLR (Rec: 11/04/16 10:38 JLR [id number]) Sepsis Screening Sepsis Infection Criteria Present confirmed infection Sepsis SIRS Criteria WBC > 12k or < 4k or bands > 10% Sepsis Screen No Definite Risk Sepsis Action Taken no action required Document 11/04/16 15:34 JLR (Rec: 11/04/16 15:39 JLR [id number]) Sepsis Screening Sepsis Infection Criteria Present confirmed infection Sepsis SIRS Criteria WBC > 12k or < 4k or bands > 10% Sepsis Screen No Definite Risk Sepsis Action Taken no action required Document 11/04/16 19:00 [id number] (Rec: 11/04/16 20:01 [id number]) Sepsis Screening Sepsis Infection Criteria Present confirmed infection Sepsis SIRS Criteria WBC > 12k or < 4k or bands > 10% Sepsis Screen No Definite Risk Sepsis Action Taken no action required Document 11/05/16 02:00 [id number] (Rec: 11/05/16 03:01 [id number]) Sepsis Screening Sepsis Infection Criteria Present confirmed infection Sepsis SIRS Criteria WBC > 12k or < 4k or bands > 10% Sepsis Screen No Definite Risk Sepsis Action Taken no action required Document 11/05/16 09:20 MED (Rec: 11/05/16 13:22 MED [id number]) Sepsis Screening Sepsis Infection Criteria Present confirmed infection Sepsis SIRS Criteria WBC > 12k or < 4k or bands > 10% Sepsis Screen No Definite Risk Sepsis Action Taken no action required Skin Risk Assessment Scale Start: 10/30/16 23: 59 Text: * Bed and chairbound individuals or those with Status: Discharge impaired ability to reposition should be assessed upon admission for their risk of developing pressure ulcers * Patients with established pressure ulcers should be reassessed periodically. Freq: Q12H Document 10/31/16 00:30 [id number] (Rec: 10/31/16 01:53 [id number]) Skin Risk Assessment Scale Moisture Risk Rarely Moist Sensory Perception Slightly Limited Activity Risk Walks Occasionally Mobility Risk Slightly Limited Nutrition Risk Probably Inadequate Friction & Shear Risk No Apparent Problem Skin Risk Total Score (points) 18 Document 10/31/16 08:29 [id number] (Rec: 10/31/16 08:34 [id number]) Skin Risk Assessment Scale Moisture Risk Rarely Moist Sensory Perception No Impairment Activity Risk Walks Occasionally Mobility Risk Slightly Limited Nutrition Risk Adequate Friction & Shear Risk No Apparent Problem Skin Risk Total Score (points) 20 Document 10/31/16 20:45 [id number] (Rec: 10/31/16 23:27 [id number]) Skin Risk Assessment Scale Moisture Risk Rarely Moist Sensory Perception No Impairment Activity Risk Walks Occasionally Mobility Risk Slightly Limited Nutrition Risk Adequate Friction & Shear Risk No Apparent Problem Skin Risk Total Score (points) 20 Document 11/01/16 08:00 DH (Rec: 11/01/16 11:27 DH [id number]) Skin Risk Assessment Scale Moisture Risk Rarely Moist Sensory Perception No Impairment Activity Risk Walks Occasionally Mobility Risk Slightly Limited Nutrition Risk Adequate Friction & Shear Risk No Apparent Problem Skin Risk Total Score (points) 20 Document 11/01/16 21:15 [facility] (Rec: 11/01/16 23:17 [facility]-[id number]) Skin Risk Assessment Scale Moisture Risk Rarely Moist Sensory Perception No Impairment Activity Risk Walks Occasionally Mobility Risk Slightly Limited Nutrition Risk Adequate Friction & Shear Risk No Apparent Problem Skin Risk Total Score (points) 20 Document 11/02/16 08:20 WDT (Rec: 11/02/16 16:39 WDT [id number]) Skin Risk Assessment Scale Moisture Risk Rarely Moist Sensory Perception No Impairment Activity Risk Walks Occasionally Mobility Risk Slightly Limited Nutrition Risk Adequate Friction & Shear Risk No Apparent Problem Skin Risk Total Score (points) 20 Document 11/02/16 20:34 [facility] (Rec: 11/02/16 21:21 [id number]) Skin Risk Assessment Scale Moisture Risk Rarely Moist Sensory Perception No Impairment Activity Risk Walks Occasionally Mobility Risk Slightly Limited Nutrition Risk Adequate Friction & Shear Risk No Apparent Problem Skin Risk Total Score (points) 20 Document 11/03/16 09:00 JLR (Rec: 11/03/16 10:47 JLR [id number]) Skin Risk Assessment Scale Moisture Risk Rarely Moist Sensory Perception No Impairment Activity Risk Walks Occasionally Mobility Risk Slightly Limited Nutrition Risk Adequate Friction & Shear Risk No Apparent Problem Skin Risk Total Score (points) 20 Document 11/03/16 21:00 [id number] (Rec: 11/03/16 23:44 [id number]) Skin Risk Assessment Scale Moisture Risk Rarely Moist Sensory Perception No Impairment Activity Risk Walks Occasionally Mobility Risk Slightly Limited Nutrition Risk Adequate Friction & Shear Risk No Apparent Problem Skin Risk Total Score (points) 20 Document 11/04/16 09:00 JLR (Rec: 11/04/16 10:38 JLR [id number]) Skin Risk Assessment Scale Moisture Risk Rarely Moist Sensory Perception No Impairment Activity Risk Walks Occasionally Mobility Risk Slightly Limited Nutrition Risk Adequate Friction & Shear Risk No Apparent Problem Skin Risk Total Score (points) 20 Document 11/04/16 19:00 [id number] (Rec: 11/04/16 20:01 [id number]) Skin Risk Assessment Scale Moisture Risk Rarely Moist Sensory Perception No Impairment Activity Risk Walks Occasionally Mobility Risk Slightly Limited Nutrition Risk Adequate Friction & Shear Risk No Apparent Problem Skin Risk Total Score (points) 20 Document 11/05/16 09:20 MED (Rec: 11/05/16 13:22 MED [id number]) Skin Risk Assessment Scale Moisture Risk Rarely Moist Sensory Perception No Impairment Activity Risk Walks Occasionally Mobility Risk Slightly Limited Nutrition Risk Adequate Friction & Shear Risk No Apparent Problem Skin Risk Total Score (points) 20 Social Work Initial Assessment Start: 10/31/16 16: 10 Freq: Status: Complete Document 10/31/16 16:10 RANDELL (Rec: 10/31/16 16:16 RANDELL [id number]) Bed Type Bed Type Acute Next Of Kin Emergency Contact Name karely burdick Emergency Contact Relationship to Patient Advanced Dir/Guardianship Advance Directives Yes Advance Directives Information Provided Yes Advance Directives on File No Living Will Yes Living Situation Home Environment House Resides With Spouse Next Of Kin Notes From home with . Social Support Social Support Family Support Services Notes Daughter lives down the street . Current Durable Medical Equip Current Durable Medical Equipment [id number] Commode Shower Chair Walker Wheelchair Anticipated Discharge Plan Disposition To Be Determined Anticipated Durable Medical Equipment None Anticipated Support Services No Services Anticipated Narrative Narrative SWT, Ester Mckeon met with the patient and patient's family to discuss discharge plans. Patient states that she has no needs at home and is independent. Patient states that her daughter lives down the street and can help her if needed as well as her who lives with her. SWT confirmed understanding. custodial services manager to follow-up regarding discharge after more information is gathered about discharge needs. Maximo MEDINA reviewed and approved this documentation. System Review Start: 10/30/16 23: 59 Text: Status: Discharge Freq: Q8H Document 10/31/16 00:30 [id number] (Rec: 10/31/16 01:53 [id number]) Pain Assessment Pain Present Reports Pain Head Pain Intensity 2 Description Ache Scale Used Numeric (1 - 10) Pain Intervention Reduced Environmental Stimuli Darkened Room Neurological Assessment Eye Opening Spontaneous Motor Obeys Commands Verbal Oriented Coma Scale Total 15 Neurologic Status Alert Patient Orientation Person Place Time Arousable To Name Speech Pattern Normal rate Normal rhythm Normal tone Appropriate Clear Coherent Patient Behavior Cooperative Mood Description Calm Relaxed right\\ Pupil Reaction Reactive Pupil [place] Equal Scleral Edema No Left Pupil Reaction Reactive Pupil [place] Equal Scleral Edema No Art Objects Supervisor Strength Equal Push/Pull Equal Numbness/Tingling No Facial Symmetry Symmetrical Neurological Comment: a/o x3 Cardiovascular Assessment Heart Sounds S1 & S2 Jugular Vein Distention None Capillary Refill < 3 Seconds Circulatory Tenderness Description None Right Radial 2+ Left Radial 2+ Right Dorsalis Pedis 2+ Left Dorsalis Pedis 2+ Has Confirmed Diagnosis of DVT, PE or No VTE Mechanical Prophylaxis Yes Documentation of Mechanical Device Graduated compression elastic hosiery Mechanical Device Location Bilateral Lower Extremities Respiratory Assessment Respiratory Symptoms Shortness of Breath on Exertion Effort Spontaneous Non-Labored Depth Normal Respiratory Pattern Regular Chest Shape Normal Expansion Symmetrical All Lung Burgess Clear Oxygen Delivery Method Room Air Cough Description Involuntary Non-Productive Cough Frequency Intermittent Sputum Amount None Gastrointestinal Assessment Abdomen Description Flat Soft Non-Tender 3 or more loose stools, in less than 24 No hours Nausea/Vomiting Presence None All Four Quadrants Active Flatus Presence Present Genitourinary Assessment Bladder Pattern Normal Voiding Method Bedside Commode Bladder Distention None Suprapubic Tenderness with Palpation No Comment: have not assessed urine will continue to monitor Integumentary Assessment Fingernail Color Yellow Nail Bed Appearance Pale Temperature Warm Moisture Dry Turgor Normal Color Pale All Pressure Points Assessed No Evidence of Incision/Wounds/Breakdown No Mucous membranes moist, pink and intact Yes Integumentary Comment: scar below belly button healed from Musculoskeletal Assessment Musculoskeletal Symptoms Generalized Weakness Document 10/31/16 08:29 [id number] (Rec: 10/31/16 08:34 [id number]) Pain Assessment Pain Present Reports No Pain Neurological Assessment Eye Opening Spontaneous Motor Obeys Commands Verbal Oriented Coma Scale Total 15 Neurologic Status Alert Patient Orientation Person Place Time Arousable To Name Speech Pattern Normal rate Normal rhythm Normal tone Appropriate Clear Coherent Patient Behavior Appropriate Cooperative Mood Description Calm Relaxed Appropriate right\\ Pupil Reaction Reactive Pupil [place] Equal Scleral Edema No Left Pupil Reaction Reactive Pupil [place] Equal Scleral Edema No Art Objects Supervisor Strength Equal Push/Pull Equal Numbness/Tingling No Facial Symmetry Symmetrical Blink Present Cough/Gag Normal Cardiovascular Assessment Signs and Symptoms Rapid Heart Rate Heart Sounds S1 & S2 Pulse Rhythm Regular Jugular Vein Distention None Capillary Refill < 3 Seconds Circulatory Tenderness Description None Right Radial 2+ Left Radial 2+ Right Dorsalis Pedis 2+ Left Dorsalis Pedis 2+ Chest Pain Complaint No Has Confirmed Diagnosis of DVT, PE or No VTE Mechanical Prophylaxis Yes Documentation of Mechanical Device Graduated compression elastic hosiery Mechanical Device Location Bilateral Lower Extremities Cardiac Monitoring Heart Rate 104 Monitoring Method Telemetry Rhythm Sinus Tachycardia W[place] Interval 0.12 QRS Interval 0.08 QT Interval 0.31 Monitor Number hardwire Strip placed in Chart Yes Respiratory Assessment Respiratory Symptoms Shortness of Breath on Exertion Difficulty Clearing Secretions Dry Cough Effort Normal for Patient Spontaneous Non-Labored Depth Normal Respiratory Pattern Regular Chest Shape Normal Expansion Symmetrical All Lung Burgess Clear Oxygen Delivery Method Room Air Cough Description Involuntary Non-Productive Moist Cough Frequency Intermittent Sputum Amount None Gastrointestinal Assessment Abdomen Description Flat Soft Non-Tender 3 or more loose stools, in less than 24 No hours Nausea/Vomiting Presence None All Four Quadrants Active Flatus Presence Present Genitourinary Assessment Genitourinary Symptoms None Bladder Pattern Normal Voiding Method Bedside Commode Urine Appearance Clear Color Dark Yellow Bladder Distention None Suprapubic Tenderness with Palpation No Integumentary Assessment Fingernail Color Yellow Nail Bed Appearance Pale Temperature Warm Moisture Dry Turgor Normal Color Pale All Pressure Points Assessed Yes Evidence of Incision/Wounds/Breakdown No Mucous membranes moist, pink and intact Yes Musculoskeletal Assessment Musculoskeletal Symptoms Generalized Weakness Document 10/31/16 17:53 [id number] (Rec: 10/31/16 18:06 [id number]) Pain Assessment Pain Present Reports No Pain Neurological Assessment Eye Opening Spontaneous Motor Obeys Commands Verbal Oriented Coma Scale Total 15 Neurologic Status Alert Patient Orientation Person Place Time Arousable To Name Speech Pattern Normal rate Normal rhythm Normal tone Appropriate Clear Coherent Patient Behavior Appropriate Cooperative Mood Description Calm Relaxed Appropriate right\\ Pupil Reaction Reactive Pupil [place] Equal Scleral Edema No Left Pupil Reaction Reactive Pupil [place] Equal Scleral Edema No Art Objects Supervisor Strength Equal Push/Pull Equal Numbness/Tingling No Facial Symmetry Symmetrical Blink Present Cough/Gag Normal Cardiovascular Assessment Signs and Symptoms None Heart Sounds S1 & S2 Pulse Rhythm Regular Jugular Vein Distention None Capillary Refill < 3 Seconds Circulatory Tenderness Description None Right Radial 2+ Left Radial 2+ Right Dorsalis Pedis 2+ Left Dorsalis Pedis 2+ Chest Pain Complaint No Has Confirmed Diagnosis of DVT, PE or No VTE Mechanical Prophylaxis Yes Documentation of Mechanical Device Graduated compression elastic hosiery Mechanical Device Location Bilateral Lower Extremities Cardiac Monitoring Heart Rate 92 Monitoring Method Telemetry Rhythm Sinus Rhythm WY Interval 0.13 QRS Interval 0.09 QT Interval 0.33 Monitor Number hardwire Strip placed in Chart Yes Respiratory Assessment Respiratory Symptoms Shortness of Breath on Exertion Difficulty Clearing Secretions Dry Cough Effort Normal for Patient Spontaneous Non-Labored Depth Normal Respiratory Pattern Regular Chest Shape Normal Expansion Symmetrical All Lung Burgess Clear Oxygen Delivery Method Room Air Cough Description Involuntary Non-Productive Moist Cough Frequency Intermittent Sputum Amount None Gastrointestinal Assessment Abdomen Description Flat Soft Non-Tender 3 or more loose stools, in less than 24 No hours Nausea/Vomiting Presence None All Four Quadrants Active Flatus Presence Present Genitourinary Assessment Genitourinary Symptoms None Bladder Pattern Normal Voiding Method Bedside Commode Urine Appearance Clear Color Bright Yellow Bladder Distention None Suprapubic Tenderness with Palpation No Integumentary Assessment Fingernail Color Yellow Nail Bed Appearance Pale Temperature Warm Moisture Dry Turgor Normal Color Pale All Pressure Points Assessed Yes Evidence of Incision/Wounds/Breakdown No Mucous membranes moist, pink and intact Yes Oral Cavity Normal Musculoskeletal Assessment Musculoskeletal Symptoms Generalized Weakness Document 10/31/16 20:45 [id number] (Rec: 10/31/16 23:27 [id number]) Pain Assessment Pain Present Reports No Pain Neurological Assessment Eye Opening Spontaneous Motor Obeys Commands Verbal Oriented Coma Scale Total 15 Neurologic Status Alert Patient Orientation Person Place Time Arousable To Name Speech Pattern Normal rate Normal rhythm Normal tone Appropriate Clear Coherent Patient Behavior Cooperative Mood Description Calm right\\ Pupil Reaction Reactive Pupil [place] Equal Scleral Edema No Left Pupil Reaction Reactive Pupil [place] Equal Scleral Edema No Art Objects Supervisor Strength Equal Push/Pull Equal Numbness/Tingling No Facial Symmetry Symmetrical Blink Present Cough/Gag Normal Neurological Comment: a/o x3 Cardiovascular Assessment Signs and Symptoms None Heart Sounds S1 & S2 Pulse Rhythm Regular Jugular Vein Distention None Capillary Refill < 3 Seconds Circulatory Tenderness Description None Right Radial 2+ Left Radial 2+ Right Dorsalis Pedis 2+ Left Dorsalis Pedis 2+ Chest Pain Complaint No Has Confirmed Diagnosis of DVT, PE or No VTE Mechanical Prophylaxis Yes Documentation of Mechanical Device Graduated compression elastic hosiery Mechanical Device Location Bilateral Lower Extremities Respiratory Assessment Respiratory Symptoms Shortness of Breath on Exertion Difficulty Clearing Secretions Dry Cough Effort Spontaneous Non-Labored Depth Normal Respiratory Pattern Regular Chest Shape Normal Expansion Symmetrical All Lung Burgess Clear Oxygen Delivery Method Room Air Cough Description Involuntary Non-Productive Moist Cough Frequency Intermittent Sputum Amount None Gastrointestinal Assessment Abdomen Description Flat Soft Non-Tender 3 or more loose stools, in less than 24 No hours Nausea/Vomiting Presence None All Four Quadrants Active Flatus Presence Present Genitourinary Assessment Genitourinary Symptoms None Bladder Pattern Normal Voiding Method Bedside Commode Bladder Distention None Suprapubic Tenderness with Palpation No Comment: have not assessed urine will continue to monitor Integumentary Assessment Fingernail Color Yellow Nail Bed Appearance Pale Temperature Warm Moisture Dry Turgor Normal Color Pale All Pressure Points Assessed Yes Evidence of Incision/Wounds/Breakdown No Mucous membranes moist, pink and intact Yes Oral Cavity Normal Integumentary Comment: scar below belly button healed from Musculoskeletal Assessment Musculoskeletal Symptoms Generalized Weakness Document 11/01/16 06:11 [id number] (Rec: 11/01/16 06:14 [id number]) Pain Assessment Pain Present Reports No Pain Neurological Assessment Eye Opening Spontaneous Motor Obeys Commands Verbal Oriented Coma Scale Total 15 Neurologic Status Alert Patient Orientation Person Place Time Arousable To Name Speech Pattern Normal rate Normal rhythm Normal tone Appropriate Clear Coherent Patient Behavior Cooperative Mood Description Calm right\\ Pupil Reaction Reactive Pupil [place] Equal Scleral Edema No Left Pupil Reaction Reactive Pupil [place] Equal Scleral Edema No Art Objects Supervisor Strength Equal Push/Pull Equal Numbness/Tingling No Facial Symmetry Symmetrical Blink Present Cough/Gag Normal Neurological Comment: a/o x3 Cardiovascular Assessment Signs and Symptoms None Heart Sounds S1 & S2 Pulse Rhythm Regular Jugular Vein Distention None Capillary Refill < 3 Seconds Circulatory Tenderness Description None Right Radial 2+ Left Radial 2+ Right Dorsalis Pedis 2+ Left Dorsalis Pedis 2+ Chest Pain Complaint No Has Confirmed Diagnosis of DVT, PE or No VTE Mechanical Prophylaxis Yes Documentation of Mechanical Device Graduated compression elastic hosiery Mechanical Device Location Bilateral Lower Extremities Respiratory Assessment Respiratory Symptoms Shortness of Breath on Exertion Difficulty Clearing Secretions Dry Cough Effort Spontaneous Non-Labored Depth Normal Respiratory Pattern Regular Chest Shape Normal Expansion Symmetrical All Lung Burgess Clear Oxygen Delivery Method Room Air Cough Description Involuntary Non-Productive Moist Cough Frequency Intermittent Sputum Amount None Gastrointestinal Assessment Abdomen Description Flat Soft Non-Tender 3 or more loose stools, in less than 24 No hours Nausea/Vomiting Presence None All Four Quadrants Active Flatus Presence Present Genitourinary Assessment Genitourinary Symptoms None Bladder Pattern Normal Voiding Method Bedside Commode Bladder Distention None Suprapubic Tenderness with Palpation No Comment: have not assessed urine will continue to monitor Integumentary Assessment Fingernail Color Yellow Nail Bed Appearance Pale Temperature Warm Moisture Dry Turgor Normal Color Pale All Pressure Points Assessed Yes Evidence of Incision/Wounds/Breakdown No Mucous membranes moist, pink and intact Yes Oral Cavity Normal Integumentary Comment: scar below belly button healed from Musculoskeletal Assessment Musculoskeletal Symptoms Generalized Weakness Document 11/01/16 08:00 (Rec: 11/01/16 11:27 [id number] Pain Assessment Pain Present Reports No Pain Neurological Assessment Eye Opening Spontaneous Motor Obeys Commands Verbal Oriented Coma Scale Total 15 Neurologic Status Alert Patient Orientation Person Place Time Arousable To Name Speech Pattern Normal rate Normal rhythm Normal tone Appropriate Clear Patient Behavior Appropriate Cooperative Mood Description Calm Relaxed right\\ Pupil Reaction Reactive Pupil [place] Equal Scleral Edema No Left Pupil Reaction Reactive Pupil [place] Equal Scleral Edema No Art Objects Supervisor Strength Equal Push/Pull Equal Numbness/Tingling No Facial Symmetry Symmetrical Cardiovascular Assessment Signs and Symptoms None Heart Sounds S1 & S2 Pulse Rhythm Regular Jugular Vein Distention None Capillary Refill < 3 Seconds Circulatory Tenderness Description None Right Radial 2+ Left Radial 2+ Right Dorsalis Pedis 2+ Left Dorsalis Pedis 2+ Has Confirmed Diagnosis of DVT, PE or No VTE Mechanical Prophylaxis Yes Documentation of Mechanical Device Graduated compression elastic hosiery Mechanical Device Location Bilateral Lower Extremities Cardiac Monitoring Heart Rate 84 Monitoring Method Telemetry Rhythm Sinus Rhythm WY Interval 0.16 QRS Interval 0.07 QT Interval 0.31 Monitor Number [id number] Strip placed in Chart Yes Respiratory Assessment Respiratory Symptoms Shortness of Breath on Exertion Difficulty Clearing Secretions Dry Cough Effort Spontaneous Non-Labored Depth Normal Respiratory Pattern Regular Chest Shape Normal Expansion Symmetrical All Lung Burgess Clear Oxygen Delivery Method Room Air Cough Description Involuntary Non-Productive Moist Cough Frequency Intermittent Sputum Amount None Gastrointestinal Assessment Abdomen Description Flat Soft Non-Tender 3 or more loose stools, in less than 24 No hours Nausea/Vomiting Presence None All Four Quadrants Active Flatus Presence Present Genitourinary Assessment Genitourinary Symptoms None Bladder Pattern Normal Voiding Method Bedside Commode Urine Appearance Clear Color Bright Yellow Bladder Distention None Suprapubic Tenderness with Palpation No Integumentary Assessment Nail Bed Appearance Pale Temperature Warm Moisture Dry Turgor Normal Color Pale All Pressure Points Assessed Yes Evidence of Incision/Wounds/Breakdown No Mucous membranes moist, pink and intact Yes Oral Cavity Normal Musculoskeletal Assessment Musculoskeletal Symptoms Generalized Weakness Document 11/01/16 16:00 (Rec: 11/01/16 19:13 [id number] Pain Assessment Pain Present Reports No Pain Neurological Assessment Eye Opening Spontaneous Motor Obeys Commands Verbal Oriented Coma Scale Total 15 Neurologic Status Alert Patient Orientation Person Place Time Arousable To Name Speech Pattern Normal rate Normal rhythm Normal tone Appropriate Clear Patient Behavior Appropriate Cooperative Mood Description Calm Relaxed right\\ Pupil Reaction Reactive Pupil [place] Equal Scleral Edema No Left Pupil Reaction Reactive Pupil [place] Equal Scleral Edema No Art Objects Supervisor Strength Equal Push/Pull Equal Numbness/Tingling No Facial Symmetry Symmetrical Cardiovascular Assessment Signs and Symptoms None Heart Sounds S1 & S2 Pulse Rhythm Regular Jugular Vein Distention None Capillary Refill < 3 Seconds Circulatory Tenderness Description None Right Radial 2+ Left Radial 2+ Right Dorsalis Pedis 2+ Left Dorsalis Pedis 2+ Has Confirmed Diagnosis of DVT, PE or No VTE Mechanical Prophylaxis Yes Documentation of Mechanical Device Graduated compression elastic hosiery Mechanical Device Location Bilateral Lower Extremities Respiratory Assessment Respiratory Symptoms Shortness of Breath on Exertion Difficulty Clearing Secretions Dry Cough Effort Spontaneous Non-Labored Depth Normal Respiratory Pattern Regular Chest Shape Normal Expansion Symmetrical All Lung Burgess Clear Oxygen Delivery Method Room Air Cough Description Involuntary Non-Productive Moist Cough Frequency Intermittent Sputum Amount None Gastrointestinal Assessment Abdomen Description Flat Soft Non-Tender 3 or more loose stools, in less than 24 No hours Nausea/Vomiting Presence None All Four Quadrants Active Genitourinary Assessment Genitourinary Symptoms None Bladder Pattern Normal Voiding Method Bedside Commode Integumentary Assessment Fingernail Color Yellow Nail Bed Appearance Pale Mucous membranes moist, pink and intact Yes Oral Cavity Normal Musculoskeletal Assessment Musculoskeletal Symptoms Generalized Weakness Document 11/01/16 21:15 [facility] (Rec: 11/01/16 23:17 [facility] [id number]) Pain Assessment Pain Present Reports No Pain Neurological Assessment Eye Opening Spontaneous Motor Obeys Commands Verbal Oriented Coma Scale Total 15 Neurologic Status Alert Patient Orientation Person Place Time Arousable To Name Speech Pattern Normal rate Normal rhythm Normal tone Appropriate Clear Patient Behavior Appropriate Cooperative Mood Description Calm Relaxed right\\ Pupil Reaction Reactive Pupil [place] Equal Scleral Edema No Left Pupil Reaction Reactive Pupil [place] Equal Scleral Edema No Art Objects Supervisor Strength Equal Push/Pull Equal Numbness/Tingling No Facial Symmetry Symmetrical Cardiovascular Assessment Signs and Symptoms None Heart Sounds S1 & S2 Pulse Rhythm Regular Jugular Vein Distention None Capillary Refill < 3 Seconds Circulatory Tenderness Description None Right Radial 2+ Left Radial 2+ Right Dorsalis Pedis 2+ Left Dorsalis Pedis 2+ Has Confirmed Diagnosis of DVT, PE or No VTE Mechanical Prophylaxis Yes Documentation of Mechanical Device Graduated compression elastic hosiery Mechanical Device Location Bilateral Lower Extremities Respiratory Assessment Respiratory Symptoms Shortness of Breath on Exertion Difficulty Clearing Secretions Dry Cough Effort Spontaneous Non-Labored Depth Normal Respiratory Pattern Regular Chest Shape Normal Expansion Symmetrical All Lung Burgess Clear Oxygen Delivery Method Room Air Cough Description Involuntary Non-Productive Moist Cough Frequency Intermittent Sputum Amount None Gastrointestinal Assessment Abdomen Description Flat Soft Non-Tender Nausea/Vomiting Presence None All Four Quadrants Active Flatus Presence Present Genitourinary Assessment Genitourinary Symptoms None Bladder Pattern Normal Voiding Method Bedside Commode Urine Appearance Clear Color Bright Yellow Bladder Distention None Suprapubic Tenderness with Palpation No Integumentary Assessment Fingernail Color Yellow Nail Bed Appearance Pale Temperature Warm Moisture Dry Turgor Normal Color Pale All Pressure Points Assessed Yes Evidence of Incision/Wounds/Breakdown No Mucous membranes moist, pink and intact Yes Oral Cavity Normal Musculoskeletal Assessment Musculoskeletal Symptoms Generalized Weakness Document 11/02/16 00:38 [facility] (Rec: 11/02/16 00:40 [facility] [id number]) Neurological Assessment Eye Opening Spontaneous Motor Obeys Commands Verbal Oriented Coma Scale Total 15 Neurologic Status Alert Patient Orientation Person Place Time Arousable To Name Speech Pattern Normal rate Normal rhythm Normal tone Appropriate Clear Patient Behavior Appropriate Cooperative Mood Description Calm Relaxed right\\ Pupil Reaction Reactive Pupil [place] Equal Scleral Edema No Left Pupil Reaction Reactive Pupil [place] Equal Scleral Edema No Art Objects Supervisor Strength Equal Push/Pull Equal Numbness/Tingling No Facial Symmetry Symmetrical Blink Present Cough/Gag Normal Cardiovascular Assessment Signs and Symptoms None Heart Sounds S1 & S2 Pulse Rhythm Regular Jugular Vein Distention None Capillary Refill < 3 Seconds Circulatory Tenderness Description None Right Radial 2+ Left Radial 2+ Right Dorsalis Pedis 2+ Left Dorsalis Pedis 2+ Chest Pain Complaint No Has Confirmed Diagnosis of DVT, PE or No VTE Mechanical Prophylaxis Yes Documentation of Mechanical Device Graduated compression elastic hosiery Mechanical Device Location Bilateral Lower Extremities Respiratory Assessment Respiratory Symptoms Shortness of Breath on Exertion Difficulty Clearing Secretions Dry Cough Effort Spontaneous Non-Labored Depth Normal Respiratory Pattern Regular Chest Shape Normal Expansion Symmetrical All Lung Burgess Clear Oxygen Delivery Method Room Air Cough Description Involuntary Non-Productive Moist Cough Frequency Intermittent Sputum Amount None Gastrointestinal Assessment Abdomen Description Flat Soft Non-Tender Nausea/Vomiting Presence None All Four Quadrants Active Flatus Presence Present Genitourinary Assessment Genitourinary Symptoms None Bladder Pattern Normal Voiding Method Bedside Commode Bladder Distention None Suprapubic Tenderness with Palpation No Integumentary Assessment Fingernail Color Yellow Nail Bed Appearance Pale Temperature Warm Moisture Dry Turgor Normal Color Pale All Pressure Points Assessed Yes Evidence of Incision/Wounds/Breakdown No Mucous membranes moist, pink and intact Yes Oral Cavity Normal Musculoskeletal Assessment Musculoskeletal Symptoms Generalized Weakness Document 11/02/16 08:20 [facility] (Rec: 11/02/16 16:39 [facility] [id number]) Pain Assessment Pain Present Reports No Pain Neurological Assessment Eye Opening Spontaneous Motor Obeys Commands Verbal Oriented Coma Scale Total 15 Neurologic Status Alert Patient Orientation Person Place Time Arousable To Name Speech Pattern Normal rate Normal rhythm Normal tone Appropriate Clear Patient Behavior Appropriate Cooperative Mood Description Calm Relaxed right\\ Pupil Reaction Reactive Pupil Size (mm) 4 Pupil [place] Equal Scleral Edema No Left Pupil Reaction Reactive Pupil [place] Equal Scleral Edema No Art Objects Supervisor Strength Equal Push/Pull Equal Numbness/Tingling No Facial Symmetry Symmetrical Corneal Reflex Present Bilateral Blink Present Cough/Gag Normal Babinski Reflex Absent Bilateral Doll's-Eye Absent Neurological Comment: a/o x3. Tongue midline. No facial asymmetry noted. Cardiovascular Assessment Signs and Symptoms None Heart Sounds S1 & S2 Pulse Rhythm Regular Jugular Vein Distention None Capillary Refill < 3 Seconds Circulatory Tenderness Description None Right Radial 2+ Left Radial 2+ Right Dorsalis Pedis 2+ Left Dorsalis Pedis 2+ Chest Pain Complaint No Has Confirmed Diagnosis of DVT, PE or No VTE VTE Prophylaxis Platelet Monitoring Contraindication Reason for not order Medical Contraindication VTE Prophylaxis Mechanical Prophylaxis No Reason Mechanical Device Not Applied Refused by patient Contraindication No VTE Prophylaxis Refused by patient Cardiac Monitoring Heart Rate 89 Monitoring Method Telemetry Rhythm Sinus Rhythm WY Interval .09 QRS Interval 0.07 QT Interval 0.34 Monitor Number [id number] Strip placed in Chart Yes Memory Cleared No Respiratory Assessment Respiratory Symptoms Shortness of Breath on Exertion Difficulty Clearing Secretions Effort Normal for Patient Spontaneous Non-Labored Depth Normal Respiratory Pattern Regular Chest Shape Normal Expansion Symmetrical All Lung Burgess Clear Oxygen Delivery Method Room Air Cough Description Voluntary Involuntary Non-Productive Cough Frequency Intermittent Sputum Amount None Respiratory Comment: Pt denies any issues at this time. Gastrointestinal Assessment Abdomen Description Flat Soft Non-Tender 3 or more loose stools, in less than 24 Yes: Have collected specimen hours but rejected by lab. Nausea/Vomiting Presence None GI Comment: Pt complains of diarrhea All Four Quadrants Active Flatus Presence Present Genitourinary Assessment Genitourinary Symptoms None Bladder Pattern Normal Bladder Distention None Suprapubic Tenderness with Palpation No Comment: No urine to assess at this time. Integumentary Assessment Fingernail Color Yellow Nail Bed Appearance Pale Temperature Warm Moisture Dry Turgor Normal Color Pale All Pressure Points Assessed Yes Evidence of Incision/Wounds/Breakdown No Mucous membranes moist, pink and intact Yes Oral Cavity Normal Integumentary Comment: scar below belly button healed from Musculoskeletal Assessment Musculoskeletal Symptoms Generalized Weakness Document 11/02/16 15:20 [facility] (Rec: 11/02/16 18:28 [facility] [id number]) Pain Assessment Pain Present Reports No Pain Neurological Assessment Eye Opening Spontaneous Motor Obeys Commands Verbal Oriented Coma Scale Total 15 Neurologic Status Alert Patient Orientation Person Place Time Arousable To Name Speech Pattern Normal rate Normal rhythm Normal tone Appropriate Clear Patient Behavior Appropriate Cooperative Fatigued Mood Description Calm Relaxed right\\ Pupil Reaction Reactive Pupil Size (mm) 4 Pupil [place] Equal Scleral Edema No Left Pupil Reaction Reactive Pupil [place] Equal Scleral Edema No Art Objects Supervisor Strength Equal Push/Pull Equal Numbness/Tingling No Facial Symmetry Symmetrical Corneal Reflex Present Bilateral Blink Present Cough/Gag Normal Babinski Reflex Absent Bilateral Doll's-Eye Absent Neurological Comment: a/o x3. Tongue midline. No facial asymmetry noted. Cardiovascular Assessment Signs and Symptoms None Heart Sounds S1 & S2 Pulse Rhythm Regular Jugular Vein Distention None Capillary Refill < 3 Seconds Circulatory Tenderness Description None Right Radial 2+ Left Radial 2+ Right Dorsalis Pedis 2+ Left Dorsalis Pedis 2+ Chest Pain Complaint No Has Confirmed Diagnosis of DVT, PE or No VTE VTE Prophylaxis Platelet Monitoring Contraindication Reason for not order Medical Contraindication VTE Prophylaxis Mechanical Prophylaxis No Reason Mechanical Device Not Applied Refused by patient Contraindication No VTE Prophylaxis Refused by patient Cardiac Monitoring Heart Rate 84 Monitoring Method Telemetry Rhythm Sinus Rhythm WY Interval 0.18 QRS Interval 0.07 QT Interval .34 Monitor Number [id number] Strip placed in Chart Yes Memory Cleared No Respiratory Assessment Respiratory Symptoms Shortness of Breath on Exertion Difficulty Clearing Secretions Effort Normal for Patient Spontaneous Non-Labored Depth Normal Respiratory Pattern Regular Chest Shape Normal Expansion Symmetrical All Lung Burgess Clear Oxygen Delivery Method Room Air Cough Description Voluntary Involuntary Non-Productive Cough Frequency Intermittent Sputum Amount None Respiratory Comment: Pt denies any issues at this time. Gastrointestinal Assessment Abdomen Description Flat Soft Non-Tender 3 or more loose stools, in less than 24 Yes: Have collected specimen hours but rejected by lab. Nausea/Vomiting Presence None GI Comment: Pt complains of diarrhea All Four Quadrants Active Flatus Presence Present Genitourinary Assessment Genitourinary Symptoms None Bladder Pattern Normal Voiding Method Bedside Commode Urine Appearance Clear Color Bright Yellow Bladder Distention None Suprapubic Tenderness with Palpation No Comment: No urine to assess at this time. Integumentary Assessment Fingernail Color Yellow Nail Bed Appearance Pale Temperature Warm Moisture Dry Turgor Normal Color Pale All Pressure Points Assessed Yes Evidence of Incision/Wounds/Breakdown No Mucous membranes moist, pink and intact Yes Oral Cavity Normal Integumentary Comment: scar below belly button healed from Musculoskeletal Assessment Musculoskeletal Symptoms Generalized Weakness Document 11/02/16 20:34 [facility] (Rec: 11/02/16 21:21 [facility] [id number]) Pain Assessment Pain Present Reports No Pain Neurological Assessment Eye Opening Spontaneous Motor Obeys Commands Verbal Oriented Coma Scale Total 15 Neurologic Status Alert Patient Orientation Person Place Time Arousable To Name Speech Pattern Normal rate Normal rhythm Normal tone Appropriate Clear Patient Behavior Appropriate Cooperative Mood Description Calm Relaxed right\\ Pupil Reaction Reactive Pupil Size (mm) 4 Pupil [place] Equal Scleral Edema No Left Pupil Reaction Reactive Pupil [place] Equal Scleral Edema No Art Objects Supervisor Strength Equal Push/Pull Equal Numbness/Tingling No Facial Symmetry Symmetrical Blink Present Cough/Gag Normal Cardiovascular Assessment Signs and Symptoms None Heart Sounds S1 & S2 Pulse Rhythm Regular Jugular Vein Distention None Capillary Refill < 3 Seconds Circulatory Tenderness Description None Right Radial 2+ Left Radial 2+ Right Dorsalis Pedis 2+ Left Dorsalis Pedis 2+ Chest Pain Complaint No Has Confirmed Diagnosis of DVT, PE or No VTE VTE Prophylaxis Platelet Monitoring Contraindication Reason for not order Medical Contraindication VTE Prophylaxis Mechanical Prophylaxis No Reason Mechanical Device Not Applied Refused by patient Contraindication No VTE Prophylaxis Refused by patient Cardiac Monitoring Monitor Number [id number] Respiratory Assessment Respiratory Symptoms Shortness of Breath on Exertion Difficulty Clearing Secretions Effort Normal for Patient Spontaneous Non-Labored Depth Normal Respiratory Pattern Regular Chest Shape Normal Expansion Symmetrical All Lung Burgess Clear Oxygen Delivery Method Room Air Cough Description Voluntary Involuntary Non-Productive Cough Frequency Intermittent Sputum Amount None Respiratory Comment: Pt denies any issues at this time. Gastrointestinal Assessment Abdomen Description Flat Soft Non-Tender 3 or more loose stools, in less than 24 Yes: Have collected specimen hours but rejected by lab. Nausea/Vomiting Presence None GI Comment: Pt complains of diarrhea blames antibiotics All Four Quadrants Active Flatus Presence Present Genitourinary Assessment Genitourinary Symptoms None Bladder Pattern Normal Voiding Method Bedside Commode Bladder Distention None Suprapubic Tenderness with Palpation No Comment: No urine to assess at this time. Integumentary Assessment Fingernail Color Yellow Nail Bed Appearance Pale Temperature Warm Moisture Dry Turgor Normal Color Pale All Pressure Points Assessed Yes Evidence of Incision/Wounds/Breakdown No Mucous membranes moist, pink and intact Yes Oral Cavity Normal Integumentary Comment: scar below belly button healed from Musculoskeletal Assessment Musculoskeletal Symptoms Generalized Weakness Document 11/03/16 02:34 [facility] (Rec: 11/03/16 02:36 [facility] [id number]) Pain Assessment Pain Present Reports No Pain Neurological Assessment Eye Opening Spontaneous Motor Obeys Commands Verbal Oriented Coma Scale Total 15 Neurologic Status Alert Patient Orientation Person Place Time Arousable To Name Speech Pattern Normal rate Normal rhythm Normal tone Appropriate Clear Patient Behavior Appropriate Cooperative Mood Description Calm Relaxed right\\ Pupil Reaction Reactive Pupil Size (mm) 4 Pupil [place] Equal Scleral Edema No Left Pupil Reaction Reactive Pupil [place] Equal Scleral Edema No Art Objects Supervisor Strength Equal Push/Pull Equal Numbness/Tingling No Facial Symmetry Symmetrical Blink Present Cardiovascular Assessment Signs and Symptoms None Heart Sounds S1 & S2 Pulse Rhythm Regular Jugular Vein Distention None Capillary Refill < 3 Seconds Circulatory Tenderness Description None Right Radial 2+ Left Radial 2+ Right Dorsalis Pedis 2+ Left Dorsalis Pedis 2+ Chest Pain Complaint No Has Confirmed Diagnosis of DVT, PE or No VTE VTE Prophylaxis Platelet Monitoring Contraindication Reason for not order Medical Contraindication VTE Prophylaxis Mechanical Prophylaxis No Reason Mechanical Device Not Applied Refused by patient Contraindication No VTE Prophylaxis Refused by patient Respiratory Assessment Respiratory Symptoms Shortness of Breath on Exertion Difficulty Clearing Secretions Effort Normal for Patient Spontaneous Non-Labored Depth Normal Respiratory Pattern Regular Chest Shape Normal Expansion Symmetrical All Lung Burgess Clear Oxygen Delivery Method Room Air Cough Description Voluntary Involuntary Non-Productive Cough Frequency Intermittent Sputum Amount None Respiratory Comment: Pt denies any issues at this time. Gastrointestinal Assessment Abdomen Description Flat Soft Non-Tender 3 or more loose stools, in less than 24 Yes: Have collected specimen hours but rejected by lab. Nausea/Vomiting Presence None GI Comment: Pt complains of diarrhea blames antibiotics All Four Quadrants Active Flatus Presence Present Genitourinary Assessment Genitourinary Symptoms None Bladder Pattern Normal Voiding Method Bedside Commode Bladder Distention None Suprapubic Tenderness with Palpation No Comment: No urine to assess at this time. Integumentary Assessment Fingernail Color Yellow Nail Bed Appearance Pale Temperature Warm Moisture Dry Turgor Normal Color Pale All Pressure Points Assessed Yes Evidence of Incision/Wounds/Breakdown No Mucous membranes moist, pink and intact Yes Oral Cavity Normal Integumentary Comment: scar below belly button healed from Musculoskeletal Assessment Musculoskeletal Symptoms Generalized Weakness Document 11/03/16 09:00 [facility] (Rec: 11/03/16 10:47 [facility] [id number]) Pain Assessment Pain Present Reports No Pain Head Pain Intensity 0 Scale Used Numeric (1 - 10) Neurological Assessment Eye Opening Spontaneous Motor Obeys Commands Verbal Oriented Coma Scale Total 15 Neurologic Status Alert Patient Orientation Person Place Time Arousable To Name Speech Pattern Normal rate Normal rhythm Normal tone Appropriate Clear Coherent Patient Behavior Appropriate Cooperative Mood Description Calm Relaxed Appropriate right\\ Pupil Reaction Reactive Pupil [place] Equal Scleral Edema No Left Pupil Reaction Reactive Pupil [place] Equal Scleral Edema No Art Objects Supervisor Strength Equal Push/Pull Equal Numbness/Tingling No Facial Symmetry Symmetrical Blink Present Cough/Gag Normal Babinski Reflex Absent Bilateral Cardiovascular Assessment Signs and Symptoms None Heart Sounds S1 & S2 Pulse Rhythm Regular Jugular Vein Distention None Capillary Refill < 3 Seconds Circulatory Tenderness Description None Right Radial 2+ Left Radial 2+ Right Dorsalis Pedis 2+ Left Dorsalis Pedis 2+ Chest Pain Complaint No Intensity (out of 10) 0 Has Confirmed Diagnosis of DVT, PE or No VTE VTE Prophylaxis Platelet Monitoring Contraindication Reason for not order Medical Contraindication VTE Prophylaxis Mechanical Prophylaxis No Reason Mechanical Device Not Applied Refused by patient Contraindication No VTE Prophylaxis Refused by patient Cardiac Monitoring Heart Rate 104 Monitoring Method Telemetry Rhythm Sinus Tachycardia WY Interval 0.12 QRS Interval 0.12 QT Interval 0.40 Monitor Number [id number] Respiratory Assessment Respiratory Symptoms Shortness of Breath on Exertion Difficulty Clearing Secretions Effort Normal for Patient Spontaneous Non-Labored Depth Normal Respiratory Pattern Regular Chest Shape Normal Expansion Symmetrical Right Upper Lobe Clear Right Middle Lobe Clear Right Lower Lobe Clear Left Upper Lobe Clear Left Lower Lobe Clear Right Upper Lobe Clear Right Middle Lobe Clear Right Lower Lobe Fine Crackles Left Upper Lobe Clear Left Lower Lobe Fine Crackles Oxygen Delivery Method Room Air Cough Description Voluntary Non-Productive Cough Frequency Intermittent Sputum Amount None Gastrointestinal Assessment Abdomen Description Flat Soft Non-Tender 3 or more loose stools, in less than 24 Yes: Have collected specimen hours but rejected by lab. Nausea/Vomiting Presence None GI Comment: Pt. reports having diarrhea yesterday and thinks it may be related to ATB. Pt. denies any diarrhea today. All Four Quadrants Active Flatus Presence Present Genitourinary Assessment Genitourinary Symptoms None Bladder Pattern Normal Voiding Method Bedside Commode Bladder Distention None Suprapubic Tenderness with Palpation No Comment: No urine to assess at this time. Integumentary Assessment Nail Bed Appearance Pale Temperature Warm Moisture Dry Turgor Normal Color Pale All Pressure Points Assessed Yes Evidence of Incision/Wounds/Breakdown No Mucous membranes moist, pink and intact Yes Oral Cavity Normal Integumentary Comment: scar below belly button Musculoskeletal Assessment Musculoskeletal Symptoms Generalized Weakness Document 11/03/16 17:00 [facility] (Rec: 11/03/16 18:35 [facility] [id number]) Pain Assessment Pain Present Reports No Pain Head Pain Intensity 0 Scale Used Numeric (1 - 10) Neurological Assessment Eye Opening Spontaneous Motor Obeys Commands Verbal Oriented Coma Scale Total 15 Neurologic Status Alert Patient Orientation Person Place Time Arousable To Name Speech Pattern Normal rate Normal rhythm Normal tone Appropriate Clear Coherent Patient Behavior Appropriate Cooperative Fatigued Mood Description Calm Relaxed Appropriate right\\ Pupil Reaction Reactive Pupil [place] Equal Scleral Edema No Left Pupil Reaction Reactive Pupil [place] Equal Scleral Edema No Art Objects Supervisor Strength Equal Push/Pull Equal Numbness/Tingling No Facial Symmetry Symmetrical Blink Present Cough/Gag Normal Cardiovascular Assessment Signs and Symptoms None Heart Sounds S1 & S2 Pulse Rhythm Regular Jugular Vein Distention None Capillary Refill < 3 Seconds Circulatory Tenderness Description None Right Radial 2+ Left Radial 2+ Right Dorsalis Pedis 2+ Left Dorsalis Pedis 2+ Chest Pain Complaint No Intensity (out of 10) 0 Has Confirmed Diagnosis of DVT, PE or No VTE VTE Prophylaxis Platelet Monitoring Contraindication Reason for not order Medical Contraindication VTE Prophylaxis Mechanical Prophylaxis No Reason Mechanical Device Not Applied Refused by patient Contraindication No VTE Prophylaxis Refused by patient Cardiac Monitoring Heart Rate 79 Monitoring Method Telemetry Rhythm Sinus Rhythm [place] Interval 0.14 QRS Interval 0.10 QT Interval 0.39 Monitor Number [id number] Respiratory Assessment Respiratory Symptoms Shortness of Breath on Exertion Difficulty Clearing Secretions Effort Normal for Patient Spontaneous Non-Labored Depth Normal Respiratory Pattern Regular Chest Shape Normal Expansion Symmetrical Right Upper Lobe Clear Right Middle Lobe Clear Right Lower Lobe Clear Left Upper Lobe Clear Left Lower Lobe Clear Right Upper Lobe Clear Right Middle Lobe Clear Right Lower Lobe Clear Left Upper Lobe Clear Left Lower Lobe Fine Crackles Oxygen Delivery Method Room Air Cough Description None Sputum Amount None Respiratory Comment: Pt denies any issues at this time. Gastrointestinal Assessment Abdomen Description Flat Soft Non-Tender 3 or more loose stools, in less than 24 No hours Nausea/Vomiting Presence None All Four Quadrants Active Flatus Presence Present Genitourinary Assessment Genitourinary Symptoms None Bladder Pattern Normal Voiding Method Bedside Commode Urine Appearance Clear Color Pale Bladder Distention None Suprapubic Tenderness with Palpation No Integumentary Assessment Nail Bed Appearance Pale Temperature Warm Moisture Dry Turgor Normal Color Pale All Pressure Points Assessed Yes Evidence of Incision/Wounds/Breakdown No Mucous membranes moist, pink and intact Yes Oral Cavity Normal Integumentary Comment: scar below belly button Musculoskeletal Assessment Musculoskeletal Symptoms Generalized Weakness Document 11/03/16 21:00 [id number] (Rec: 11/03/16 23:44 [id number]) Pain Assessment Pain Present Reports No Pain Head Scale Used Numeric (1 - 10) Neurological Assessment Eye Opening Spontaneous Motor Obeys Commands Verbal Oriented Coma Scale Total 15 Neurologic Status Alert Patient Orientation Person Place Time Arousable To Name Speech Pattern Normal rate Normal rhythm Normal tone Appropriate Clear Coherent Patient Behavior Appropriate Cooperative Fatigued Mood Description Calm Relaxed Appropriate right\\ Pupil Reaction Reactive Pupil [place] Equal Scleral Edema No Left Pupil Reaction Reactive Pupil [place] Equal Scleral Edema No Art Objects Supervisor Strength Equal Push/Pull Equal Numbness/Tingling No Facial Symmetry Symmetrical Cardiovascular Assessment Signs and Symptoms None Heart Sounds S1 & S2 Pulse Rhythm Regular Jugular Vein Distention None Capillary Refill < 3 Seconds Circulatory Tenderness Description None Right Radial 2+ Left Radial 2+ Right Dorsalis Pedis 2+ Left Dorsalis Pedis 2+ Has Confirmed Diagnosis of DVT, PE or No VTE VTE Prophylaxis Platelet Monitoring Contraindication Reason for not order Medical Contraindication VTE Prophylaxis Mechanical Prophylaxis No Cardiac Monitoring Heart Rate 75 Monitoring Method Telemetry Rhythm Sinus Rhythm WY Interval 0.04 QRS Interval 0.30 QT Interval 0.10 Monitor Number [id number] Strip placed in Chart Yes Monitor History Reviewed Yes Memory Cleared No Respiratory Assessment Respiratory Symptoms Shortness of Breath on Exertion Difficulty Clearing Secretions Effort Normal for Patient Spontaneous Non-Labored Depth Normal Respiratory Pattern Regular Chest Shape Normal Expansion Symmetrical All Lung Burgess Clear Oxygen Delivery Method Room Air Cough Description Voluntary None Cough Frequency Intermittent Sputum Amount None Gastrointestinal Assessment Abdomen Description Flat Soft Non-Tender 3 or more loose stools, in less than 24 No hours Nausea/Vomiting Presence None All Four Quadrants Active Flatus Presence Present Genitourinary Assessment Genitourinary Symptoms None Bladder Pattern Normal Voiding Method Bedside Commode Urine Appearance Clear Color Pale Straw Odor Normal Bladder Distention None Suprapubic Tenderness with Palpation No Integumentary Assessment Fingernail Color Yellow Nail Bed Appearance Pale Temperature Warm Moisture Dry Turgor Normal Color Pale All Pressure Points Assessed Yes Evidence of Incision/Wounds/Breakdown No Mucous membranes moist, pink and intact Yes Oral Cavity Normal Musculoskeletal Assessment Musculoskeletal Symptoms Generalized Weakness Document 11/04/16 00:04 [id number] (Rec: 11/04/16 00:39 [id number]) Cardiovascular Assessment Has Confirmed Diagnosis of DVT, PE or No VTE VTE Prophylaxis IV Treatment Mechanical Prophylaxis Yes Documentation of Mechanical Device Intermittent pneumatic compression device Mechanical Device Location Bilateral Lower Extremities Contraindication No VTE Prophylaxis Refused by patient Cardiac Monitoring Heart Rate 67 Monitoring Method Telemetry Rhythm Sinus Rhythm WY Interval 0.11 QRS Interval 0.04 QT Interval 0.28 Monitor Number [id number] Strip placed in Chart Yes Monitor History Reviewed Yes Memory Cleared No Document 11/04/16 03:00 [id number] (Rec: 11/04/16 03:24 [id number]) Pain Assessment Pain Present Reports Pain Neurological Assessment Eye Opening Spontaneous Motor Obeys Commands Verbal Oriented Coma Scale Total 15 Neurologic Status Alert Patient Orientation Person Place Time Arousable To Name Speech Pattern Normal rate Normal rhythm Normal tone Appropriate Clear Coherent Patient Behavior Appropriate Cooperative Fatigued Mood Description Calm Relaxed Appropriate right\\ Pupil Reaction Reactive Pupil [place] Equal Scleral Edema No Left Pupil Reaction Reactive Pupil [place] Equal Scleral Edema No Art Objects Supervisor Strength Equal Push/Pull Equal Numbness/Tingling No Facial Symmetry Symmetrical Cardiovascular Assessment Signs and Symptoms None Heart Sounds S1 & S2 Pulse Rhythm Regular Jugular Vein Distention None Capillary Refill < 3 Seconds Circulatory Tenderness Description None Right Radial 2+ Left Radial 2+ Right Dorsalis Pedis 2+ Left Dorsalis Pedis 2+ Has Confirmed Diagnosis of DVT, PE or No VTE VTE Prophylaxis IV Treatment Contraindication Reason for not order Medical Contraindication VTE Prophylaxis Mechanical Prophylaxis Yes Documentation of Mechanical Device Intermittent pneumatic compression device Mechanical Device Location Bilateral Lower Extremities Contraindication No VTE Prophylaxis Refused by patient Cardiac Monitoring Heart Rate 84 Monitoring Method Telemetry Rhythm Sinus Rhythm WY Interval 0.12 QRS Interval 0.07 QT Interval 0.27 Monitor Number [id number] Strip placed in Chart Yes Monitor History Reviewed Yes Memory Cleared No Respiratory Assessment Respiratory Symptoms Shortness of Breath on Exertion Difficulty Clearing Secretions Effort Normal for Patient Spontaneous Non-Labored Depth Normal Respiratory Pattern Regular Chest Shape Normal Expansion Symmetrical All Lung Burgess Clear Oxygen Delivery Method Room Air Cough Description Voluntary None Cough Frequency Intermittent Sputum Amount None Gastrointestinal Assessment Abdomen Description Flat Soft Non-Tender 3 or more loose stools, in less than 24 No hours Nausea/Vomiting Presence None All Four Quadrants Active Genitourinary Assessment Genitourinary Symptoms None Bladder Pattern Normal Voiding Method Bedside Commode Urine Appearance Clear Color Pale Straw Odor Normal Bladder Distention None Suprapubic Tenderness with Palpation No Integumentary Assessment Fingernail Color Yellow Nail Bed Appearance Pale Temperature Warm Moisture Dry Turgor Normal Color Pale All Pressure Points Assessed Yes Evidence of Incision/Wounds/Breakdown No Mucous membranes moist, pink and intact Yes Oral Cavity Normal Musculoskeletal Assessment Musculoskeletal Symptoms Generalized Weakness Document 11/04/16 09:00 JLR (Rec: 11/04/16 10:38 JLR [id number]) Pain Assessment Pain Present Reports No Pain Head Pain Intensity 0 Scale Used Numeric (1 - 10) Neurological Assessment Eye Opening Spontaneous Motor Obeys Commands Verbal Oriented Coma Scale Total 15 Neurologic Status Alert Patient Orientation Person Place Time Arousable To Name Speech Pattern Normal rate Normal rhythm Normal tone Appropriate Clear Coherent Patient Behavior Appropriate Cooperative Fatigued Mood Description Calm Relaxed Appropriate right\\ Pupil Reaction Reactive Pupil [place] Equal Scleral Edema No Left Pupil Reaction Reactive Pupil [place] Equal Scleral Edema No Art Objects Supervisor Strength Equal Push/Pull Equal Numbness/Tingling No Facial Symmetry Symmetrical Blink Present Cough/Gag Normal Cardiovascular Assessment Signs and Symptoms None Heart Sounds S1 & S2 Pulse Rhythm Regular Jugular Vein Distention None Capillary Refill < 3 Seconds Circulatory Tenderness Description None Right Radial 2+ Left Radial 2+ Right Dorsalis Pedis 2+ Left Dorsalis Pedis 2+ Chest Pain Complaint No Intensity (out of 10) 0 Has Confirmed Diagnosis of DVT, PE or No VTE Mechanical Prophylaxis Yes Documentation of Mechanical Device Intermittent pneumatic compression device Mechanical Device Location Bilateral Lower Extremities Contraindication No VTE Prophylaxis Refused by patient Cardiac Monitoring Heart Rate 84 Monitoring Method Telemetry Rhythm Sinus Rhythm W[place] Interval 0.12 QRS Interval 0.10 QT Interval 0.40 Monitor Number [id number] Strip placed in Chart Yes Monitor History Reviewed Yes Memory Cleared No Respiratory Assessment Respiratory Symptoms Difficulty Clearing Secretions Effort Normal for Patient Spontaneous Non-Labored Depth Normal Respiratory Pattern Regular Chest Shape Normal Expansion Symmetrical Right Upper Lobe Clear Right Middle Lobe Clear Right Lower Lobe Clear Left Upper Lobe Clear Left Lower Lobe Clear Right Upper Lobe Clear Right Middle Lobe Clear Right Lower Lobe Fine Crackles Left Upper Lobe Clear Left Lower Lobe Fine Crackles Oxygen Delivery Method Room Air Cough Description Voluntary None Cough Frequency Intermittent Sputum Amount None Gastrointestinal Assessment Abdomen Description Flat Soft Non-Tender 3 or more loose stools, in less than 24 No hours Nausea/Vomiting Presence None All Four Quadrants Active Flatus Presence Present Genitourinary Assessment Genitourinary Symptoms None Bladder Pattern Normal Voiding Method Bedside Commode Odor Normal Bladder Distention None Suprapubic Tenderness with Palpation No Comment: No urine to assess at this time. Integumentary Assessment Nail Bed Appearance Pale Temperature Warm Moisture Dry Turgor Normal Color Pale All Pressure Points Assessed Yes Evidence of Incision/Wounds/Breakdown No Mucous membranes moist, pink and intact Yes Oral Cavity Normal Integumentary Comment: scar below belly button; has a visible knot on spine Musculoskeletal Assessment Musculoskeletal Symptoms Generalized Weakness Document 11/04/16 15:34 JLR (Rec: 11/04/16 15:39 JLR [id number]) Pain Assessment Pain Present Reports No Pain Head Pain Intensity 0 Scale Used Numeric (1 - 10) Neurological Assessment Eye Opening Spontaneous Motor Obeys Commands Verbal Oriented Coma Scale Total 15 Neurologic Status Alert Patient Orientation Person Place Time Arousable To Name Speech Pattern Normal rate Normal rhythm Normal tone Appropriate Clear Coherent Patient Behavior Crying Fatigued Mood Description Anxious right\\ Pupil Reaction Reactive Pupil [place] Equal Scleral Edema No Left Pupil Reaction Reactive Pupil [place] Equal Scleral Edema No Art Objects Supervisor Strength Equal Push/Pull Equal Numbness/Tingling No Facial Symmetry Symmetrical Blink Present Cough/Gag Normal Cardiovascular Assessment Signs and Symptoms Hypertension Weakness of Extremities Heart Sounds S1 & S2 Pulse Rhythm Regular Jugular Vein Distention None Capillary Refill < 3 Seconds Circulatory Tenderness Description None Right Radial 2+ Left Radial 2+ Right Dorsalis Pedis 2+ Left Dorsalis Pedis 2+ Chest Pain Complaint No Intensity (out of 10) 0 Has Confirmed Diagnosis of DVT, PE or No VTE VTE Prophylaxis IV Treatment Contraindication Reason for not order Medical Contraindication VTE Prophylaxis Mechanical Prophylaxis Yes Documentation of Mechanical Device Intermittent pneumatic compression device Mechanical Device Location Bilateral Lower Extremities Contraindication No VTE Prophylaxis Refused by patient Cardiac Monitoring Heart Rate 78 Monitoring Method Telemetry Rhythm Sinus Rhythm W[place] Interval 0.13 QRS Interval 0.11 QT Interval 0.41 Monitor Number [id number] Strip placed in Chart Yes Memory Cleared No Respiratory Assessment Respiratory Symptoms Difficulty Clearing Secretions Effort Normal for Patient Spontaneous Non-Labored Depth Normal Respiratory Pattern Regular Chest Shape Normal Expansion Symmetrical All Lung Burg[place] Clear Oxygen Delivery Method Room Air Cough Description Voluntary Non-Productive Cough Frequency Intermittent Sputum Amount None Gastrointestinal Assessment Abdomen Description Flat Soft Non-Tender 3 or more loose stools, in less than 24 No hours Nausea/Vomiting Presence None All Four Quadrants Active Flatus Presence Present Genitourinary Assessment Genitourinary Symptoms None Bladder Pattern Normal Voiding Method Bedside Commode Urine Appearance Clear Color Pale Odor Normal Bladder Distention None Suprapubic Tenderness with Palpation No Integumentary Assessment Nail Bed Appearance Pale Temperature Warm Moisture Dry Turgor Normal Color Pale All Pressure Points Assessed Yes Evidence of Incision/Wounds/Breakdown No Mucous membranes moist, pink and intact Yes Oral Cavity Normal Integumentary Comment: scar below belly button; has a visible knot on spine Musculoskeletal Assessment Musculoskeletal Symptoms Generalized Weakness Document 11/04/16 19:00 [id number] (Rec: 11/04/16 20:01 [id number]) Pain Assessment Pain Present Reports No Pain Neurological Assessment Eye Opening Spontaneous Motor Obeys Commands Verbal Oriented Coma Scale Total 15 Neurologic Status Alert Patient Orientation Person Place Time Arousable To Name Speech Pattern Normal rate Normal rhythm Normal tone Appropriate Clear Coherent Patient Behavior Crying Fatigued Mood Description Anxious right\\ Pupil Reaction Reactive Pupil [place] Equal Scleral Edema No Left Pupil Reaction Reactive Pupil [place] Equal Scleral Edema No Art Objects Supervisor Strength Equal Push/Pull Equal Numbness/Tingling No Facial Symmetry Symmetrical Cardiovascular Assessment Signs and Symptoms Hypertension Weakness of Extremities Heart Sounds S1 & S2 Pulse Rhythm Regular Jugular Vein Distention None Capillary Refill < 3 Seconds Circulatory Tenderness Description None Right Radial 2+ Left Radial 2+ Right Dorsalis Pedis 2+ Left Dorsalis Pedis 2+ Has Confirmed Diagnosis of DVT, PE or No VTE VTE Prophylaxis IV Treatment Contraindication Reason for not order Medical Contraindication VTE Prophylaxis Mechanical Prophylaxis Yes Documentation of Mechanical Device Intermittent pneumatic compression device Mechanical Device Location Bilateral Lower Extremities Contraindication No VTE Prophylaxis Refused by patient Cardiac Monitoring Heart Rate 72 Monitoring Method Telemetry Rhythm Sinus Rhythm Monitor Number [id number] Strip placed in Chart Yes Monitor History Reviewed Yes Memory Cleared No Respiratory Assessment Respiratory Symptoms Difficulty Clearing Secretions Effort Normal for Patient Spontaneous Non-Labored Depth Normal Respiratory Pattern Regular Chest Shape Normal Expansion Symmetrical All Lung Burgess Clear Oxygen Delivery Method Room Air Cough Description Voluntary Non-Productive Cough Frequency Intermittent Sputum Amount None Gastrointestinal Assessment Abdomen Description Flat Soft Non-Tender 3 or more loose stools, in less than 24 No hours Nausea/Vomiting Presence None All Four Quadrants Active Flatus Presence Present Genitourinary Assessment Genitourinary Symptoms None Bladder Pattern Normal Voiding Method Bedside Commode Urine Appearance Clear Color Pale Odor Normal Bladder Distention None Suprapubic Tenderness with Palpation No Integumentary Assessment Fingernail Color Yellow Nail Bed Appearance Pale Temperature Warm Moisture Dry Turgor Normal Color Pale All Pressure Points Assessed Yes Evidence of Incision/Wounds/Breakdown No Mucous membranes moist, pink and intact Yes Oral Cavity Normal Musculoskeletal Assessment Musculoskeletal Symptoms Generalized Weakness Document 11/04/16 19:57 [id number] (Rec: 11/05/16 04:51 [id number]) Cardiovascular Assessment Has Confirmed Diagnosis of DVT, PE or No VTE VTE Prophylaxis IV Treatment Contraindication Reason for not order Medical Contraindication VTE Prophylaxis Mechanical Prophylaxis Yes Documentation of Mechanical Device Intermittent pneumatic compression device Mechanical Device Location Bilateral Lower Extremities Contraindication No VTE Prophylaxis Refused by patient Cardiac Monitoring Heart Rate 72 Monitoring Method Telemetry Rhythm Sinus Rhythm [place] Interval 0.11 QRS Interval 0.06 QT Interval 0.25 Monitor Number [id number] Strip placed in Chart Yes Monitor History Reviewed Yes Memory Cleared No Document 11/04/16 23:17 [id number] (Rec: 11/05/16 04:53 [id number]) Cardiovascular Assessment Has Confirmed Diagnosis of DVT, PE or No VTE VTE Prophylaxis IV Treatment Contraindication Reason for not order Medical Contraindication VTE Prophylaxis Mechanical Prophylaxis Yes Documentation of Mechanical Device Graduated compression elastic hosiery Mechanical Device Location Bilateral Lower Extremities Contraindication No VTE Prophylaxis Refused by patient Cardiac Monitoring Heart Rate 71 Monitoring Method Telemetry Rhythm Sinus Rhythm W[place] Interval 0.11 QRS Interval 0.06 QT Interval 0.25 Monitor Number [id number] Strip placed in Chart Yes Monitor History Reviewed Yes Memory Cleared No Document 11/05/16 02:00 [id number] (Rec: 11/05/16 03:01 [id number]) Pain Assessment Pain Present Reports No Pain Neurological Assessment Eye Opening Spontaneous Motor Obeys Commands Verbal Oriented Coma Scale Total 15 Neurologic Status Alert Patient Orientation Person Place Time Arousable To Name Speech Pattern Normal rate Normal rhythm Normal tone Appropriate Clear Coherent Patient Behavior Crying Fatigued Mood Description Anxious right\\ Pupil Reaction Reactive Pupil [place] Equal Scleral Edema No Left Pupil Reaction Reactive Pupil [place] Equal Scleral Edema No Art Objects Supervisor Strength Equal Push/Pull Equal Numbness/Tingling No Facial Symmetry Symmetrical Cardiovascular Assessment Signs and Symptoms Hypertension Weakness of Extremities Heart Sounds S1 & S2 Pulse Rhythm Regular Jugular Vein Distention None Capillary Refill < 3 Seconds Circulatory Tenderness Description None Right Radial 2+ Left Radial 2+ Right Dorsalis Pedis 2+ Left Dorsalis Pedis 2+ Has Confirmed Diagnosis of DVT, PE or No VTE VTE Prophylaxis IV Treatment Contraindication Reason for not order Medical Contraindication VTE Prophylaxis Mechanical Prophylaxis Yes Documentation of Mechanical Device Graduated compression elastic hosiery Mechanical Device Location Bilateral Lower Extremities Cardiac Monitoring Heart Rate 73 Monitoring Method Telemetry Rhythm Sinus Rhythm Monitor Number [id number] Strip placed in Chart Yes Monitor History Reviewed Yes Memory Cleared No Respiratory Assessment Respiratory Symptoms Difficulty Clearing Secretions Effort Normal for Patient Spontaneous Non-Labored Depth Normal Respiratory Pattern Regular Chest Shape Normal Expansion Symmetrical All Lung Burgess Clear Oxygen Delivery Method Room Air Cough Description Voluntary Non-Productive Cough Frequency Intermittent Sputum Amount None Gastrointestinal Assessment Abdomen Description Flat Soft Non-Tender 3 or more loose stools, in less than 24 No hours Nausea/Vomiting Presence None All Four Quadrants Active Flatus Presence Present Genitourinary Assessment Genitourinary Symptoms None Bladder Pattern Normal Voiding Method Bedside Commode Urine Appearance Clear Color Straw Odor Normal Bladder Distention None Suprapubic Tenderness with Palpation No Integumentary Assessment Fingernail Color Yellow Nail Bed Appearance Pale Temperature Warm Moisture Dry Turgor Normal Color Pale All Pressure Points Assessed Yes Evidence of Incision/Wounds/Breakdown No Mucous membranes moist, pink and intact Yes Oral Cavity Normal Musculoskeletal Assessment Musculoskeletal Symptoms Generalized Weakness Document 11/05/16 03:23 [id number] (Rec: 11/05/16 04:54 [id number]) Cardiovascular Assessment Has Confirmed Diagnosis of DVT, PE or No VTE Mechanical Prophylaxis Yes Documentation of Mechanical Device Graduated compression elastic hosiery Mechanical Device Location Bilateral Lower Extremities Contraindication No VTE Prophylaxis Refused by patient Cardiac Monitoring Heart Rate 83 Monitoring Method Telemetry Rhythm Sinus Rhythm W[place] Interval 0.11 QRS Interval 0.06 QT Interval 0.25 Monitor Number [id number] Strip placed in Chart Yes Monitor History Reviewed Yes Memory Cleared No Document 11/05/16 09:20 MED (Rec: 11/05/16 13:22 [id number] Pain Assessment Pain Present Reports No Pain Neurological Assessment Eye Opening Spontaneous Motor Obeys Commands Verbal Oriented Coma Scale Total 15 Neurologic Status Alert Patient Orientation Person Place Time Arousable To Name Speech Pattern Normal rate Normal rhythm Normal tone Appropriate Clear Coherent Patient Behavior Crying Fatigued Mood Description Anxious right\\ Pupil Reaction Reactive Pupil [place] Equal Scleral Edema No Left Pupil Reaction Reactive Pupil [place] Equal Scleral Edema No Art Objects Supervisor Strength Equal Push/Pull Equal Numbness/Tingling No Facial Symmetry Symmetrical Cough/Gag Normal Doll's-Eye Absent Cardiovascular Assessment Signs and Symptoms Hypertension Weakness of Extremities Heart Sounds S1 & S2 Pulse Rhythm Regular Jugular Vein Distention None Capillary Refill < 3 Seconds Circulatory Tenderness Description None Right Radial 2+ Left Radial 2+ Right Dorsalis Pedis 2+ Left Dorsalis Pedis 2+ Chest Pain Complaint No Intensity (out of 10) 0 Has Confirmed Diagnosis of DVT, PE or No VTE Contraindication Reason for not order Medical Contraindication VTE Prophylaxis Mechanical Prophylaxis Yes Documentation of Mechanical Device Graduated compression elastic hosiery Mechanical Device Location Bilateral Lower Extremities Cardiac Monitoring Monitor Number [id number] Strip placed in Chart Yes Monitor History Reviewed Yes Memory Cleared No Respiratory Assessment Respiratory Symptoms Difficulty Clearing Secretions Effort Normal for Patient Spontaneous Non-Labored Depth Normal Respiratory Pattern Regular Chest Shape Normal Expansion Symmetrical All Lung Burgess Clear Right Upper Lobe Clear Right Middle Lobe Clear Right Lower Lobe Clear Left Upper Lobe Clear Left Lower Lobe Clear Right Upper Lobe Clear Right Middle Lobe Clear Right Lower Lobe Clear Left Upper Lobe Clear Left Lower Lobe Clear Oxygen Delivery Method Room Air Cough Description Voluntary Non-Productive Cough Frequency Intermittent Sputum Amount None Respiratory Comment: . Gastrointestinal Assessment Abdomen Description Flat Soft Non-Tender 3 or more loose stools, in less than 24 No hours Nausea/Vomiting Presence None GI Comment: . All Four Quadrants Active Flatus Presence Present Genitourinary Assessment Genitourinary Symptoms None Bladder Pattern Normal Voiding Method Bedside Commode Bladder Distention None Suprapubic Tenderness with Palpation No Integumentary Assessment Fingernail Color Yellow Nail Bed Appearance Pale Temperature Warm Moisture Dry Turgor Normal Color Pale All Pressure Points Assessed Yes Evidence of Incision/Wounds/Breakdown No Mucous membranes moist, pink and intact Yes Oral Cavity Normal Musculoskeletal Assessment Musculoskeletal Symptoms Generalized Weakness Teaching Record Start: 10/30/16 23: 59 Text: Status: Discharge Freq: Q12H Document 10/31/16 00:30 [id number] (Rec: 10/31/16 01:53 [id number]) Teaching Record: General Education Topics Hospital Environment Response Verbalize understanding Methods Discussion Recipient Patient Document 10/31/16 08:29 [id number] (Rec: 10/31/16 08:34 [id number]) Teaching Record: General Education Topics Medications Hospital Environment Response Verbalize understanding Methods Discussion Recipient Patient Document 10/31/16 20:45 [id number] (Rec: 10/31/16 23:27 [id number]) Teaching Record: General Education Topics Medications Response Verbalize understanding Methods Discussion Recipient Patient Education Provided: Details educated pt on evening medications Document 11/01/16 10:08 H[facility] (Rec: 11/01/16 10:14 [id number] Teaching Record: General Response Verbalize understanding Methods Discussion Recipient Patient Education Provided: Details EDUCATED PATIENT ON IV INSERTION AND MAINTENANCE. Document 11/01/16 21:15 [facility] (Rec: 11/01/16 23:17 [facility]-[id number]) Teaching Record: General Education Topics Medications Response Verbalize understanding Methods Discussion Recipient Patient Document 11/02/16 08:20 WDT (Rec: 11/02/16 16:39 WDT [id number]) Teaching Record: General Education Topics Medications Equipment Use Pertinence Pneumonia Response Verbalize understanding Recipient Patient Education Provided: Details PT educated to medications, poc, and use of IS Document 11/02/16 20:34 [facility] [place] (Rec: 11/02/16 21:21 [id number] Teaching Record: General Education Topics Medications Response Verbalize understanding Recipient Patient Education Provided: Details PM medications Document 11/03/16 09:00 JLR (Rec: 11/03/16 10:47 JLR [id number]) Teaching Record: General Education Topics Medications Discharge Instructions Equipment Use Response Verbalize understanding Methods Discussion Recipient Patient Education Provided: Details Pt. educated on all medications and uses. Pt. inquired about discharge today and this RN told patient I would find out for her. Pt. educated on use of call light for any needs. Will continue to monitor. Document 11/03/16 21:00 [id number] (Rec: 11/03/16 23:44 [id number]) Teaching Record: General Education Topics Disease Process Hospital Environment Response Verbalize understanding Recipient Patient Education Provided: Details Pt edu on use of IS and calling for help when needed. 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 Document 11/05/16 09:20 MED (Rec: 11/05/16 13:22 MED [id number]) Teaching Record: General Education Topics Medications Disease Process Exercise/Activity Education Provided: Details DISCUSSED MEDICATIONS, POC, PLAND FOR DISCHARGE TODAY Thrombosis Risk Factor Assessment Start: 10/30/16 23: 59 Freq: .ONCE Status: Complete Document 10/31/16 00:57 [id number] (Rec: 10/31/16 01:07 [id number]) Thrombosis Risk Factor Assessment Other Risk Factors No Each Risk Factor Represents 3 Points Age over 75 years Other congenital or acquired No thrombophilia - If yes, enter Type in comment Total Risk Factor Score 3 Risk Level Higher Risk Triage Start: 10/30/16 19: 25 Freq: Status: Discharge Document 10/30/16 19:26 BAS (Rec: 10/30/16 19:29 BAS [id number]) Triage Chief Complaint triage ED Weakness Patient Stated Complaint generalized weakness BABAR 3 Onset (ago) month(s) General Appearance alert in no apparent distress Work Related Injury? No Mode of arrival EMS Arrival via EMS medic 4 Source patient EMS Limitations no limitations Ebola Risk: Travel/Contact With Anyone No From Affected Area/s Has Patient Experienced Ebola Symptoms No Temperature (97.6 F-99.6 F) 99.0 F Pulse Rate (beats/min) 120 Respiratory Rate (breaths/min) 28 Blood Pressure (mm Hg) 152/81 O2 Sat by Pulse Oximetry (95-100 %) 96 Oxygen Delivery Room Air Height 1.47 m Weight 94 kg Weight Measurement Method Stated by Patient Pain Scale 0 Pain Scale Used Standard (1-10) Medical history hypertension thyroid disease Female surgical history cholecystectomy Psychiatric history anxiety Smoking Status Never smoker Smokeless Tobacco Status No Alcohol Use none Drug Use none Patient resides with/at Spouse Safety Concerns Feels Safe At This Time Do you currently feel hopless, have No thoughts of self harm, or thoughts of harming others History of fall in last 14 days? 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 Vital Signs Assessment Start: 10/30/16 19: 25 Freq: Status: Discharge Document 10/30/16 20:00 [facility] (Rec: 10/30/16 20:23 [id number] Vital Signs Pain Reported No Pain Reported Pain Scale 0 Pain Scale Used Standard (1-10) Blood Pressure (mm Hg) 150/68 Pulse Rate (beats/min) 112 Respiratory Rate (breaths/min) 24 Pulse Oximetry (95-100 %) 96 Oxygen Delivery Room Air Document 10/30/16 21:00 [facility] (Rec: 10/30/16 21:13 [id number] ED Vital Signs Pain Reported Pain Reported Pain Scale 4 Pain Scale Used Standard (1-10) Blood Pressure (mm Hg) 131/57 Pulse Rate (beats/min) 112 Respiratory Rate (breaths/min) 24 Pulse Oximetry (95-100 %) 96 Oxygen Delivery Room Air Document 10/30/16 21:30 BAS (Rec: 10/30/16 21:59 [id number] ED Vital Signs Pain Reported Pain Reported Pain Scale 4 Pain Scale Used Standard (1-10) Blood Pressure (mm Hg) 134/52 Pulse Rate (beats/min) 108 Respiratory Rate (breaths/min) 22 Pulse Oximetry (95-100 %) 95 Document 10/30/16 22:00 [facility] (Rec: 10/30/16 22:44 [id number] ED Vital Signs Pain Reported Pain Reported Pain Scale 2 Pain Scale Used Standard (1-10) Blood Pressure (mm Hg) 142/64 Pulse Rate (beats/min) 108 Respiratory Rate (breaths/min) 20 Pulse Oximetry (95-100 %) 97 Oxygen Delivery Room Air Document 10/30/16 23:37 [facility] (Rec: 10/30/16 23:37 [id number] ED Vital Signs Pain Reported No Pain Reported Blood Pressure (mm Hg) 130/58 Pulse Rate (beats/min) 103 Respiratory Rate (breaths/min) 16 Pulse Oximetry (95-100 %) 98 Oxygen Delivery Room Air Vital Signs Assessment Start: 10/30/16 23: 59 Freq: Q4H Status: Discharge Document 10/31/16 00:49 LMO (Rec: 10/31/16 00:56 LMO [id number]) Vital Signs with MEWS Temperature (97.6 F-99.6 F) 98.1 F Temperature Source Oral Pulse Rate (beats/min) 101 Respiratory Rate (breaths/min) 14 Pulse Oximetry (95-100 %) 95 Oxygen Delivery Room Air Blood Pressure (mm Hg) 111/70 Blood Pressure Location Right Arm Source Automatic Cuff Position HOB Elevated Neuro Status *recalled from last Alert documentation MEWS Score 1 Vital Signs Assessment Start: 10/31/16 00: 57 Freq: Q4H Status: Discharge Document 10/31/16 03:54 LMO (Rec: 10/31/16 03:56 LMO [id number]) Vital Signs with MEWS Temperature (97.6 F-99.6 F) 98.5 F Temperature Source Oral Pulse Rate (beats/min) 97 Respiratory Rate (breaths/min) 18 Pulse Oximetry (95-100 %) 99 Oxygen Delivery Room Air Blood Pressure (mm Hg) 118/53 Blood Pressure Location Left Arm Source Automatic Cuff Position Standing Neuro Status *recalled from last Alert documentation MEWS Score 1 Document 10/31/16 12:00 [facility] (Rec: 10/31/16 12:26 [facility] [id number]) Vital Signs with MEWS Temperature (97.6 F-99.6 F) 97.9 F Temperature Source Oral Pulse Rate (beats/min) 76 Respiratory Rate (breaths/min) 14 Pulse Oximetry (95-100 %) 98 Oxygen Delivery Room Air Blood Pressure (mm Hg) 109/64 Blood Pressure Location Left Arm Source Automatic Cuff Position HOB Elevated Neuro Status *recalled from last Alert documentation MEWS Score 0 Document 10/31/16 16:51 LEB (Rec: 10/31/16 16:52 [facility] [id number]) Vital Signs with MEWS Temperature (97.6 F-99.6 F) 98.3 F Temperature Source Oral Pulse Rate (beats/min) 88 Respiratory Rate (breaths/min) 16 Pulse Oximetry (95-100 %) 97 Oxygen Delivery Room Air Blood Pressure (mm Hg) 113/61 Blood Pressure Location Right Arm Source Automatic Cuff Position HOB Elevated Neuro Status *recalled from last Alert documentation MEWS Score 1 Document 10/31/16 19:41 [facility] (Rec: 10/31/16 19:47 [facility] [id number]) Vital Signs with MEWS Temperature (97.6 F-99.6 F) 98.6 F Temperature Source Oral Pulse Rate (beats/min) 93 Respiratory Rate (breaths/min) 18 Pulse Oximetry (95-100 %) 95 Oxygen Delivery Room Air Blood Pressure (mm Hg) 117/60 Blood Pressure Location Left Arm Source Automatic Cuff Position HOB Elevated Neuro Status *recalled from last Alert documentation MEWS Score 1 Document 10/31/16 23:25 [facility] (Rec: 11/01/16 01:35 [facility] [id number]) Vital Signs with MEWS Temperature (97.6 F-99.6 F) 98.8 F Temperature Source Oral Pulse Rate (beats/min) 103 Respiratory Rate (breaths/min) 14 Pulse Oximetry (95-100 %) 95 Oxygen Delivery Room Air Blood Pressure (mm Hg) 130/74 Blood Pressure Location Left Arm Source Automatic Cuff Position Right Lateral Neuro Status *recalled from last Alert documentation MEWS Score 1 Document 11/01/16 03:20 [facility] (Rec: 11/01/16 03:58 [facility] [id number]) Vital Signs with MEWS Temperature (97.6 F-99.6 F) 98.4 F Temperature Source Oral Pulse Rate (beats/min) 99 Respiratory Rate (breaths/min) 15 Pulse Oximetry (95-100 %) 95 Oxygen Delivery Room Air Blood Pressure (mm Hg) 137/70 Blood Pressure Location Left Arm Source Automatic Cuff Position Sitting Neuro Status *recalled from last Alert documentation MEWS Score 1 Document 11/01/16 07:26 MVJ (Rec: 11/01/16 07:30 MVJ [id number]) Vital Signs with MEWS Temperature (97.6 F-99.6 F) 98.9 F Temperature Source Oral Pulse Rate (beats/min) 87 Respiratory Rate (breaths/min) 16 Pulse Oximetry (95-100 %) 97 Oxygen Delivery Room Air Blood Pressure (mm Hg) 118/67 Blood Pressure Location Right Arm Document 11/01/16 10:42 MVJ (Rec: 11/01/16 10:42 MVJ [id number]) Vital Signs with MEWS Temperature (97.6 F-99.6 F) 98.5 F Temperature Source Oral Pulse Rate (beats/min) 89 Respiratory Rate (breaths/min) 16 Pulse Oximetry (95-100 %) 94 L Blood Pressure (mm Hg) 116/55 Blood Pressure Location Right Arm Document 11/01/16 14:56 MVJ (Rec: 11/01/16 15:00 MVJ [id number]) Vital Signs with MEWS Temperature (97.6 F-99.6 F) 98.6 F Temperature Source Oral Pulse Rate (beats/min) 83 Respiratory Rate (breaths/min) 16 Pulse Oximetry (95-100 %) 94 L Blood Pressure (mm Hg) 116/53 Blood Pressure Location Right Arm Document 11/01/16 19:18 [facility] [place] (Rec: 11/01/16 19:24 [id number] Vital Signs with MEWS Temperature (97.6 F-99.6 F) 100.2 F H Temperature Source Oral Pulse Rate (beats/min) 90 Respiratory Rate (breaths/min) 16 Pulse Oximetry (95-100 %) 94 L Oxygen Delivery Room Air Blood Pressure (mm Hg) 129/67 Blood Pressure Location Right Arm Source Automatic Cuff Position HOB Elevated Neuro Status *recalled from last Alert documentation MEWS Score 1 Document 11/02/16 00:52 [facility] [place] (Rec: 11/02/16 00:53 [id number]) Vital Signs with MEWS Temperature (97.6 F-99.6 F) 98.4 F Temperature Source Oral Pulse Rate (beats/min) 86 Respiratory Rate (breaths/min) 16 Pulse Oximetry (95-100 %) 93 L Oxygen Delivery Room Air Blood Pressure (mm Hg) 122/70 Blood Pressure Location Right Arm Source Automatic Cuff Position HOB Elevated Neuro Status *recalled from last Alert documentation MEWS Score 1 Document 11/02/16 04:25 [facility] [place] (Rec: 11/02/16 05:37 [id number]) Vital Signs with MEWS Temperature (97.6 F-99.6 F) 98.5 F Temperature Source Oral Pulse Rate (beats/min) 86 Respiratory Rate (breaths/min) 17 Pulse Oximetry (95-100 %) 93 L Oxygen Delivery Room Air Blood Pressure (mm Hg) 133/59 Blood Pressure Location Right Arm Source Automatic Cuff Position HOB Elevated Neuro Status *recalled from last Alert documentation MEWS Score 1 Document 11/02/16 07:35 [id number] (Rec: 11/02/16 07:36 [id number]) Vital Signs with MEWS Temperature (97.6 F-99.6 F) 98.8 F Temperature Source Oral Pulse Rate (beats/min) 91 Respiratory Rate (breaths/min) 16 Pulse Oximetry (95-100 %) 93 L Oxygen Delivery Room Air Blood Pressure (mm Hg) 113/64 Blood Pressure Location Right Arm Source Automatic Cuff Position HOB Elevated Neuro Status *recalled from last Alert documentation MEWS Score 1 Document 11/02/16 11:52 [id number] (Rec: 11/02/16 11:53 [id number]) Vital Signs with MEWS Temperature (97.6 F-99.6 F) 98.3 F Temperature Source Oral Pulse Rate (beats/min) 85 Respiratory Rate (breaths/min) 16 Pulse Oximetry (95-100 %) 94 L Oxygen Delivery Room Air Blood Pressure (mm Hg) 116/67 Blood Pressure Location Left Arm Source Automatic Cuff Position HOB Elevated Neuro Status *recalled from last Alert documentation MEWS Score 1 Document 11/02/16 15:51 [id number] (Rec: 11/02/16 15:52 [id number]) Vital Signs with MEWS Temperature (97.6 F-99.6 F) 98.3 F Temperature Source Oral Pulse Rate (beats/min) 85 Respiratory Rate (breaths/min) 16 Pulse Oximetry (95-100 %) 94 L Oxygen Delivery Room Air Blood Pressure (mm Hg) 144/78 Blood Pressure Location Right Arm Source Automatic Cuff Position HOB Elevated Neuro Status *recalled from last Alert documentation MEWS Score 1 Document 11/02/16 19:30 [facility] (Rec: 11/02/16 19:46 [id number]) Vital Signs with MEWS Temperature (97.6 F-99.6 F) 98.9 F Temperature Source Oral Pulse Rate (beats/min) 86 Respiratory Rate (breaths/min) 15 Pulse Oximetry (95-100 %) 96 Oxygen Delivery Room Air Blood Pressure (mm Hg) 121/69 Blood Pressure Location Left Arm Source Automatic Cuff Position Sitting Neuro Status *recalled from last Alert documentation MEWS Score 1 Document 11/02/16 23:25 [facility] (Rec: 11/02/16 23:26 [id number]) Vital Signs with MEWS Temperature (97.6 F-99.6 F) 98.7 F Temperature Source Oral Pulse Rate (beats/min) 81 Respiratory Rate (breaths/min) 14 Pulse Oximetry (95-100 %) 96 Oxygen Delivery Room Air Blood Pressure (mm Hg) 121/70 Blood Pressure Location Right Arm Source Automatic Cuff Position HOB Elevated Neuro Status *recalled from last Alert documentation MEWS Score 0 Document 11/03/16 03:23 [facility] (Rec: 11/03/16 03:34 [facility] [id number]) Vital Signs with MEWS Temperature (97.6 F-99.6 F) 98.4 F Temperature Source Oral Pulse Rate (beats/min) 90 Respiratory Rate (breaths/min) 14 Pulse Oximetry (95-100 %) 96 Oxygen Delivery Room Air Blood Pressure (mm Hg) 139/75 Blood Pressure Location Right Arm Source Automatic Cuff Position HOB Elevated Neuro Status *recalled from last Alert documentation MEWS Score 0 Document 11/03/16 07:30 LEB (Rec: 11/03/16 07:31 [facility] [id number]) Vital Signs with MEWS Temperature (97.6 F-99.6 F) 98.3 F Temperature Source Oral Pulse Rate (beats/min) 90 Respiratory Rate (breaths/min) 14 Pulse Oximetry (95-100 %) 94 L Oxygen Delivery Room Air Blood Pressure (mm Hg) 115/70 Blood Pressure Location Right Arm Source Automatic Cuff Position Supine Neuro Status *recalled from last Alert documentation MEWS Score 0 Document 11/03/16 12:41 LEB (Rec: 11/03/16 12:42 LEB [id number]) Vital Signs with MEWS Temperature (97.6 F-99.6 F) 98.7 F Temperature Source Oral Pulse Rate (beats/min) 85 Respiratory Rate (breaths/min) 14 Pulse Oximetry (95-100 %) 94 L Oxygen Delivery Room Air Blood Pressure (mm Hg) 117/71 Blood Pressure Location Left Arm Source Automatic Cuff Position HOB Elevated Neuro Status *recalled from last Alert documentation MEWS Score 0 Document 11/03/16 16:19 JLR (Rec: 11/03/16 16:19 JLR [id number]) Vital Signs with MEWS Temperature (97.6 F-99.6 F) 98.4 F Temperature Source Oral Pulse Rate (beats/min) 89 Respiratory Rate (breaths/min) 14 Pulse Oximetry (95-100 %) 96 Oxygen Delivery Room Air Blood Pressure (mm Hg) 142/59 Blood Pressure Location Right Arm Source Automatic Cuff Position HOB Elevated Neuro Status *recalled from last Alert documentation MEWS Score 0 Document 11/03/16 19:16 LMO (Rec: 11/03/16 19:25 LMO [id number]) Vital Signs with MEWS Temperature (97.6 F-99.6 F) 98.4 F Temperature Source Oral Pulse Rate (beats/min) 90 Respiratory Rate (breaths/min) 16 Pulse Oximetry (95-100 %) 97 Oxygen Delivery Room Air Blood Pressure (mm Hg) 124/57 Blood Pressure Location Right Arm Source Automatic Cuff Position Sitting Neuro Status *recalled from last Alert documentation MEWS Score 1 Document 11/04/16 00:31 EG (Rec: 11/04/16 00:38 [id number]) Vital Signs with MEWS Temperature (97.6 F-99.6 F) 98.2 F Temperature Source Oral Pulse Rate (beats/min) 73 Respiratory Rate (breaths/min) 18 Pulse Oximetry (95-100 %) 98 Oxygen Delivery Room Air Blood Pressure (mm Hg) 119/62 Blood Pressure Location Right Arm Source Automatic Cuff Position HOB Elevated Neuro Status *recalled from last Alert documentation MEWS Score 1 Document 11/04/16 04:39 CDP (Rec: 11/04/16 04:50 CDP [id number]) Vital Signs with MEWS Temperature (97.6 F-99.6 F) 98.2 F Temperature Source Oral Pulse Rate (beats/min) 82 Respiratory Rate (breaths/min) 18 Pulse Oximetry (95-100 %) 95 Oxygen Delivery Room Air Blood Pressure (mm Hg) 119/62 Blood Pressure Location Right Arm Source Automatic Cuff Position HOB Elevated Neuro Status *recalled from last Alert documentation MEWS Score 1 Document 11/04/16 07:22 [facility] (Rec: 11/04/16 07:23 [facility] [id number]) Vital Signs with MEWS Temperature (97.6 F-99.6 F) 98.3 F Temperature Source Oral Pulse Rate (beats/min) 79 Respiratory Rate (breaths/min) 16 Pulse Oximetry (95-100 %) 95 Oxygen Delivery Room Air Blood Pressure (mm Hg) 119/69 Blood Pressure Location Right Arm Source Automatic Cuff Position HOB Elevated Neuro Status *recalled from last Alert documentation MEWS Score 1 Document 11/04/16 10:45 [facility] (Rec: 11/04/16 10:45 [facility] [id number]) Vital Signs with MEWS Temperature (97.6 F-99.6 F) 97.6 F Temperature Source Oral Pulse Rate (beats/min) 90 Respiratory Rate (breaths/min) 17 Pulse Oximetry (95-100 %) 94 L Oxygen Delivery Room Air Blood Pressure (mm Hg) 146/72 Blood Pressure Location Right Arm Source Automatic Cuff Position HOB Elevated Neuro Status *recalled from last Alert documentation MEWS Score 1 Document 11/04/16 15:14 [facility] (Rec: 11/04/16 15:14 [facility] [id number]) Vital Signs with MEWS Temperature (97.6 F-99.6 F) 97.2 F L Temperature Source Oral Pulse Rate (beats/min) 77 Respiratory Rate (breaths/min) 17 Pulse Oximetry (95-100 %) 95 Oxygen Delivery Room Air Blood Pressure (mm Hg) 150/75 Blood Pressure Location Right Arm Source Automatic Cuff Position HOB Elevated Neuro Status *recalled from last Alert documentation MEWS Score 1 Document 11/04/16 22:11 [facility] (Rec: 11/04/16 22:12 [id number] Vital Signs with MEWS Temperature (97.6 F-99.6 F) 98.1 F Temperature Source Oral Pulse Rate (beats/min) 81 Respiratory Rate (breaths/min) 17 Pulse Oximetry (95-100 %) 95 Oxygen Delivery Room Air Blood Pressure (mm Hg) 149/63 Blood Pressure Location Right Arm Source Automatic Cuff Position HOB Elevated Neuro Status *recalled from last Alert documentation MEWS Score 1 Document 11/05/16 00:42 CMT (Rec: 11/05/16 00:43 CMT [id number]) Vital Signs with MEWS Temperature (97.6 F-99.6 F) 98.6 F Temperature Source Oral Pulse Rate (beats/min) 81 Respiratory Rate (breaths/min) 17 Pulse Oximetry (95-100 %) 95 Oxygen Delivery Room Air Blood Pressure (mm Hg) 139/58 Blood Pressure Location Right Arm Source Automatic Cuff Position HOB Elevated Neuro Status *recalled from last Alert documentation MEWS Score 1 Document 11/05/16 04:11 CMT (Rec: 11/05/16 04:11 [id number]) Vital Signs with MEWS Temperature (97.6 F-99.6 F) 98.4 F Temperature Source Oral Pulse Rate (beats/min) 81 Respiratory Rate (breaths/min) 17 Pulse Oximetry (95-100 %) 96 Oxygen Delivery Room Air Blood Pressure (mm Hg) 128/59 Blood Pressure Location Right Arm Source Automatic Cuff Position HOB Elevated Neuro Status *recalled from last Alert documentation MEWS Score 1 Document 11/05/16 06:55 [facility] (Rec: 11/05/16 07:03 BEH [id number]) Vital Signs with MEWS Temperature (97.6 F-99.6 F) 98.1 F Temperature Source Oral Pulse Rate (beats/min) 82 Respiratory Rate (breaths/min) 16 Pulse Oximetry (95-100 %) 96 Oxygen Delivery Room Air Blood Pressure (mm Hg) 144/74 Blood Pressure Location Right Arm Source Automatic Cuff Position Supine Neuro Status *recalled from last Alert documentation MEWS Score 1 Document 11/05/16 11:30 [facility] (Rec: 11/05/16 11:31 [facility] [id number]) Vital Signs with MEWS Temperature (97.6 F-99.6 F) 97.7 F Temperature Source Oral Pulse Rate (beats/min) 79 Respiratory Rate (breaths/min) 16 Pulse Oximetry (95-100 %) 97 Oxygen Delivery Room Air Blood Pressure (mm Hg) 155/76 Blood Pressure Location Right Arm Source Automatic Cuff Position HOB Elevated Neuro Status *recalled from last Alert documentation MEWS Score 1 Wound Assessment Start: 10/30/16 23: 59 Freq: Q8H Status: Inactive Document 10/31/16 00:30 [id number] (Rec: 10/31/16 01:53 [id number]) Drains Tube/Drain Discontinued No Discharge ED Provider: Chris Good Status: Departed Time Seen by Provider: 10/30/16 19:27 Condition: Fair Triaged At: Other ED Providers: Ruben Zaidi Jr, Jessica N Haidar, Wael Emergency Discharge Date/Time: 10/30/16 23:43 Emergency Discharge Disposition: Admitted As Inpatient Clinical Impression Influenza B Emergency Discharge Comment: Admit Intervention Last Done ED Weakness Assessment 10/30/16 19:30 Query Result Weakness Symptoms/Complaint Generalized Weakness Weakness Duration Constant Level Of Consciousness Awake Alert Appropriate Follows Commands Patient Orientation Person Place Time Left -Pupil Size 4 -Pupil Reaction Brisk -Pupil [place] PERRL right\\ -Pupil Size 4 -Pupil Reaction Brisk -Pupil [place] PERRL Speech Pattern Clear Appropriate Coherent All Four Limbs -Muscle Strength (Extremity) Severe Weakness ED Discharge Assessment 10/30/16 23:42 Query Result ED Discharge Disposition Admitted Med Rec/Patient Phamracy completed? 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 Report given to Nurse Care transferred to Yumi RN Information relayed patient's care treatments medications given condition recent/anticipated change Clinical Documentation Summary Provided Yes: emr Severity scale (1-10) 0 Pain Scale Used Standard (1-10) Blood Pressure 0/0 Heart rate 0 Respiratory Rate 0 Pulse Oximetry Reading 0 Comment vitals deferred Critical Care Minutes 0 Inpatient Discharge Date/Time: 11/05/16 13:38 Inpatient Discharge Disposition: Transfer SNF Inpatient Discharge Comment: Observation Discharge Date/Time: Observation Discharge Disposition: Observation Discharge Comment: Instructions: Probiotic (By mouth) Antacid, Calcium and Magnesium (By mouth) Stand-Alone Forms: Prescriptions: Calcium Carbonate [Tums] Tereandari,Prativa Lactobacillus [Culturelle] Sairari,Prativa Visit Report - Forms: - Referrals: Jayson Bull DO (Primary Care Provider) - 11/08/16 2 :30 pm
[2016-10-31 05:06] LABS: Hemoglobin 12.1 g/dL (11.5-15.4); Mean Corpuscular Volume 96.4 fL (83.0-100.0)
[2016-10-31 05:08] LABS: Hematocrit 37.3 % (35.3-44.9); Immature Platelets 3.4 % (1.1-6.1); Mean Corpuscular HGB Conc 32.4 g/dL (31.6-35.5); Mean Corpuscular Hemoglobin 31.3 pg (28.0-33.3); Mean Platelet Volume 11.1 fL (9.4-12.4); Red Blood Count 3.87 M/mcL (3.82-4.97); Red Cell Distribution Width 12.6 % (11.5-14.5)
[2016-10-31 05:18] LABS: BUN/Creatinine Ratio 22 (6-26); Blood Urea Nitrogen 14 mg/dL (7-20); Calcium 7.8 mg/dL (8.6-10.8); Carbon Dioxide 18 mEq/L (19-29); Chloride 109 mEq/L (98-109); Glucose 65 mg/dL (70-99); Magnesium 1.8 mg/dL (1.6-2.6); Osmolality,Calculated 285 (280-300); Potassium 3.7 mEq/L (3.5-4.5); Sodium 138 mEq/L (136-145); eGFR For African Americans > 60 (> 60); eGFR For Non-African Americans > 60 (> 60)
[2016-10-31] MEDS ORDERED: Famotidine 20 MG/2 ML VIAL IVP SCH (06:00)
[2016-10-31] MEDS: Benzonatate 100 MG CAPSULE PO SCH ×4 (06:16→21:28)
[2016-10-31] MEDS: *HR* Heparin 5,000 UNIT/ML VIAL SQ SCH ×2 (06:17→17:43)
[2016-10-31 08:32] LABS: VBG HCO3 17.1 mEq/L (21-27); VBG PH 7.26 pH Units (7.32-7.42)
[2016-10-31 08:41] LABS: INR 1.3; Prothrombin Time 14.1 Seconds (9.4-12.1)
[2016-10-31 08:43] LABS: Activated Partial Thrombo Time 31.9 Seconds (26.0-36.0)
[2016-10-31] MEDS ORDERED: Azithromycin 500 MG in D5% in Water 250 ML IVPB SCH (09:00)
[2016-10-31] MEDS: Metoprolol XL (24 HR) Succ 25 MG TAB.ER.24H PO SCH (10:06)
[2016-10-31] MEDS: Loratadine 10 MG TABLET PO SCH (10:06)
[2016-10-31] MEDS: Ondansetron 4 MG/2 ML VIAL IVP PRN (11:29)
[2016-10-31] MEDS ORDERED: 0.9 % Sodium Chloride 500 ML IVC ONE (12:20)
[2016-10-31] MEDS: Pantoprazole 40 MG VIAL IVP SCH ×2 (17:44→21:29)
[2016-10-31] MEDS: D5% in 0.9% NACL 1,000 ML IVC SCH (17:44)
--- NOTE | 2016-10-31 18:08 | Electrocardiograph Report ---
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
--- NOTE | 2016-10-31 19:36 | Internal Med Progress Note ---
Date of Encounter: 10/31/16 Time of Encounter: 14:00 - Subjective Interval history: Patient was seen by hospitalist team in early this morning , history and physical reviewed Patient continued to have shortness of breath, generalized fatigue tiredness. She is complaining of nausea,low oral intake, had loose bowel movement today, we will check stool study. Add lactobacillus. Add bolus fluid. Change fluids to D5 0.9. Monitor lab next a.m.. Discontinue antibiotic continue antiviral. No evidence of bacteria pneumonia. - Constitutional Vitals: Temp Pulse Resp BP Pulse Ox 98.3 F 88 16 113/61 97 10/31/16 16:51 10/31/16 16:51 10/31/16 16:51 10/31/16 16:51 10/31/16 16:51 General appearance: Present: cooperative, mild distress, A&O X 3, pleasant, answers questions appropriately Internal Medicine: Result - Labs CBC & Chem 7: 10/31/16 03:58 10/31/16 03:58 Labs: Short CBC 10/31/16 Range/Units 03:58 WBC 4.3 (4.3-11.1) K/mcL Hgb 12.1 (11.5-15.4) g/dL Hct 37.3 (35.3-44.9) % Plt Count 108 L (140-400) K/mcL BMP 10/31/16 03:58 Sodium 138 Potassium 3.7 Chloride 109 Carbon Dioxide 18 L BUN 14 Creatinine 0.63 Glucose 65 L Calcium 7.8 L Cardiac Enzymes 10/31/16 10/31/16 10/31/16 Range/Units 03:58 08:21 14:32 Troponin I 0.01 0.02 0.01 (0-0.03) ng/mL - ABG Interpretation ABG results: PT/INR, D-dimer PT 14.1 Seconds (9.4-12.1) H 10/31/16 08:21 D-Dimer 641 ng/mLFEU (0-500) H 10/31/16 08:21 - VTE Documentation of Mechanical Device: Graduated compression elastic hosiery Consult Discharge Plan - Plan Referrals: Jayson Bull DO [Primary Care Provider] -
[2016-10-31] MEDS: Oseltamivir Phosphate 30 MG CAPSULE PO SCH (21:28)
[2016-10-31] MEDS: Lactobacillus 1 EACH CAP.SPRINK PO SCH (21:28)
[2016-11-01 05:45] LABS: Hemoglobin 11.1 g/dL (11.5-15.4)
[2016-11-01 05:47] LABS: Hematocrit 33.8 % (35.3-44.9); Immature Platelets 4.9 % (1.1-6.1); Lymphocytes # 0.6 K/mcL (0.6-4.6); Mean Corpuscular HGB Conc 32.8 g/dL (31.6-35.5); Mean Corpuscular Hemoglobin 31.2 pg (28.0-33.3); Mean Corpuscular Volume 94.9 fL (83.0-100.0); Mean Platelet Volume 10.8 fL (9.4-12.4); Red Blood Count 3.56 M/mcL (3.82-4.97); Red Cell Distribution Width 12.7 % (11.5-14.5)
[2016-11-01 06:02] LABS: BUN/Creatinine Ratio 16 (6-26); Blood Urea Nitrogen 9 mg/dL (7-20); Carbon Dioxide 18 mEq/L (19-29); Chloride 113 mEq/L (98-109); Glucose 88 mg/dL (70-99); Magnesium 1.4 mg/dL (1.6-2.6); Osmolality,Calculated 286 (280-300); Phosphorous 2.2 mg/dL (2.3-4.7); Potassium 3.3 mEq/L (3.5-4.5); Sodium 139 mEq/L (136-145); eGFR For African Americans > 60 (> 60); eGFR For Non-African Americans > 60 (> 60)
[2016-11-01 06:25] LABS: Platelet Count 93 K/mcL (140-400)
[2016-11-01] MEDS: D5% in 0.9% NACL 1,000 ML IVC SCH (06:25)
[2016-11-01] MEDS: *HR* Heparin 5,000 UNIT/ML VIAL SQ SCH ×2 (06:25→18:42)
[2016-11-01 06:29] LABS: Neutrophils # 1.5 K/mcL (1.6-8.9); Platelet Estimate Decreased (Normal); Reactive Lymphocytes Present (Not Present)
[2016-11-01] MEDS: Lactobacillus 1 EACH CAP.SPRINK PO SCH (09:00)
[2016-11-01] MEDS: Benzonatate 100 MG CAPSULE PO SCH ×3 (09:01→21:56)
[2016-11-01] MEDS: Metoprolol XL (24 HR) Succ 25 MG TAB.ER.24H PO SCH (09:01)
[2016-11-01] MEDS: Loratadine 10 MG TABLET PO SCH (09:01)
[2016-11-01] MEDS: Oseltamivir Phosphate 30 MG CAPSULE PO SCH ×2 (09:01→21:55)
[2016-11-01] MEDS ORDERED: SODIUM CHLORIDE 0.9% IVPB ONE (12:06)
[2016-11-01] MEDS ORDERED: Magnesium Sulfate 2 GM in D5% in Water 100 ML IVPB ONE (12:06)
[2016-11-01] MEDS ORDERED: POTASSIUM PHOSPHATE IVPB ONE (12:06)
[2016-11-01] MEDS ORDERED: D5% in 0.9% NACL 1,000 ML IVC SCH (12:11)
[2016-11-01] MEDS: Pantoprazole 40 MG VIAL IVP SCH (13:04)
[2016-11-01 14:31] LABS: Adenovirus Not Detected (Not Detect); Bordetella Pertussis Not Detected (Not Detect); Chlamydophila pneumoniae Not Detected (Not Detect); Coronavirus 229E Not Detected (Not Detect); Coronavirus HKU1 Not Detected (Not Detect); Coronavirus NL63 Not Detected (Not Detect); Coronavirus OC43 Not Detected (Not Detect); Human Metapneumovirus Not Detected (Not Detect); Human Rhinovirus/Enterovirus Not Detected (Not Detect); Influenza A Subtype 2009 H1 Not Detected (Not Detect); Influenza A Untypeable Not Detected (Not Detect); Influenza B ***DETECTED*** (Not Detect); Mycoplasma pneumoniae Not Detected (Not Detect); Parainfluenza Virus 1 Not Detected (Not Detect); Parainfluenza Virus 2 Not Detected (Not Detect); Parainfluenza Virus 3 Not Detected (Not Detect); Parainfluenza Virus 4 Not Detected (Not Detect); Respiratory Syncytial Virus Not Detected (Not Detect)
[2016-11-01 16:20] LABS: C.difficile Toxin A/B by PCR Not detected (Not detect); Campylobacter by PCR Not detected (Not detect); Cryptosporidium by PCR Not detected (Not detect); Cyclospora cayetanensis PCR Not detected (Not detect); E. coli O157 by PCR Not detected (Not detect); Entamoeba histolytica PCR Not detected (Not detect); Enteroaggregative E.coli(EAEC) Not detected (Not detect); Enteropathogenic E.coli(EPEC) Not detected (Not detect); Enterotoxigenic E.coli (ETEC) Not detected (Not detect); Giardia lamblia PCR Not detected (Not detect); Plesiomonas shigelloides PCR Not detected (Not detect); Salmonella PCR Not detected (Not detect); Shig/EnteroinvasiveE coli EIEC Not detected (Not detect); Shigalike tox-prod E coli STEC Not detected (Not detect); Vibrio PCR Not detected (Not detect); Vibrio cholerae PCR Not detected (Not detect); Yersinia enterocolitica PCR Not detected (Not detect)
[2016-11-01 16:21] LABS: Adenovirus F 40/41 PCR Not detected (Not detect); Astrovirus PCR Not detected (Not detect); Norovirus GI/GII PCR Not detected (Not detect); Rotavirus A PCR Not detected (Not detect); Sapovirus PCR Not detected (Not detect)
[2016-11-01] MEDS: D5% in 0.9% NACL w KCl 20 MEQ/1,000 ML MLS IVC SCH (18:41)
--- NOTE | 2016-11-01 20:24 | Internal Med Progress Note ---
Date of Encounter: 11/01/16 Time of Encounter: 15:00 - Assessment and plan (1) Pancytopenia Current Visit: Yes Status: Acute (2) Metabolic acidosis Current Visit: Yes Status: Acute (3) Hypomagnesemia Current Visit: Yes Status: Acute (4) Hypophosphatemia Current Visit: Yes Status: Acute (5) Influenza B Current Visit: Yes Status: Acute - Time Spent With Patient Plan Will increase IV fluids, replace all electrolytes , Check CBC BMP next AM , Monitor closely ,PT consult. Advance diet 25 - 35 minutes - Subjective Interval history: patient continued to feel fatigued, shortness of breath with ambulating the bathroom, low oral intake,feeling dizzy with standing - Constitutional Vitals: Temp Pulse Resp BP Pulse Ox 100.2 F H 90 16 129/67 94 L 11/01/16 19:18 11/01/16 19:18 11/01/16 19:18 11/01/16 19:18 11/01/16 19:18 General appearance: Present: cooperative, mild distress, A&O X 3, pleasant, answers questions appropriately - Head Head exam: Present: atraumatic, normocephalic - Respiratory Respiratory exam: Present: decreased breath sounds. Absent: accessory muscle use, rales, rhonchi, wheezes - Cardiovascular Cardiovascular exam: Present: RRR, +S1, +S2. Absent: diastolic murmur, gallop, rubs, systolic murmur - GI/Abdominal GI/Abdominal exam: Present: normal bowel sounds, soft, no peritoneal signs. Absent: distended, tenderness - Extremities Exam Extremities exam: Present: warm, radial pulses palpable and symetrical. Absent : calf tenderness, cyanotic, pedal edema - Skin Skin exam: Present: dry, intact Internal Medicine: Result - Labs CBC & Chem 7: 11/01/16 05:26 11/01/16 05:26 Labs: Short CBC 11/01/16 Range/Units 05:26 WBC 2.2 L (4.3-11.1) K/mcL Hgb 11.1 L (11.5-15.4) g/dL Hct 33.8 L (35.3-44.9) % Plt Count 93 L (140-400) K/mcL Neutrophils # 1.5 L (1.6-8.9) K/mcL BMP 11/01/16 05:26 Sodium 139 Potassium 3.3 L Chloride 113 H Carbon Dioxide 18 L BUN 9 Creatinine 0.58 Glucose 88 Calcium 8.0 L - ABG Interpretation ABG results: PT/INR, D-dimer PT 14.1 Seconds (9.4-12.1) H 10/31/16 08:21 D-Dimer 641 ng/mLFEU (0-500) H 10/31/16 08:21 - VTE Documentation of Mechanical Device: Graduated compression elastic hosiery Consult Discharge Plan - Plan Referrals: Jayson Bull DO [Primary Care Provider] -
[2016-11-02 06:18] LABS: Basophils % 0.6 %; Eosinophils % 0.6 %; Hematocrit 32.4 % (35.3-44.9); Immature Granulocytes % 1.2 % (0-4); Immature Platelets 5.5 % (1.1-6.1); Lymphocytes # 0.7 K/mcL (0.6-4.6); Lymphocytes % 42.8 %; Mean Corpuscular Hemoglobin 31.9 pg (28.0-33.3); Mean Corpuscular Volume 93.9 fL (83.0-100.0); Mean Platelet Volume 11.9 fL (9.4-12.4); Monocytes # 0.3 K/mcL (0.0-1.3); Monocytes % 17.3 %; Red Blood Count 3.45 M/mcL (3.82-4.97); Segmented Neutrophils % 37.5 %
[2016-11-02 07:12] LABS: BUN/Creatinine Ratio 7 (6-26); Calcium 7.3 mg/dL (8.6-10.8); Carbon Dioxide 21 mEq/L (19-29); Chloride 114 mEq/L (98-109); Glucose 104 mg/dL (70-99); Magnesium 1.6 mg/dL (1.6-2.6); Osmolality,Calculated 291 (280-300); Phosphorous 2.4 mg/dL (2.3-4.7); Potassium 3.2 mEq/L (3.5-4.5); Sodium 142 mEq/L (136-145); eGFR For African Americans > 60 (> 60); eGFR For Non-African Americans > 60 (> 60)
[2016-11-02 07:14] LABS: Neutrophils # 0.6 K/mcL (1.6-8.9)
[2016-11-02 07:15] LABS: Blood Urea Nitrogen 4 mg/dL (7-20); Platelet Count 85 K/mcL (140-400)
[2016-11-02 07:17] LABS: Platelet Estimate Decreased (Normal)
[2016-11-02] MEDS: Oseltamivir Phosphate 30 MG CAPSULE PO SCH ×2 (08:27→20:35)
[2016-11-02] MEDS: Lactobacillus 1 EACH CAP.SPRINK PO SCH (08:27)
[2016-11-02] MEDS: Metoprolol XL (24 HR) Succ 25 MG TAB.ER.24H PO SCH (08:28)
[2016-11-02] MEDS: Benzonatate 100 MG CAPSULE PO SCH ×3 (08:28→20:35)
[2016-11-02] MEDS: Pantoprazole 40 MG VIAL IVP SCH (08:28)
[2016-11-02] MEDS: Loratadine 10 MG TABLET PO SCH (08:28)
[2016-11-02] MEDS: D5% in 0.9% NACL w KCl 20 MEQ/1,000 ML MLS IVC SCH ×2 (08:30→11:39)
--- NOTE | 2016-11-02 12:32 | Internal Med Progress Note ---
Date of Encounter: 11/02/16 Time of Encounter: 11:15 - Assessment and plan (1) Metabolic acidosis Current Visit: Yes Status: Acute (2) Hypomagnesemia Current Visit: Yes Status: Acute (3) Hypophosphatemia Current Visit: Yes Status: Acute (4) Influenza B Current Visit: Yes Status: Acute (5) Thrombocytopenia Current Visit: Yes Status: Acute - Time Spent With Patient Plan We will start Neutropenic precautions.discussed with roll cutting operator as well as with infection was disease team. ontinue Tamiflu, continue IV fluid. With her marked decrease oral intake ,we will add nutritional supplement. May consider adding empiric antibiotic coverage. Based on roll cutting operator team he will evaluate and decide on adding antibiotic if needed. Replace electrolytes 25 - 35 minutes - Subjective Interval history: patient is feeling so tired. She is feeling very exhausted with minimal activity. C/o diarrhea , Marked decrease oral intake - Constitutional Vitals: Temp Pulse Resp BP Pulse Ox 98.3 F 85 16 116/67 94 L 11/02/16 11:52 11/02/16 11:52 11/02/16 11:52 11/02/16 11:52 11/02/16 11:52 General appearance: Present: cooperative, mild distress, A&O X 3, pleasant, answers questions appropriately - Neck Neck exam general surgery: Present: supple, trachea midline. Absent: lymphadenopathy - Respiratory Respiratory exam: Present: decreased breath sounds, rales (left basilar crackles ). Absent: accessory muscle use, rhonchi, wheezes - Cardiovascular Cardiovascular exam: Present: RRR, +S1, +S2. Absent: diastolic murmur, gallop, rubs, systolic murmur - GI/Abdominal GI/Abdominal exam: Present: normal bowel sounds, soft, no peritoneal signs. Absent: distended, tenderness - Extremities Exam Extremities exam: Present: warm, radial pulses palpable and symetrical. Absent : calf tenderness, cyanotic, pedal edema Internal Medicine: Result - Labs CBC & Chem 7: 11/02/16 05:05 11/02/16 05:05 Labs: Short CBC 11/02/16 Range/Units 05:05 WBC 1.7 L (4.3-11.1) K/mcL Hgb 11.0 L (11.5-15.4) g/dL Hct 32.4 L (35.3-44.9) % Plt Count 85 L (140-400) K/mcL Neutrophils # 0.6 L (1.6-8.9) K/mcL BMP 11/02/16 05:05 Sodium 142 Potassium 3.2 L Chloride 114 H Carbon Dioxide 21 BUN 4 L Creatinine 0.55 L Glucose 104 H Calcium 7.3 L - ABG Interpretation ABG results: PT/INR, D-dimer PT 14.1 Seconds (9.4-12.1) H 10/31/16 08:21 D-Dimer 641 ng/mLFEU (0-500) H 10/31/16 08:21 - VTE Documentation of Mechanical Device: Graduated compression elastic hosiery Consult Discharge Plan - Plan Referrals: Jayson Bull DO [Primary Care Provider] -
--- NOTE | 2016-11-02 17:50 | Oncology Inp Consult Note ---
<Ruben Zaidi Jr - Last Filed: 11/02/16 17:48> Date of Encounter: 11/02/16 Time of Encounter: 16:35 Assessment and Plan (1) Neutropenia associated with infection Status: Acute Assessment and plan: She is most likely neutropenic from her influenza B. We see this typically in viral or bacterial syndromes. We suggest neutropenic precautions for now. I explained these in detail with the patient and her and daughter at bedside. I explained the nature and etiology of neutropenia in the setting of influenza type B We prefer conservative measures just to watch the patient's counts review counts again tomorrow morning on her regular daily blood draw. We do not need to start the patient on Neupogen or any colony stimulator's. She has significant diarrhea, I ordered a C. difficile stool culture, and started the patient on empiric Flagyl and stopped her Colace. Because of the patient's current depressed immune system, she could easily get a C. difficile infection. Dr Rueda conveyor belt operator, and he will see the patient later this evening. He agrees with above plan. (2) Influenza B Status: Acute (3) Diarrhea Status: Acute Assessment and plan: She has significant diarrhea. She states she is incontinent with bowel even prior to making it to bedside commode. With significant neutropenia, the patient may have Clostridium difficile or some infectious diarrhea. I stopped the patient's Colace. I ordered Clostridium difficile fecal culture. I started the patient on Flagyl 500 mg by mouth 3 times daily until results of culture are back. The patient's bedside nurse was updated by me about current plan Qualifiers: Diarrhea type: presumed infectious Qualified Code(s): A09 - Infectious gastroenteritis and colitis, unspecified - Data of Consult Patient: new to practice Consult date: 11/02/16 Requesting Physician: Ruth Ann Goyal MD Primary Care Provider: Jayson Bull, - Consult Narrative History of present illness: Ms. Gonsales is a 81 year old female hospitalized last 2 days with influenza B. Patient has stable blood counts, with stable white count within normal ranges. However, the last 24 hours, the patient's white blood cell count began to drop, and the patient's neutrophil count began to drop to a level of 0.6 today. As was concerned about reason for neutropenia, and asked hematology service for assessment and recommendations. Currently, the patient states she has terrible diarrhea, she is having bowel incontinence prior to making it to the bedside commode. Patient has mild abdominal cramps. No history of Clostridium difficile. Past Med Surg Social Fam HX - Past Medical History Medical history: arthritis, hypertension, osteoporosis, thyroid disease, other ( H/O shingles) Psychiatric history: anxiety, depression - Past Surgical History Surgical History: appendectomy, cholecystectomy, other - Social History Smoking Status: Never smoker Smokeless Tobacco Status: No Alcohol use: none Drug use: none Medications and Allergies Clorazepate Dipotassium [Tranxene T-Tab] 7.5 mg PO BID PRN 10/30/16 [History] Metoprolol XL (24 HR) Succ [Toprol XL] 25 mg PO DAILY 10/30/16 [History] Sertraline [Zoloft] 25 mg PO DAILY 10/30/16 [History] Allergies No Known Allergies Allergy (Verified 10/30/16 19:29) All systems: reviewed and no additional remarkable complaints except as stated Constitutional: Present: fatigue, fever(s), malaise, weakness Nose, mouth and throat: Present: headache(s) Respiratory: Present: cough, dyspnea, chest congestion Gastrointestinal: Present: cramping, diarrhea, excessive flatus Neurological: Present: headache(s) Oncology - Exam - Constitutional Vitals: Temp Pulse Resp BP Pulse Ox 98.3 F 85 16 144/78 94 L 11/02/16 15:51 11/02/16 15:51 11/02/16 15:51 11/02/16 15:51 11/02/16 15:51 General appearance: average body habitus, cooperative, no acute distress - Head Head exam: Present: atraumatic, normal inspection - Eye Eye exam: Present: PERRL, sclera anicteric Pupils: Present: normal accommodation - ENT ENT exam: Present: mucous membranes dry - Neck Neck exam: Present: full ROM, normal inspection - Respiratory Respiratory exam: Present: decreased breath sounds - Cardiovascular Cardiovascular exam: Present: RRR, +S1, +S2 - GI/Abdominal GI/Abdominal exam: Present: hyperactive bowel sounds, soft - Extremities Exam Extremities exam: Present: full ROM, normal inspection - Neurological Exam Neurological exam: Present: alert, CN II-XII intact, oriented X3, no focal deficits - Psychiatric Psychiatric exam: Present: normal affect, normal mood - Skin Skin exam: Present: dry, intact, warm Oncology - Results - Labs Labs: Abnormal Lab Results 10/31/16 11/02/16 11/02/16 08:21 05:05 05:05 WBC 1.7 L RBC 3.45 L Hgb 11.0 L Hct 32.4 L MCV 93.9 MCH 31.9 MCHC 34.0 RDW 13.0 Plt Count 85 L MPV 11.9 Immature Gran % 1.2 Seg Neutrophils % 37.5 Lymphocytes % 42.8 Monocytes % 17.3 Eosinophils % 0.6 Basophils % 0.6 Neutrophils # 0.6 L Lymphocytes # 0.7 Monocytes # 0.3 Eosinophils # 0.0 Basophils # 0.0 Platelet Estimate Decreased L Immature Plt Fraction 5.5 Sodium 142 Potassium 3.2 L Chloride 114 H Carbon Dioxide 21 BUN 4 L Creatinine 0.55 L Est GFR ( Amer) > 60 Est GFR (Non-Af Amer) > 60 BUN/Creatinine Ratio 7 Glucose 104 H Calculated Osmolality 291 Calcium 7.3 L Phosphorus 2.4 Magnesium 1.6 Heparin-PF4 IgG Ab 0.073 Consult Discharge Plan - Plan Referrals: Jayson Bull DO [Primary Care Provider] - 11/08/16 2:30 pm <Giuliana Rueda - Last Filed: 11/03/16 12:53> Date of Encounter: 11/03/16 Assessment and Plan (1) Diarrhea Status: Acute Assessment and plan: Agree with C. difficile in the stools which has and the preliminary report was negative. Continue Flagyl Qualifiers: Qualified Code(s): A09 - Infectious gastroenteritis and colitis, unspecified (2) Influenza B Status: Acute Assessment and plan: This is probably contributing to neutropenia. She is trying to recover and she is on antiviral (3) Neutropenia associated with infection Status: Acute Assessment and plan: Neutropenic precautions. Okay to add antibiotics if neutropenia persists and neutrophil counts mildly improved to 800 today - Data of Consult Requesting Physician: Ruth Ann Goyal MD Primary Care Provider: Jayson Bull, - Consult Narrative History of present illness: Ms. Gonsales is a 81 year old female Oncology - Exam - Constitutional Vitals: Temp Pulse Resp BP Pulse Ox 98.7 F 85 14 117/71 94 L 11/03/16 12:41 11/03/16 12:41 11/03/16 12:41 11/03/16 12:41 11/03/16 12:41 Oncology - Results - Labs Labs: Short CBC 11/03/16 Range/Units 09:32 WBC 1.8 L (4.3-11.1) K/mcL Hgb 12.5 D (11.5-15.4) g/dL Hct 36.8 (35.3-44.9) % Plt Count 102 L (140-400) K/mcL Neutrophils # 0.8 L (1.6-8.9) K/mcL BMP 11/03/16 09:32 Sodium 139 Potassium 3.5 Chloride 109 Carbon Dioxide 23 BUN 3 L Creatinine 0.55 L Glucose 106 H Calcium 8.2 L
[2016-11-02] MEDS: metroNIDAZOLE 500 MG TABLET PO SCH (20:34)
[2016-11-03] MEDS: metroNIDAZOLE 500 MG TABLET PO SCH ×3 (08:18→22:06)
[2016-11-03] MEDS: Metoprolol XL (24 HR) Succ 25 MG TAB.ER.24H PO SCH (08:19)
[2016-11-03] MEDS: Lactobacillus 1 EACH CAP.SPRINK PO SCH (08:20)
[2016-11-03] MEDS: Oseltamivir Phosphate 30 MG CAPSULE PO SCH ×2 (08:20→22:07)
[2016-11-03] MEDS: Loratadine 10 MG TABLET PO SCH (08:20)
[2016-11-03] MEDS: D5% in 0.9% NACL w KCl 20 MEQ/1,000 ML MLS IVC SCH (08:21)
[2016-11-03] MEDS: Benzonatate 100 MG CAPSULE PO SCH ×2 (08:21→16:17)
[2016-11-03] MEDS: Pantoprazole 40 MG VIAL IVP SCH (08:21)
--- NOTE | 2016-11-03 10:02 | Infectious Disease Consult ---
Date of Encounter: 11/03/16 Time of Encounter: 09:58 Assessment and Plan (1) Influenza B Status: Acute Assessment and plan: Influenza B positive per antigen and PCR. Started on Tamiflu (day 4). Continue Tamiflu to complete a five day course. Continue supportive care. (2) Neutropenia associated with infection Status: Acute Assessment and plan: WBC 1.7 yesterday with ANC of 638. Etiology likely secondary to Influenza infection as neutropenia is a common occurrence with viral and bacterial infections. No evidence of acute bacterial infection - CXR negative, urinalysis without S/S of infection, stool workup negative and no abdominal pain noted, no focal symptoms, no fevers. Hem/Onc consulted and following. Recheck CBC with diff and BMP now. No prophylactic antibiotics required at this time. Continue to monitor closely. Continue neutropenia precautions. Blood culture drawn 10/30/16 is NGTD x 1 set. (3) Cephalgia Status: Acute Assessment and plan: Likely secondary to influenza B and worsened by cough. CXR negative for acute process. Continue supportive care as outline by the primary team. Qualifiers: Headache type: unspecified Headache chronicity pattern: acute headache Intractability: not intractable Qualified Code(s): R51 - Headache (4) Diarrhea Status: Acute Assessment and plan: Stool panel negative, including C. diff. No enteric pathogens identified. No abdominal pain. Likely secondary to Tamiflu. Discontinue Flagyl. Discontinue C. diff precautions. Cancel repeat C. diff order. Qualifiers: Diarrhea type: presumed infectious Qualified Code(s): A09 - Infectious gastroenteritis and colitis, unspecified (5) Frail elderly Status: Acute Infectious Disease HPI - Data of Consult Patient: new to practice Consult date: 11/03/16 Requesting Physician: Ruth Ann Goyal MD Primary Care Provider: Jayson Bull, - Consult Narrative Reason for consult: Neutropenia History of present illness: Ms. Gonsales is a 81 year old female past medical history of hypothyroidism, hypertension, anxiety, osteoporosis, and depression. The patient was admitted to the hospital for very for influenza B. We are consulted November 03, 2016 for further evaluation and treatment recommendations regarding neutropenia. The patient is an 81-year-old female past medical history as stated above. The patient states that for about a week and a half prior to admission, she had a dry, nonproductive, persistent cough with headache. She also reported some generalized fatigue and malaise. Upon arrival, the patient was afebrile, but was tachycardic. Otherwise, the patient was hemodynamically stable. Labs were studies revealed a normal white blood cell count is normal differential. Basic metabolic panel within normal limits. LFTs were negative. TSH was normal. Troponin was negative. Chest x-ray was negative for any acute process. Influenza antigen swab was positive for influenza B. The patient was put on Rocephin and Zithromax empirically, which have been discontinued and was started on Tamiflu. Since admission, the patient has had a MAXIMUM TEMPERATURE of 100.2. Her white blood cell count has dropped significantly and was 1.7 yesterday with an absolute neutrophil count of 638. Stool panel was negative for any enteric pathogens and C. difficile was negative. Urinalysis was non- indicative of infection. Respiratory infection panel was sent and was negative except for influenza B. Hematology has been consulted and is following. The patient has been started on Flagyl empirically for diarrhea. We've been asked to evaluate and make further recommendations. During my exam today, the patient states that she feels very tired, but her cough and headaches seem to be better. She denies any fevers or chills or rigors. She reports that the headache was consistent and worse with cough. She denies any neck pain or dizziness or focal weakness. She reports some nasal congestion, but no discharge. She denies any earache or sore throat. She denies chest pain or shortness of breath, but states that she noticed at home she was fatigued very easily. She denies any nausea, vomiting, diarrhea, or constipation prior to admission. She does report diarrhea since being admitted to the hospital. She states that the diarrhea is brown and liquidy and causes some incontinence. She denies blood in the stool. She denies any urinary complaints. She denies any focal areas of pain. She denies oral thrush or new skin lesions. The patient states she lives at home with her . They do have an indoor dog. She denies recent travel. She denies alcohol, tobacco, or illicit drug use. She denies any recurrent infections. CC: Ruth Ann Goyal MD Past Med Surg Social Fam HX - Past Medical History Attestation: Yes The following information was validated with the patient. Source: patient, old records reviewed, nursing notes reviewed Medical history: arthritis, hypertension, osteoporosis, thyroid disease, other ( H/O shingles) Psychiatric history: anxiety, depression - Past Surgical History Surgical History: appendectomy, cholecystectomy, other - Social History Smoking Status: Never smoker Smokeless Tobacco Status: No Alcohol use: none Drug use: none Infectious Disease-CN:Meds Clorazepate Dipotassium [Tranxene T-Tab] 7.5 mg PO BID PRN 10/30/16 [History] Metoprolol XL (24 HR) Succ [Toprol XL] 25 mg PO DAILY 10/30/16 [History] Sertraline [Zoloft] 25 mg PO DAILY 10/30/16 [History] Allergies No Known Allergies Allergy (Verified 10/30/16 19:29) All systems: reviewed and no additional remarkable complaints except as stated Exam - Constitutional Vitals: Temp Pulse Resp BP Pulse Ox 98.3 F 90 14 115/70 94 L 11/03/16 07:30 11/03/16 07:30 11/03/16 07:30 11/03/16 07:30 11/03/16 07:30 General appearance: average body habitus, cooperative, no acute distress - Head Head exam: Present: atraumatic, normal inspection, normocephalic - Eye Eye exam: Present: EOMI, normal appearance, PERRL Pupils: Present: normal accommodation - ENT ENT exam: Present: mucous membranes moist - Neck Neck exam: Present: normal inspection. Absent: lymphadenopathy - Respiratory Respiratory exam: Present: CTAB. Absent: rales, respiratory distress, rhonchi, wheezes - Cardiovascular Cardiovascular exam: Present: RRR, +S1, +S2 - GI/Abdominal GI/Abdominal exam: Present: normal bowel sounds, soft. Absent: distended, tenderness - Extremities Exam Extremities exam: Present: normal inspection. Absent: joint swelling, pedal edema, tenderness - Neurological Exam Neurological exam: Present: alert, oriented X3, no focal deficits, strengths equal and symetr throughout. Absent: facial droop, speech deficit - Psychiatric Psychiatric exam: Present: normal affect, normal mood - Skin Skin exam: Present: dry, intact, normal color, warm Infectious Disease CN: Results - Labs CBC & Chem 7: 11/02/16 05:05 11/02/16 05:05 Serology: Serology 11/01/16 11/01/16 10/30/16 Range/Units 13:28 13:04 22:41 Ur Specimen Adequacy Urine Color Yellow (Yellow) Urine Clarity Cloudy A (Clear) Urine pH 6.0 (5.0-8.0) pH Units Ur Specific [place] 1.022 (1.010-1.025) Urine Protein 30 H (Neg-Trace) mg/dL Urine Glucose (UA) Normal (Normal) mg/dL Urine Ketones >=160 H (Negative) mg/dL Urine Blood Large H (Negative) Urine Nitrite Negative (Negative) Urine Bilirubin Negative (Negative) Urine Urobilinogen Normal (Normal) mg/dL Ur Leukocyte Esterase Negative (Negative) Urine Microscopic RBC 0-3 (0-3) per hpf Urine Microscopic WBC 0-3 (0-3) per hpf Ur Squamous Epith Cells Many H (None-Few) per lpf Urine Bacteria None Seen (None-Few) per hpf Hyaline Casts None Seen (None-Few) per lpf Ur Culture Indicated? NO (NO) Stl C. cayetanensis PCR Not detected (Not detect) Stool Rotavirus A PCR Not detected (Not detect) Stl Adenov F 40/41 PCR Not detected (Not detect) Stool Astrovirus (PCR) Not detected (Not detect) Stool Campylobacter PCR Not detected (Not detect) Stl C. diff Tox A/B PCR Not detected (Not detect) Stool Cryptosporidium PCR Not detected (Not detect) Stl Sh Tox Pr E STEC PCR Not detected (Not detect) Stool E coli O157 PCR Not detected (Not detect) Stl Enterotoxigenic E PCR Not detected (Not detect) Stool EPEC (PCR) Not detected (Not detect) Stool EAEC (PCR) Not detected (Not detect) Stl E. histolytica PCR Not detected (Not detect) Stool Giardia Lamblia PCR Not detected (Not detect) Stool Salmonella PCR Not detected (Not detect) Stool Sapovirus (PCR) Not detected (Not detect) Stl P. shigelloides PCR Not detected (Not detect) Stl Shigella/EIEC PCR Not detected (Not detect) St Y.enterocolitica PCR Not detected (Not detect) Stool Vibrio (PCR) Not detected (Not detect) Stl Vibrio cholerae PCR Not detected (Not detect) Stl Norovirus GI/GII PCR Not detected (Not detect) Stl GI Panel (PCR) Com See below Chlamy pneumoniae PCR Not Detected (Not Detect) Adenovirus (PCR) Not Detected (Not Detect) B. pertussis DNA (PCR) Not Detected (Not Detect) Coronavirus OC43 (PCR) Not Detected (Not Detect) Coronavirus HKU1 (PCR) Not Detected (Not Detect) Coronavirus 229E (PCR) Not Detected (Not Detect) Coronavirus NL63 (PCR) Not Detected (Not Detect) Human Metapneumovirus Not Detected (Not Detect) Influenza A (H1) PCR Not Detected (Not Detect) Influ A (H1N1/09) PCR Not Detected (Not Detect) Influenza A (H3) PCR Not Detected (Not Detect) Influenza A Untype (PCR) Not Detected (Not Detect) Influenza Type B (PCR) DETECTED A (Not Detect) M.pneumoniae DNA (PCR) Not Detected (Not Detect) Parainfluenza 1 (PCR) Not Detected (Not Detect) Parainfluenza 2 (PCR) Not Detected (Not Detect) Parainfluenza 3 (PCR) Not Detected (Not Detect) Parainfluenza 4 (PCR) Not Detected (Not Detect) RSV (PCR) Not Detected (Not Detect) Entero/Rhino (PCR) Not Detected (Not Detect) - VTE Documentation of Mechanical Device: Graduated compression elastic hosiery Consult Discharge Plan - Plan Referrals: Jayson Bull DO [Primary Care Provider] - 11/08/16 2:30 pm
[2016-11-03 10:05] LABS: Red Cell Distribution Width 12.7 % (11.5-14.5)
[2016-11-03 10:14] LABS: BUN/Creatinine Ratio 5 (6-26); Blood Urea Nitrogen 3 mg/dL (7-20); Calcium 8.2 mg/dL (8.6-10.8); Carbon Dioxide 23 mEq/L (19-29); Chloride 109 mEq/L (98-109); Glucose 106 mg/dL (70-99); Osmolality,Calculated 285 (280-300); Potassium 3.5 mEq/L (3.5-4.5); Sodium 139 mEq/L (136-145); eGFR For African Americans > 60 (> 60); eGFR For Non-African Americans > 60 (> 60)
[2016-11-03 10:35] LABS: Hematocrit 36.8 % (35.3-44.9); Hemoglobin 12.5 g/dL (11.5-15.4); Immature Platelets 6.3 % (1.1-6.1); Mean Corpuscular Hemoglobin 31.5 pg (28.0-33.3); Mean Corpuscular Volume 92.7 fL (83.0-100.0); Mean Platelet Volume 11.2 fL (9.4-12.4); Platelet Count 102 K/mcL (140-400); Red Blood Count 3.97 M/mcL (3.82-4.97)
[2016-11-03 11:12] LABS: Lymphocytes # 0.8 K/mcL (0.6-4.6); Monocytes # 0.1 K/mcL (0.0-1.3); Neutrophils # 0.8 K/mcL (1.6-8.9); Platelet Estimate Decreased (Normal); Reactive Lymphocytes Present (Not Present)
--- NOTE | 2016-11-03 18:03 | Internal Med Progress Note ---
Date of Encounter: 11/03/16 Time of Encounter: 02:45 - Assessment and plan (1) Metabolic acidosis Current Visit: Yes Status: Acute (2) Hypomagnesemia Current Visit: Yes Status: Acute (3) Hypophosphatemia Current Visit: Yes Status: Acute (4) Influenza B Current Visit: Yes Status: Acute (5) Thrombocytopenia Current Visit: Yes Status: Acute - Time Spent With Patient Plan Pancytopenia most likely secondary to possible viral syndrome or bacterial infection. Discussed with the oncologist. He recommended to hold on discharge until her me to feel more than 1.5. Continue Flagyl for now. Continue IV fluid. Monitor electrolytes. Replace electrolytes as needed. Add Norvasc to with her uncontrolled blood pressure. Hydralazine as needed. Replace calcium and magnesium, recheck electrolytes next a.m.. Possible discharge in A.m. to ECF if her Neutrophils more than 1.5 25 - 35 minutes - Subjective Interval history: patient continued to complain of diarrhea and generalized weakness, stool for C. difficile is negative. Neutrophil feels trending up. Patient denies any nausea or vomiting. Patient denies any chest pain or shortness of breath. Patient denies any fever or chills. - Constitutional Vitals: Temp Pulse Resp BP Pulse Ox 98.4 F 89 14 142/59 96 11/03/16 16:19 11/03/16 16:19 11/03/16 16:19 11/03/16 16:19 11/03/16 16:19 General appearance: Present: cooperative, mild distress, A&O X 3, pleasant, answers questions appropriately - Neck Neck exam general surgery: Present: supple, trachea midline. Absent: lymphadenopathy - Respiratory Respiratory exam: Present: CTAB. Absent: accessory muscle use, rales, rhonchi, wheezes - Cardiovascular Cardiovascular exam: Present: RRR, +S1, +S2. Absent: diastolic murmur, gallop, rubs, systolic murmur - GI/Abdominal GI/Abdominal exam: Present: normal bowel sounds, soft, no peritoneal signs. Absent: distended, tenderness - Extremities Exam Extremities exam: Present: warm, radial pulses palpable and symetrical. Absent : calf tenderness, cyanotic, pedal edema Internal Medicine: Result - Labs CBC & Chem 7: 11/03/16 09:32 11/03/16 09:32 Labs: Short CBC 11/03/16 Range/Units 09:32 WBC 1.8 L (4.3-11.1) K/mcL Hgb 12.5 D (11.5-15.4) g/dL Hct 36.8 (35.3-44.9) % Plt Count 102 L (140-400) K/mcL Neutrophils # 0.8 L (1.6-8.9) K/mcL BMP 11/03/16 09:32 Sodium 139 Potassium 3.5 Chloride 109 Carbon Dioxide 23 BUN 3 L Creatinine 0.55 L Glucose 106 H Calcium 8.2 L - ABG Interpretation ABG results: PT/INR, D-dimer PT 14.1 Seconds (9.4-12.1) H 10/31/16 08:21 D-Dimer 641 ng/mLFEU (0-500) H 10/31/16 08:21 - VTE Documentation of Mechanical Device: Graduated compression elastic hosiery Consult Discharge Plan - Plan Referrals: Jayson Bull DO [Primary Care Provider] - 11/08/16 2:30 pm
[2016-11-03] MEDS ORDERED: Lactobacillus 1 EACH CAP.SPRINK PO SCH (18:15)
[2016-11-03] MEDS: Ondansetron 4 MG/2 ML VIAL IVP PRN (18:52)
[2016-11-03] MEDS: Famotidine 20 MG TABLET PO SCH (22:07)
[2016-11-04] MEDS: D5% in 0.9% NACL 1,000 ML IVC SCH (02:26)
[2016-11-04] MEDS: D5% in 0.9% NACL w KCl 20 MEQ/1,000 ML MLS IVC SCH (04:08)
[2016-11-04 05:20] LABS: Hemoglobin 11.5 g/dL (11.5-15.4); Red Cell Distribution Width 12.6 % (11.5-14.5)
[2016-11-04 05:23] LABS: Eosinophils % 1.5 %; Hematocrit 34.1 % (35.3-44.9); Lymphocytes # 1.1 K/mcL (0.6-4.6); Mean Corpuscular HGB Conc 33.7 g/dL (31.6-35.5); Mean Corpuscular Hemoglobin 31.4 pg (28.0-33.3); Mean Corpuscular Volume 93.2 fL (83.0-100.0); Mean Platelet Volume 11.6 fL (9.4-12.4); Monocytes # 0.3 K/mcL (0.0-1.3); Monocytes % 13.6 %; Neutrophils # 0.7 K/mcL (1.6-8.9); Red Blood Count 3.66 M/mcL (3.82-4.97); Segmented Neutrophils % 31.9 %
[2016-11-04 05:31] LABS: Platelet Count 98 K/mcL (140-400)
[2016-11-04 05:39] LABS: BUN/Creatinine Ratio 11 (6-26); Blood Urea Nitrogen 6 mg/dL (7-20); Carbon Dioxide 23 mEq/L (19-29); Chloride 111 mEq/L (98-109); Glucose 106 mg/dL (70-99); Magnesium 1.6 mg/dL (1.6-2.6); Osmolality,Calculated 292 (280-300); Phosphorous 3.1 mg/dL (2.3-4.7); Potassium 3.4 mEq/L (3.5-4.5); Sodium 142 mEq/L (136-145); eGFR For African Americans > 60 (> 60); eGFR For Non-African Americans > 60 (> 60)
[2016-11-04 05:52] LABS: Large Platelets Present (Not Present); Platelet Estimate Decreased (Normal); Reactive Lymphocytes Present (Not Present)
[2016-11-04] MEDS: Famotidine 20 MG TABLET PO SCH ×2 (09:30→20:47)
[2016-11-04] MEDS: Lactobacillus 1 EACH CAP.SPRINK PO SCH (09:30)
[2016-11-04] MEDS: Oseltamivir Phosphate 30 MG CAPSULE PO SCH (09:30)
[2016-11-04] MEDS: Loratadine 10 MG TABLET PO SCH (09:30)
[2016-11-04] MEDS: metroNIDAZOLE 500 MG TABLET PO SCH (09:31)
[2016-11-04] MEDS: Metoprolol XL (24 HR) Succ 25 MG TAB.ER.24H PO SCH (09:31)
--- NOTE | 2016-11-04 15:29 | Internal Med Progress Note ---
Date of Encounter: 11/04/16 Time of Encounter: 15:22 - Assessment and plan (1) Neutropenia Current Visit: Yes Status: Acute Assessment and plan: Etiology likely secondary to Influenza infection as neutropenia is a common occurrence with viral and bacterial infections. No evidence of acute bacterial infection - CXR negative, urinalysis without S/S of infection, c.diff is negative, will stop the flagyl, no focal symptoms, no fevers. Hem/Onc consulted and following. repeat wbc today improved , however neutrophil still low No prophylactic antibiotics required at this time. no fever. Continue to monitor closely. Continue neutropenia precautions. Blood culture drawn 10/30/16 is NGTD x 1 set. Qualifiers: Neutropenia type: unspecified Qualified Code(s): D70.9 - Neutropenia, unspecified (2) Frail elderly Current Visit: Yes Status: Acute Assessment and plan: very weak and frail from both poor appetite and current viral illness. supprotive tx, nutrition has been consulted. will need placement to ECF. high fall risk (3) Hypomagnesemia Current Visit: Yes Status: Acute Assessment and plan: replaced. (4) Influenza B Current Visit: Yes Status: Acute Assessment and plan: today is the last dose of tamiflu. does not have pneummonia, - Time Spent With Patient 25 - 35 minutes - Subjective Interval history: reports that she feels very weak with no energy and no appetite. denies any chest pain, has some cough, no n/v. wbc improved, neutrophil cpunt still low today. no fever, on neutropenia precautions and droplet precautions for flu. - Constitutional Vitals: Temp Pulse Resp BP Pulse Ox 97.2 F L 77 17 150/75 95 11/04/16 15:14 11/04/16 15:14 11/04/16 15:14 11/04/16 15:14 11/04/16 15:14 General appearance: Present: cooperative, mild distress, A&O X 3, pleasant, answers questions appropriately Exam: Neck Neck exam general surgery: Present: supple, trachea midline. Absent: lymphadenopathy - Respiratory Respiratory exam: Present: CTAB. Absent: accessory muscle use, rales, rhonchi, wheezes - Cardiovascular Cardiovascular exam: Present: RRR, +S1, +S2. Absent: diastolic murmur, gallop, rubs, systolic murmur - GI/Abdominal GI/Abdominal exam: Present: normal bowel sounds, soft, no peritoneal signs. Absent: distended, tenderness - Extremities Exam Extremities exam: Present: warm, radial pulses palpable and symetrical. Absent : calf tenderness, cyanotic, pedal edema Internal Medicine: Result - Labs CBC & Chem 7: 11/04/16 04:47 11/04/16 04:47 Labs: Short CBC 11/04/16 Range/Units 04:47 WBC 2.1 L (4.3-11.1) K/mcL Hgb 11.5 (11.5-15.4) g/dL Hct 34.1 L (35.3-44.9) % Plt Count 98 L (140-400) K/mcL Neutrophils # 0.7 L (1.6-8.9) K/mcL BMP 11/04/16 04:47 Sodium 142 Potassium 3.4 L Chloride 111 H Carbon Dioxide 23 BUN 6 L Creatinine 0.53 L Glucose 106 H Calcium 8.0 L - ABG Interpretation ABG results: PT/INR, D-dimer PT 14.1 Seconds (9.4-12.1) H 10/31/16 08:21 D-Dimer 641 ng/mLFEU (0-500) H 10/31/16 08:21 - VTE Documentation of Mechanical Device: Intermittent pneumatic compression device Consult Discharge Plan - Plan Referrals: Jayson Bull DO [Primary Care Provider] - 11/08/16 2:30 pm
[2016-11-05] MEDS: D5% in 0.9% NACL w KCl 20 MEQ/1,000 ML MLS IVC SCH ×2 (03:19)
[2016-11-05 09:13] LABS: Basophils % 0.8 %; Eosinophils # 0.1 K/mcL (0.0-0.6); Hematocrit 36.7 % (35.3-44.9); Hemoglobin 12.3 g/dL (11.5-15.4); Immature Granulocytes % 0.8 % (0-4); Lymphocytes # 1.2 K/mcL (0.6-4.6); Lymphocytes % 47.8 %; Mean Corpuscular HGB Conc 33.5 g/dL (31.6-35.5); Mean Corpuscular Hemoglobin 30.7 pg (28.0-33.3); Mean Corpuscular Volume 91.5 fL (83.0-100.0); Monocytes # 0.3 K/mcL (0.0-1.3); Monocytes % 10.4 %; Platelet Count 125 K/mcL (140-400); Red Blood Count 4.01 M/mcL (3.82-4.97); Red Cell Distribution Width 12.5 % (11.5-14.5); Segmented Neutrophils % 38.2 %
[2016-11-05] MEDS: Loratadine 10 MG TABLET PO SCH (09:22)
[2016-11-05] MEDS: Metoprolol XL (24 HR) Succ 25 MG TAB.ER.24H PO SCH (09:22)
[2016-11-05] MEDS: Famotidine 20 MG TABLET PO SCH (09:23)
[2016-11-05] MEDS: Lactobacillus 1 EACH CAP.SPRINK PO SCH (09:23)
[2016-11-05 09:29] LABS: BUN/Creatinine Ratio 9 (6-26); Blood Urea Nitrogen 5 mg/dL (7-20); Calcium 8.2 mg/dL (8.6-10.8); Carbon Dioxide 25 mEq/L (19-29); Chloride 108 mEq/L (98-109); Glucose 103 mg/dL (70-99); Osmolality,Calculated 290 (280-300); Potassium 3.3 mEq/L (3.5-4.5); Sodium 141 mEq/L (136-145); eGFR For African Americans > 60 (> 60); eGFR For Non-African Americans > 60 (> 60)
[2016-11-05 09:37] LABS: Platelet Estimate Normal (Normal); Reactive Lymphocytes Present (Not Present)
--- NOTE | 2016-11-05 11:19 | Discharge Summary ---
Date of Encounter: 11/05/16 Time of Encounter: 11:16 - Discharge Diagnosis (1) Neutropenia Priority: Primary Status: Acute Qualifiers: Neutropenia type: unspecified Qualified Code(s): D70.9 - Neutropenia, unspecified (2) Frail elderly Priority: Primary Status: Acute (3) Hypomagnesemia Priority: Primary Status: Acute (4) Influenza B Priority: Primary Status: Acute - Discharge Medications Prescriptions: Calcium Carbonate [Tums] 1,000 mg PO TID 30 Days Lactobacillus [Culturelle] 2 each PO DAILY 30 Days Home Medications: Clorazepate Dipotassium [Tranxene T-Tab] 7.5 mg PO BID PRN 10/30/16 [History] Metoprolol XL (24 HR) Succ [Toprol Xl] 25 mg PO DAILY 10/30/16 [History] Sertraline [Zoloft] 25 mg PO DAILY 10/30/16 [History] Calcium Carbonate [Tums] 1,000 mg PO TID 30 Days 11/05/16 [Rx] Lactobacillus [Culturelle] 2 each PO DAILY 30 Days 11/05/16 [Rx] Allergies/Adverse Reactions: Allergies No Known Allergies Allergy (Verified 10/30/16 19:29) Date of admission: 11/02/16 12:40 Primary care physician: Jayson Bull, Consults: 11/03/16 08:50 Consult to Bench Manager [CONS] Routine Reason for SW Consult: discharge planning; referral to ECF Discharging clinician: Sterling Suarez Anticipated date of discharge: 11/05/16 - Patient Status Disposition: Transfer SNF Condition: Fair Functional capacity at discharge: independent ambulation Overall status at discharge: patient is progressing back to baseline - Discharge Instructions Follow Up With: Jayson Bull DO [Primary Care Provider] - 11/08/16 2:30 pm - Diet and Activity Activity: resume usual activities as tolerated Interval History: Ms. Gonsales is a 81 year old female past medical history of hypothyroidism, hypertension, anxiety, osteoporosis, and depression. The patient states that for about a week and a half prior to admission, she had a dry, nonproductive, persistent cough with headache. She also reported some generalized fatigue and malaise. Upon arrival, the patient was afebrile, but was tachycardic. Otherwise, the patient was hemodynamically stable. Labs were studies revealed a normal white blood cell count is normal differential. Basic metabolic panel within normal limits. LFTs were negative. TSH was normal. Troponin was negative. Chest x-ray was negative for any acute process. Influenza antigen swab was positive for influenza B. The patient was put on Rocephin and Zithromax empirically, which was later discontinued and was started on Tamiflu. Since admission, Her white blood cell count has dropped significantly to an absolute neutrophil count of 638. Stool panel was negative for any enteric pathogens and C. difficile was negative. Urinalysis was non- indicative of infection. Respiratory infection panel was sent and was negative except for influenza B. Hematology was consulted. She was treated symptomatically, she improved clinically with Tamiflu, did not have any fever, nausea or vomiting. Infectious disease was also consulted. The neutropenia is presumed to be secondary to viral infection given influenza positive. As per hematology, there is no need for Neupogen infusion at this time. Neutropenic precautions were applied while inpatient. She is being discharged today in stable condition to [facility]. she will f/u with her PCP after DC with repeat cbc. Hospital course: Ms. Gonsales is a 81 year old female Time spent discussing smoking cessation with patient: more than 10 minutes - Time Spent with Patient Total time spent providing and/or coordinating discharge services: Greater than 30 minutes - Constitutional Vitals: Temp Pulse Resp BP Pulse Ox 98.1 F 82 16 144/74 96 11/05/16 06:55 11/05/16 06:55 11/05/16 06:55 11/05/16 06:55 11/05/16 06:55 General appearance: Present: cooperative, A&O X 3, pleasant, no acute distress, answers questions appropriately Exam: Neck Neck exam general surgery: Present: supple, trachea midline. Absent: lymphadenopathy - Respiratory Respiratory exam: Present: CTAB. Absent: accessory muscle use, rales, rhonchi, wheezes - Cardiovascular Cardiovascular exam: Present: RRR, +S1, +S2. Absent: diastolic murmur, gallop, rubs, systolic murmur - GI/Abdominal GI/Abdominal exam: Present: normal bowel sounds, soft, no peritoneal signs. Absent: distended, tenderness - Extremities Exam Extremities exam: Present: warm, radial pulses palpable and symetrical. Absent : calf tenderness, cyanotic, pedal edema - VTE Documentation of Mechanical Device: Graduated compression elastic hosiery
--- NOTE | 2016-11-05 11:21 | Physician Discharge Referral ---
ExtendedCare Referral Info Transfer To: [facility] Provider in Charge: chiqui mckeon Institutional Level of Care: Intermediate - MR - Diagnosis (1) Neutropenia Status: Acute (2) Frail elderly Status: Acute (3) Hypomagnesemia Status: Acute (4) Influenza B Status: Acute - Transfer Medications Prescriptions: Calcium Carbonate [Tums] 1,000 mg PO TID 30 Days Lactobacillus [Culturelle] 2 each PO DAILY 30 Days Home Medications: Clorazepate Dipotassium [Tranxene T-Tab] 7.5 mg PO BID PRN 10/30/16 [History] Metoprolol XL (24 HR) Succ [Toprol Xl] 25 mg PO DAILY 10/30/16 [History] Sertraline [Zoloft] 25 mg PO DAILY 10/30/16 [History] Calcium Carbonate [Tums] 1,000 mg PO TID 30 Days 11/05/16 [Rx] Lactobacillus [Culturelle] 2 each PO DAILY 30 Days 11/05/16 [Rx] Allergies/Adverse Reactions: Allergies No Known Allergies Allergy (Verified 10/30/16 19:29) - Respiratory Orders Smoking Cessation: Smoking cessation has been advised. For more information, call the [place] Tobacco Quit Line at 2-099-YPBDNOW. - Advance Directives Code Status: Full Code - Mobility Orders Ambulate - Rehabiliation Orders Rehab Potential: Fair Rehab Orders: Evaluation for Physical Therapy, Evaluation for Occupational Therapy - Diet Orders Regular CERTIFICATION: I certify that the transfer of the above named patient to an Extended Care Facility is necessary for the continuing treatment of the diagnosis listed. The above information is true and accurate reflection of patient's current condition. Confidential - Redisclosure prohibited without a patient's written consent.
[2016-11-05 11:31] VITALS: BP 155/76
== END 2016-11-05 13:38 | DRG 872 ==
LOC: EMEROO 19:25 → 3ANU 19:25
PROVIDERS: ADMIT Internal Medicine Endocrinology, Diabetes & Metabolism; ATTEND Internal Medicine